=== PATIENT | female | born 1965 | race Caucasian/White ===

== ENCOUNTER 2021-10-19 16:00 | Outpatient (CLI) | payer BC, SELFPAY ==
[2021-10-19 14:16] LABS: Chloride* 106 mmol/L (96-114); Potassium* 4.4 mmol/L (3.6-5.1); Sodium* 142 mmol/L (135-149)
[2021-10-19 14:19] LABS: Blood Urea Nitrogen* 20 mg/dL (7-30); Carbon Dioxide* 28 mmol/L (20-32); Creatinine* 0.8 mg/dL (0.5-1.5); Estimated Glomerular Filt Rate 86 ml/min
[2021-10-19 14:20] LABS: Calcium* 9.6 mg/dL (8.4-10.6); Glucose* 99 mg/dL (60-115)
== END 2021-10-19 16:01 | disposition home or self-care (01) ==
PROVIDERS: PCP Family Medicine; Visit Provider Family Medicine
DX: R30.0 Dysuria (principal); Z13.1 Encounter for screening for diabetes mellitus
CPT/HCPCS: 80048; 87086; 87186

== ENCOUNTER 2022-01-17 10:50 | Outpatient (CLI) | payer BC, SELFPAY ==
--- OUTSIDE RECORDS SUMMARY | 2022-01-17 10:53 | XMS_ITS | Encounter Summary ---
:1965 Author Organization [place] Address [facility] [address] Care Team Providers Name Role Phone Stan Lomas MD Primary Care Provider Reason for Referral Diagnostic Imaging XR (Routine) - Closed Specialty Diagnoses / Procedures Referred By Contact Refer red To Contact Diagnoses Encounter for lipid screening for cardiovascular disease Stan Lomas MD Procedures Radiologist Consult For Cardiology Radiologist Consult For Cardiology [facility] [address] [place] [address] Referral ID Status Reason Start Date Expiration Date Visits Requ ested Visits Authorized [id number] Closed 05/19/2020 05/19/2021 [address] Scan (Routine) - Denied Specialty Diagnoses / Procedures Referred By Contact Refer red To Contact Radiology. Diagnoses Encounter for lipid screening for cardiovascular disease Stan Lomas MD Rh Ct Scan Procedures CT Coronary Calcium Scan CT Coronary Calcium Scan [facility] [address] [place], [place] [address] [address] [place] [address] Referral ID Status Reason Start Date Expiration Date Visits Requ ested Visits Authorized [id number] Denied 05/18/2020 05/18/2021 1 0 Reason for Visit Diagnostic Imaging CT Scan (Routine) - Denied Specialty Diagnoses / Procedures Referred By Contact Refer red To Contact Radiology. Diagnoses Encounter for lipid screening for cardiovascular disease Stan Lomas MD Rh Ct Scan Procedures CT Coronary Calcium Scan CT Coronary Calcium Scan [facility] [address] [facility] [place], [place] [address] [address] [place] [address] Referral ID Status Reason Start Date Expiration Date Visits Requ ested Visits Authorized [id number] Denied 05/18/2020 05/18/2021 1 0 Encounter Details Date Type Department Care Team Description 07/13/2020 [facility] Non-Fv Credentialed Pro vider, Radiology Encounter for lipid Encounter [facility] Anish Caballero MD [address] [place] [address] screening for [address] [address] Social History Tobacco Use Types Packs/Day Years Used Date Smoking Tobacco: Never Alcohol Use Standard Drinks/Week Comments No 0 (1 standard drink = 0.6 oz pure alcoho l) Sex Assigned at Date Recorded Not on file COVID-19 Exposure Response Date Recorded In the last month, have you been in contact with No / Unsure 07/13/2020 12:43 PM CDT someone who was confirmed or suspected to have Coronavirus / COVID-19? documented as of this encounter Medications at Time of Discharge Medication Sig Dispensed Refills Start Date End Date estradiol (ESTRACE) 1 MG Take 1 tablet by 90 tablet 3 02/20 tabletIndications: Need for mouth daily. prophylactic hormone replacement therapy (postmenopausal) losartan (COZAAR) 50 MG Take 0.5 tablets by 90 tablet 3 11/2012 tabletIndications: mouth daily. Unspecified essential hypertension MULTI-VITAMIN OR TABS one daily 0 11/04/2003 simvastatin (ZOCOR) 40 MG Take 1 tablet by 90 tablet 3 02/11 tabletIndications: Mixed mouth at HS hyperlipidemia VITAMIN C 500 MG OR TABS ONE TABLET DAILY 3 MONTHS 1 01/03 VITAMIN E 400 UNIT OR CAPS 1 qod 3 MONTHS 1 7 documented as of this encounter Plan of Treatment Not on filedocumented as of this encounter Procedures Procedure Name Priority Date/Time Associated Diagnosis Comme nts RADIOLOGIST CONSULT Routine 07/13/2020 1:08 Encounter for lipi d Results for this FOR CARDIOLOGY PM CDT screening for procedure ar e in cardiovascular disease the r esults section. CT CALCIUM SCREENING Routine 07/13/2020 1:08 Encounter for lip id Results for this PM CDT screening for procedure are in cardiovascular disease the r esults section. documented in this encounter Results Radiologist Consult For Cardiology (07/13/2020 1:08 PM CDT) Anatomical Region Laterality Modality Computed Tomography Specimen (Source) Anatomical Location Collection Method / Collectio n Time Received Time / Laterality Volume Narrative 07/13/2020 3:57 PM CDT RADIOLOGIST CONSULT FOR CARDIOLOGY 07/13/2020 1:08 PM HISTORY: 54-year-old woman with screenin g exam for cardiovascular disease. COMPARISON: May 24, 2016. TECHNIQUE: Axial noncontrast CT images o btained through the heart. FINDINGS: Please note this report will f ocus on soft tissue findings. Please see separate cardiology report fo r all cardiac and vascular findings. No abnormally enlarged mediastinal lymph nodes. The visible solid organs in the upper abdomen are unremark able. No acute osseous abnormality. 3 mm nodule in the right maggie ng near the minor fissure is again identified and unchanged. Scattere d bibasilar opacities more pronounced than previous exam, may be at electasis. DERECK PATEL MD Procedure Note Dereck Patel MD - 07/13/2020 RADIOLOGIST CONSULT FOR CARDIOLOGY 1:08 PM HISTORY: 54-year-old woman with screenin g exam for cardiovascular disease. COMPARISON: May 24, 2016. TECHNIQUE: Axial noncontrast CT images o btained through the heart. FINDINGS: Please note this report will f ocus on soft tissue findings. Please see separate cardiology report fo r all cardiac and vascular findings. No abnormally enlarged mediastinal lymph nodes. The visible solid organs in the upper abdomen are unremark able. No acute osseous abnormality. 3 mm nodule in the right maggie ng near the minor fissure is again identified and unchanged. Scattere d bibasilar opacities more pronounced than previous exam, may be at electasis. DERECK PATEL MD Stan Lomas MD IMG DIAGNOSTIC IMAGING ORDER JACQUELINE CT Coronary Calcium Scan (07/13/2020 1:08 PM CDT) Anatomical Region Laterality Modality Chest, UMP CT CTA Computed Tomography Specimen (Source) Anatomical Location Collection Method / Collectio n Time Received Time / Laterality Volume Narrative 07/13/2020 2:12 PM CDT Procedure: CT CALCIUM SCREENING Examination Date: 07/13/2020 1:08 PM Clinical Information: Encounter for lipi d screening for cardiovascular disease; Encounter for lipid screening f or cardiovascular disease Ordering Provider: Stan Lomas PROCEDURE: High-resolution, ECG synchron ized multi-slice computed tomography was performed without inciden t. Coronary calcification was analyzed using [employer] calcium scoring software. Scan protocol was optimized to minimize radiation exposure . The total radiation exposure was calculated to be 123 DLP and 1.722 m Sv. FINDINGS: Overall quality of the study: Good. CORONARY ARTERY CALCIUM SCORES: Left main coronary artery: 0 Left anterior descending coronary artery : 0 Circumflex coronary artery: 0 Right coronary artery: 0 TOTAL CALCIUM SCORE: 0 The total Agatston calcium score is 0. The ascending aorta at the level of the right pulmonary artery on this noncontrast study is mildly dilated dustin uring 3.77 x 3.73 cm. Please review Radiology report for incid ental noncardiac findings that will follow separately CALCIUM SCORE OF ZERO: A calcium score o f zero places this individual in the lowest quartile when compared to an age and gender matched control group. If the patient has more t rausch one cardiac risk factor then the risk of coronary heart disease, or myocardial infarction is less than 0.4% per year (Gallo Patel. et al. JACC, 2007; 49:378-402). GENERAL RECOMMENDATIONS: Adoption and ma intenance of a healthy lifestyle is recommended for all people. This should include regular, appropriate exercise and observance of a proper diet, to ensure balanced nutrition and weight control. T obacco use should be avoided. Cholesterol has been linked to coronary atherosclerosis, and we strongly encourage adhering to the recom mendations of the National Cholesterol Education Panel (NCEP). For primary prevention, these include a target goal for total choleste rol of less than 200 mg/dl, HDL cholesterol of greater than 40 mg/dl , triglycerides of less than 150 mg/dl, and LDL cholesterol of less t rausch 130 mg/dl. However note that these are general recommendations o nly, and as with all such matters, the personal physician should b e consulted regarding recommendations appropriate for the gladis vidual. ANISH KILGORE MD Procedure Note Anish Caballero MD - 021 Procedure: CT CALCIUM SCREENING Examination Date: 07/13/2020 1:08 PM Clinical Information: Encounter for lipi d screening for cardiovascular disease; Encounter for lipid screening f or cardiovascular disease Ordering Provider: Stan Lomas PROCEDURE: High-resolution, ECG synchron ized multi-slice computed tomography was performed without inciden t. Coronary calcification was analyzed using [employer] calcium scoring software. Scan protocol was optimized to minimize radiation exposure . The total radiation exposure was calculated to be 123 DLP and 1.722 m Sv. FINDINGS: Overall quality of the study: Good. CORONARY ARTERY CALCIUM SCORES: Left main coronary artery: 0 Left anterior descending coronary artery : 0 Circumflex coronary artery: 0 Right coronary artery: 0 TOTAL CALCIUM SCORE: 0 The total Agatston calcium score is 0. The ascending aorta at the level of the right pulmonary artery on this noncontrast study is mildly dilated dustin uring 3.77 x 3.73 cm. Please review Radiology report for incid ental noncardiac findings that will follow separately CALCIUM SCORE OF ZERO: A calcium score o f zero places this individual in the lowest quartile when compared to an age and gender matched control group. If the patient has more t rausch one cardiac risk factor then the risk of coronary heart disease, or myocardial infarction is less than 0.4% per year (Raquel blackburn P. et al. JACC, 2007; 49:378-402). GENERAL RECOMMENDATIONS: Adoption and ma intenance of a healthy lifestyle is recommended for all people. This should include regular, appropriate exercise and observance of a proper diet, to ensure balanced nutrition and weight control. T obacco use should be avoided. Cholesterol has been linked to coronary atherosclerosis, and we strongly encourage adhering to the recom mendations of the National Cholesterol Education Panel (NCEP). For primary prevention, these include a target goal for total choleste rol of less than 200 mg/dl, HDL cholesterol of greater than 40 mg/dl , triglycerides of less than 150 mg/dl, and LDL cholesterol of less t rausch 130 mg/dl. However note that these are general recommendations o nly, and as with all such matters, the personal physician should b e consulted regarding recommendations appropriate for the gladis vidual. ANISH KILGORE MD Stan Lomas MD IMG CT ORDERABLES documented in this encounter Visit Diagnoses Diagnosis Encounter for lipid screening for cardio vascular disease documented in this encounter Care Teams Pantograph Ii Engraver Relationship Specialty Start Date End Date Stan Lomas MD PCP - General Family Practice 05/02/[address] [facility] [address] [place] [address] documented as of this encounter
--- OUTSIDE RECORDS SUMMARY | 2022-01-17 10:53 | XMS_ITS | Encounter Summary ---
:1965 Author Organization [place] Address [address] [place] [address]. [place] [address] Care Team Providers Name Role Phone Dominick Shanks MD Primary Care Provider [phone] Reason for Visit Reason Onset Date Comments Outreach 05/21/2014 REATTRIBUTION Encounter Details Date Type Department Care Team Description 05/21/2014 Telephone [place] [facility] [address] [address] Social History Tobacco Use Types Packs/Day Years Used Date Smoking Tobacco: Never Alcohol Use Standard Drinks/Week Comments No 0 (1 standard drink = 0.6 oz pure alcoho l) Sex Assigned at Date Recorded Not on file documented as of this encounter Miscellaneous Notes Telephone Encounter - Joann Jimenez - 05/21/2014 3:19 PM CDT 05/21/2014 Call Regarding ReattributionPhysical Attempt n/a Message n/a Comments: SURESH scanned in. No call made. Outreach Web Sizer Joann Adames documented in this encounter Plan of Treatment Not on filedocumented as of this encounter Visit Diagnoses Not on filedocumented in this encounter Care Teams Border Patrol Agent Relationship Specialty Start Date End Date Dominick Shanks MD PCP - General 08/17/02 05/01/16 [place] [address] documented as of this encounter
--- OUTSIDE RECORDS SUMMARY | 2022-01-17 10:53 | XMS_ITS | Encounter Summary ---
:1965 Author Organization [place] Address [address] [place] [address]. [place] [address] Care Team Providers Name Role Phone Dominick Shanks MD Primary Care Provider [phone] Reason for Visit Reason Comments Derm Problem right thigh sore Encounter Details Date Type Department Care Team Description 08/28/2010 Office Visit [facility] Dominick Shanks Skin rash (Primary Dx) Shea Love MD [facility] XXX NO INFO FOUND [place] [address] XXX [phone] [place] [address] Social History Tobacco Use Types Packs/Day Years Used Date Smoking Tobacco: Never Alcohol Use Standard Drinks/Week Comments No 0 (1 standard drink = 0.6 oz pure alcoho l) Sex Assigned at Date Recorded Not on file documented as of this encounter Last Filed Vital Signs Vital Sign Reading Time Taken Comments Blood Pressure 136/90 08/28/2010 4:49 PM CDT Pulse - - Temperature 37.1 ??C (98.7 ??F) 08/28/2010 4:49 PM CDT Respiratory Rate - - Oxygen Saturation - - Inhaled Oxygen Concentration - - Weight 102.1 kg (225 lb) 08/28/2010 4:49 PM CDT Height 174 cm (5' 8.5) 08/28/2010 4:49 PM CDT Body Mass Index 33.71 08/28/2010 4:49 PM CDT documented in this encounter Progress Notes Dominick Shanks - 08/28/2010 7:19 PM CDT An area of skin rash that suddenly showed up on the patient's right thigh. Does not recall any particular irritation or injury or insect bite. It appears to be a area of eczema measuring about 2 cm. Also, she has a first degree sunburn on the dorsum of both feet. Given Diprolene for the skin rash. Use sparingly. Given a small sample of Silvadene cream for her feet. documented in this encounter Nursing Notes 08/28/2010 4:30 PM CDT >> SHERRI SOMMER Mon Aug 28, 2010 4:50 PM Patient presents with: Derm Problem - right thigh sore Initial BP 136/90 Temp 98.7 ??F (37.1 ??C) Ht 5' 8.5 (1.74 m) Wt 225 lb (102.059 kg) BMI 33.71 kg/m2 LMP 08/07/2006 Estimated Body mass index is 33.71 kg/(m^2) as calculated from the following: Height as of this encounter: 5' 8.5(1.74 m). Weight as of this encounter: 225 lb(102.059 kg).. BP completed using cuff size: large. Sherri Sommer/ CAMILA documented in this encounter Plan of Treatment Not on filedocumented as of this encounter Visit Diagnoses Diagnosis Skin rash - Primary Rash and other nonspecific skin eruption documented in this encounter Care Teams Quill Picking Machine Operator Relationship Specialty Start Date End Date Dominick Shanks MD PCP - General 08/17/02 05/01/16 [place] [address] documented as of this encounter
--- OUTSIDE RECORDS SUMMARY | 2022-01-17 10:53 | XMS_ITS | Encounter Summary ---
:1965 Author Organization [place] Address [address] [place] [address]. [place] [address] Care Team Providers Name Role Phone Stan Lomas MD Primary Care Provider Reason for Visit (Routine) - Closed Specialty Diagnoses / Procedures Referred By Contact Refer red To Contact Radiology / Radiology. Diagnoses sb pt, aware of fee Rh Ct Scan Procedures CT CALCIUM SCREENING [address] [place] [address] Phone: Fax: Referral ID Status Reason Start Date Expiration Date Visits Requ ested Visits Authorized [id number] Closed 05/24/2016 05/02/2017 1 1 Encounter Details Date Type Department Care Team Description 05/24/2016 [facility] Non-Fv Credentialed Fam loc history of Encounter [facility] Imaging Provider, Lab heart disease [address] [place] [address] Social History Tobacco Use Types Packs/Day Years Used Date Smoking Tobacco: Never Alcohol Use Standard Drinks/Week Comments No 0 (1 standard drink = 0.6 oz pure alcoho l) Sex Assigned at Date Recorded Not on file documented as of this encounter Medications at [...] encounter Procedures Procedure Name Priority Date/Time Associated Comments Diagnosis RADIOLOGIST CONSULT Routine 05/24/2016 1:58 PM Family history of Results for this FOR CARDIOLOGY CDT heart disease procedure ar e in the results section. CT CALCIUM SCREENING Routine 05/24/2016 1:58 PM Family history of Results for this CDT heart disease procedure are in the results section. documented in this encounter Results Radiologist Consult For Cardiology (05/24/2016 1:58 PM CDT) Anatomical Region Laterality Modality Computed Tomography Specimen (Source) Anatomical Location Collection Method / Collectio n Time Received Time / Laterality Volume Impressions 05/25/2016 8:01 AM CDT IMPRESSION: Two pulmonary nodules in the right lung, recommend dedicated chest CT without contrast to e valuate for additional pulmonary nodules in the nonvisualized p ortion of the lungs. LAURA DUMONT DO Narrative 05/25/2016 8:01 AM CDT RADIOLOGIST CONSULT FOR CARDIOLOGY ?? 05/24/2016 1:58 PM HISTORY: Family history of ischemic hear t disease and other diseases of the circulatory system. TECHNIQUE: CT chest without contrast. CT protocol was ordered by the cardiology service. COMPARISON: None. FINDINGS: Limited CT of the chest shows no pleural effusion, pericardial effusion or pneumothorax. No axillary or mediastinal lymphadenopathy. The heart is not enlarg ed. Minimal atelectasis in the lingula and left lower lobe. 3 mm pulmon gaby nodule in the right upper lobe (series 5, image 16). 2 mm pulmonar y nodule in the right upper lobe (series 2, image 21). Central airwa ys are patent. Bones: No suspicious bony lesions. Upper abdomen: Limited evaluation of the upper abdomen shows no focal abnormality. Procedure Note Laura Dumont DO - 2016 RADIOLOGIST CONSULT FOR CARDIOLOGY 2016 1:58 PM HISTORY: Family history of ischemic hear t disease and other diseases of the circulatory system. TECHNIQUE: CT chest without contrast. CT protocol was ordered by the cardiology service. COMPARISON: None. FINDINGS: Limited CT of the chest shows no pleural effusion, pericardial effusion or pneumothorax. No axillary or mediastinal lymphadenopathy. The heart is not enlarg ed. Minimal atelectasis in the lingula and left lower lobe. 3 mm pulmon gaby nodule in the right upper lobe (series 5, image 16). 2 mm pulmonar y nodule in the right upper lobe (series 2, image 21). Central airwa ys are patent. Bones: No suspicious bony lesions. Upper abdomen: Limited evaluation of the upper abdomen shows no focal abnormality. IMPRESSION: Two pulmonary nodules in the right lung, recommend dedicated chest CT without contrast to e valuate for additional pulmonary nodules in the nonvisualized p ortion of the lungs. LAURA DUMONT DO Referred Self IMRaquel DIAGNOSTIC IMAGING ORDER JACQUELINE CT Calcium Screening (05/24/2016 1:58 PM CDT) Anatomical Region Laterality Modality Chest, SUBRAD IR PROCEDURE, UMP CT CTA C omputed Tomography Specimen (Source) Anatomical Location Collection Method / Collectio n Time Received Time / Laterality Volume Narrative 05/24/2016 4:25 PM CDT Procedure: CT CALCIUM SCREENING Examination Date: 05/24/2016 1:58 PM Clinical Information: Family history of ischemic heart disease and other diseases of the circulatory system Ordering Provider: Self PROCEDURE: High-resolution, ECG synchron ized multi-slice computed tomography was performed without inciden t. Coronary calcification was analyzed using [employer] calcium scoring software. Scan protocol was optimized to minimize radiation exposure . The total radiation exposure was calculated to be 136 DLP and 1.9 mSv . FINDINGS: Overall quality of the study: Good. CORONARY ARTERY CALCIUM SCORES: Left main coronary artery: 0 Left anterior descending coronary artery : 0 Circumflex coronary artery: 0 Right coronary artery: 0 TOTAL CALCIUM SCORE: 0 The total Agatston calcium score is 0. Impressions No evidence of coronary artery calcifica tion Please review Radiology report for incid ental [...] infarction is less than 0.4% per year (Monserrat Patel et al. [facility], 2007; 49:378-402). GENERAL RECOMMENDATIONS: Adoption and ma [...] regarding recommendations appropriate for the gladis vidual. AMADOR ESCOBEDO MD Procedure Note Amador Escobedo MD - 05/24/2016For matting of this note might be different from the original. Procedure: CT CALCIUM SCREENING Examination Date: 05/24/2016 1:58 PM Clinical Information: Family history of ischemic heart disease and other diseases of the circulatory system Ordering Provider: Self PROCEDURE: High-resolution, ECG synchron ized multi-slice computed tomography was performed without inciden t. Coronary calcification was analyzed using [employer] calcium scoring software. Scan protocol was optimized to minimize radiation exposure . The total radiation exposure was calculated to be 136 DLP and 1.9 mSv . FINDINGS: Overall quality of the study: Good. CORONARY ARTERY CALCIUM SCORES: Left main coronary artery: 0 Left anterior descending coronary artery : 0 Circumflex coronary artery: 0 Right coronary artery: 0 TOTAL CALCIUM SCORE: 0 The total Agatston calcium score is 0. Impressions No evidence of coronary artery calcifica tion Please review Radiology report for incid ental [...] infarction is less than 0.4% per year (Monserrat Patel et al. [facility], 2007; 49:378-402). GENERAL RECOMMENDATIONS: Adoption and ma [...] consulted regarding recommendations appropriate for the gladis dual. AMADOR ESCOBEDO MD Referred Self IMRaquel CT ORDERABLES documented in this encounter Visit Diagnoses Diagnosis Family history of heart disease documented in this encounter Care Teams Relations Mgr Relationship Specialty Start Date End Date Stan Lomas MD PCP - General Family Practice 05/02/16 [facility] [address] [place] [address] documented as of this encounter
--- OUTSIDE RECORDS SUMMARY | 2022-01-17 10:53 | XMS_ITS | Encounter Summary ---
:1965 Author Organization [place] Address [address] [place] [address] Care Team Providers Name Role Phone Dominick Shanks MD Primary Care Provider [phone] Reason for Visit Reason Onset Date Comments Refill Request 03/02/2009 Estradiol Encounter Details Date Type Department Care Team Description 03/02/2009 Refill [facility] Dominick Castro Refill Request 1447 [facility] MD Ivan (Estradiol) [place] [address] XXX NO INFO FOUND [phone] [place] [address] (Wo rk) Social History Tobacco Use Types Packs/Day Years Used Date Smoking Tobacco: Never Alcohol Use Standard Drinks/Week Comments No 0 (1 standard drink = 0.6 oz pure alcoho l) Sex Assigned at Date Recorded Not on file documented as of this encounter Miscellaneous Notes Telephone Encounter - Gretchen Nath - 03/04/2009 9:21 AM CST Script faxed to pharmacy-Gretchen Jordan HOBBER OPERATOR documented in this encounter Plan of Treatment Not on filedocumented as of this encounter Visit Diagnoses Diagnosis Need for prophylactic hormone replacemen t therapy (postmenopausal) documented in this encounter Care Teams Transformation Consultant Relationship Specialty Start Date End Date Dominick Shanks MD PCP - General 08/17/02 05/01/16 [place] [address] documented as of this encounter
--- OUTSIDE RECORDS SUMMARY | 2022-01-17 10:53 | XMS_ITS | Encounter Summary ---
:1965 Author Organization [facility] Address [address] [place] [address]. [place] [address] Care Team Providers Name Role Phone Stan Lomas MD Primary Care Provider Encounter Details Date Type Department Care Team Description 12/14/[address] [facility] Scan, CLINIC REFERRAL Health Info [facility] Non-Provider [facility] [address] [place] [id number] Social History Tobacco Use Types Packs/Day Years Used Date Smoking Tobacco: Never Alcohol Use Standard Drinks/Week Comments No 0 (1 standard drink = 0.6 oz pure alcoho l) Sex Assigned at Date Recorded Not on file documented as of this encounter Plan of Treatment Not on filedocumented as of this encounter Visit Diagnoses Not on filedocumented in this encounter Care Teams Utility Porter Relationship Specialty Start Date End Date Stan Lomas MD PCP - General Family Practice 05/02/16 [facility] [address] [place] [address] documented as of this encounter
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
--- OUTSIDE RECORDS SUMMARY | 2022-01-17 10:53 | XMS_ITS | Encounter Summary ---
:1965 Author Organization [place] Address [address] [place] [address]. [place] [address] Care Team Providers Name Role Phone Stan Lomas MD Primary Care Provider Encounter Details Date Type Department Care Team Description 07/13/2020 Travel Social History Tobacco Use Types Packs/Day Years [...] / COVID-19? documented as of this encounter Plan of Treatment Not on filedocumented as of this encounter Visit Diagnoses Not on filedocumented in this encounter Care Teams Data Manager Relationship Specialty Start Date End Date Stan Lomas MD PCP - General Family Practice 05/02/16 [facility] [address] [place] [address] documented as of this encounter
--- OUTSIDE RECORDS SUMMARY | 2022-01-17 10:53 | XMS_ITS | Encounter Summary ---
:1965 Author Organization [place] Address [address] [place] [id number] Care Team Providers Name Role Phone Dominick Shanks MD Primary Care Provider [phone] Encounter Details Date Type Department Care Team Description 08/03/2009 Medical Correspondence [facility] Dominick Shanks Med. Exam Cert. Shea Love MD [address] FOUND [place] [address] XXX [phone] [place] [id number] Social History Tobacco Use Types Packs/Day Years Used Date Smoking Tobacco: Never Alcohol Use Standard Drinks/Week Comments No 0 (1 standard drink = 0.6 oz pure alcoho l) Sex Assigned at Date Recorded Not on file documented as of this encounter Plan of Treatment Not on filedocumented as of this encounter Visit Diagnoses Not on filedocumented in this encounter Care Teams Converter Operator Relationship Specialty Start Date End Date Dominick Shanks MD PCP - General 08/17/02 05/01/16 XXX NO INFO FOUND XXX [place] [address] documented as of this encounter
--- OUTSIDE RECORDS SUMMARY | 2022-01-17 10:53 | XMS_ITS | Encounter Summary ---
:1965 Author Organization [facility] Address [address] [place] [address]. [place] [address] Care Team Providers Name Role Phone Dominick Shanks MD Primary Care Provider [phone] Reason for Visit Reason Comments Physical with fasting labs Encounter Details Date Type Department Care Team Description 01/05/2009 Office Visit [facility] Dominick Shanks Mixed Hyp erlipidemia; Shea Love MD HYPERTENSION NOS; 1447 [facility] XXX NO INFO FOUND Well Woman Exam with Routine Gynecological Exam; [place] [address] XXX Need for Prophylactic Hormone Replacemen t Therapy (Postmenopausal) [phone] [place], [place] [address] Social History Tobacco Use Types Packs/Day Years Used Date Smoking Tobacco: Never Alcohol Use Standard Drinks/Week Comments No 0 (1 standard drink = 0.6 oz pure alcoho l) Sex Assigned at Date Recorded Not on file documented as of this encounter Last Filed Vital Signs Vital Sign Reading Time Taken Comments Blood Pressure 104/70 01/05/2009 9:59 AM BAKER CHEF Pulse 70 01/05/2009 9:59 AM BAKER CHEF Temperature 36.6 ??C (97.8 ??F) 01/05/2009 9:59 AM BAKER CHEF Respiratory Rate - - Oxygen Saturation - - Inhaled Oxygen Concentration - - Weight 99.8 kg (220 lb) 01/05/2009 9:59 AM BAKER CHEF Height 175.3 cm (5' 9) 01/05/2009 9:59 AM BAKER CHEF Body Mass Index 32.49 01/05/2009 9:59 AM BAKER CHEF documented in this encounter Progress Notes Rosenda Rodriguez - 01/13/2009 1:16 PM CST 01-05-09-Nathalie Andrés-Annual exam. Working very hard. Lots of stress. This is primarily from her ???s drinking. She is again talking about leaving if he does not go into treatment. SOR: HEENT negative. C-R, good exercise tolerance, etc. GI, no change in bowel habits. No bleeding. , menses unchanged. No abnormal bleeding. No urinary symptoms. Remainder of SOR is negative. Labs, CBC, chemistry and lipids are all normal. Pap taken. UA negative. She is going to continue the same medication. Talked about stress, taking medication for the stress.She does not seem to need that now. She will set up her own mammogram. She will call prn. R CHEF documented in this encounter Nursing Notes 01/05/2009 10:00 AM CST >> FRANCISCO PARNELL Wed Jan 05, 2009 10:00 AM Patient presents with: Physical - with fasting labs BP 104/70 Pulse 70 Temp (Src) 97.8 ??F (36.6 ??C) (Tympanic) Ht 5' 9 (1.753 m) Wt 220 lb (99.791 kg) LMP Hysterectomy Body Mass Index is Body mass index is 32.49 kg/(m^2). BP completed using cuff size: bella Parnell RN documented in this encounter Plan of Treatment Not on filedocumented as of this encounter Procedures Procedure Name Priority Date/Time Associated Diagnosis Comme nts HCL UA MICRO IF Routine 01/05/2009 10:41 HYPERTENSION NO S Results for this POSITIVE AM BAKER CHEF Well Woman Exam with procedu re are in Routine Gynecological the re sults Exam section. CL AFF CBC WITH Routine 01/05/2009 10:41 Well Woman Exam with Results for this PLATELETS, DIFF AM BAKER CHEF Routine Gynecological pro cedure are in Exam the results section. HCL COMPREHENSIVE Routine 01/05/2009 10:41 HYPERTENSION NOS Results for this METABOLIC PANEL AM BAKER CHEF Well Woman Exam with proc edure are in Routine Gynecological the re sults Exam section. CL AFF A.M.A. LIPID Routine 01/05/2009 10:41 Mixed Hyperlipide perlita Results for this PANEL AM BAKER CHEF procedure are i n the results section. HCL PAP THIN LAYER Routine 01/05/2009 12:00 Well Woman Exam wi th Results for this SCREEN AM BAKER CHEF Routine Gynecological proced ure are in Exam the results section. documented in this encounter Results (ABNORMAL) CBC WITH PLATELETS, DIFF (01/05/2009 10:41 AM BAKER CHEF) Patholo gist Method Time Signature WBC 8.1 4.0 - [facility] 11.0 10e9/L RBC Count 5.49 (H) 3.8 - 5.2 [facility] 10e12/L Hemoglobin 15.4 11.7 - [facility] 15.7 g/dL Hematocrit 49.1 (H) 35.0 - [facility] 47.0 % MCV 90 78 - 100 [facility] fl MCH 28.1 26.5 - [facility] 33.0 pg MCHC 31.4 (L) 31.5 - [facility] 36.5 g/dL RDW 12.9 10.0 - [facility] 15.0 % Platelet Count 263 150 - 450 [facility] 10e9/L Diff Method Automated [facility] Method % Lymphocytes 29 20 - 48 % [facility] % Monocytes 5 0 - 12 % [facility] % Granulocytes 66 40 - 75 % [facility] Absolute 2.3 0.8 - 5.3 [facility] Lymphocytes 10e9/L Absolute 0.4 0.0 - 1.3 [facility] Monocytes 10e9/L Absolute 5.4 1.6 - 8.3 [facility] Granulocytes 10e9/L Specimen Anatomical Collection Method Collection Time Receive d Time (Source) Location / / Volume Laterality 01/05/2009 10:41 01/05/2009 AM BAKER CHEF 10:42 AM BAKER CHEF Dominick Shanks MD LABORATORY Performing Organization Address City/State/ZIP Code Phon e Number [facility] A.M.A. COMPREHENSIVE MET.PANEL (01/05/2009 10:41 AM BAKER CHEF) P athologist Signature Sodium 141 133 - 144 [place] mmol/L [facility] Potassium 3.9 3.4 - 5.3 [facility] mmol/L [facility] Chloride 105 94 - 109 [place] mmol/L [facility] Carbon Dioxide 24 20 - 32 [place] mmol/L [facility] Anion Gap 12 6 - 17 [place] mmol/L [facility] Glucose 93 60 - 99 [place] mg/dL [facility] Urea Nitrogen 12 5 - 24 [place] mg/dL [facility] Creatinine 0.78 0.52 - [facility] 1.04 mg/dL [facility] Comment: New IDMS-traceable calibration beginning 06/12/07 GFR Estimate 81 >60 mL/min/1.7m2 [place] [facility] GFR Estimate If Black >90 >60 mL/min/1.7m2 [facility] Calcium 9.3 8.5 - 10.4 mg/dL [facility] Bilirubin Total 0.7 0.2 - 1.3 mg/dL [facility] Albumin 4.2 3.9 - 5.1 g/dL [facility] Protein Total 7.6 6.8 - 8.8 g/dL [facility] Alkaline Phosphatase 96 40 - 150 U/L [facility] EW [facility] ALT 31 0 - 50 U/L [facility] AST 24 0 - 45 U/L [facility] Specimen Anatomical Collection Method Collection Time Receive d Time (Source) Location / / Volume Laterality 01/05/2009 10:41 01/05/2009 AM BAKER CHEF 10:42 AM BAKER CHEF Dominick Shanks MD LABORATORY Performing Organization Address City/State/ZIP Code Phon e Number [facility] [address] [place] [address] [facility] A.M.A. LIPID PANEL (01/05/2009 10:41 AM BAKER CHEF) P athologist Signature Cholesterol 189 0 - 200 [place] mg/dL [facility] Comment: LDL Cholesterol is the primary guide to therapy: LDL-cholesterol goal in high risk patients is <100 mg/dL and in very high risk patients is <70 mg/dL. The NCEP recommends further evaluation of: patients with cholesterol <200 mg/dL if additional risk factors are present, cholesterol >240 mg/dL, triglycerides >150 mg/dL, or HDL <40 mg/dL. Triglycerides 129 0 - 150 mg/dL [facility] HDL Cholesterol 51 50 - 110 mg/dL [facility] LDL Cholesterol Calculated 112 0 - 129 mg/dL [facility] VLDL-Cholesterol 26 0 - 30 mg/dL [place] [facility] Cholesterol/HDL Ratio 3.7 0.0 - 5.0 [facility] Specimen Anatomical Collection Method Collection Time Receive d Time (Source) Location / / Volume Laterality 01/05/2009 10:41 01/05/2009 AM BAKER CHEF 10:42 AM BAKER CHEF Dominick Shanks MD LABORATORY Performing Organization Address City/State/ZIP Code Phon e Number [facility] [address] [place] [address] [facility] UA MICRO IF POSITIVE (01/05/2009 10:41 AM BAKER CHEF) [facility] Method Time Signature Color Urine Yellow [facility] Appearance Urine Clear [facility] Glucose Urine Negative NEG mg/dL [facility] Bilirubin Urine Negative NEG [facility] Ketones Urine Negative NEG mg/dL [facility] Specific [place] 1.020 1.003 - [facility] Urine 1.035 Blood Urine Negative NEG [facility] pH Urine 6.5 5.0 - 7.0 [facility] pH Protein Albumin Negative NEG mg/dL [facility] Urine Urobilinogen 0.2 0.2 - 1.0 [facility] Urine EU/dL Nitrite Urine Negative NEG [facility] Leukocyte Negative NEG [facility] Esterase Urine Source Midstream [facility] Urine Specimen Anatomical Collection Method Collection Time Receive d Time (Source) Location / / Volume Laterality 01/05/2009 10:41 01/05/2009 AM BAKER CHEF 10:42 AM BAKER CHEF Dominick Shanks MD LABORATORY Performing Organization Address City/State/ZIP Code Phon e Number [facility] A THIN LAYER PAP SCREEN (01/05/2009 12:00 AM BAKER CHEF) Component Value Ref Test Analysis [facility]formed At [facility] Range Method Time Signature PAP NIL COPATH Copath Report COPATH Patient Name: NATHALIE RODRIGUEZ MR#: [id number] Specimen #: [id number] Collected: 01/05/2009 Received: 01/05/2009 Reported: 01/10/2009 09:39 Ordering Phy(s): DOMINICK SHANKS SPECIMEN/STAIN PROCESS: Pap thin layer prep screening ([facility]) ? Pap-Cyto x 1, Reflex HPV x 1 SOURCE: Cervical, endocervical ---- Pap thin layer prep screening ([facility]) SPECIMEN ADEQUACY: Satisfactory for evaluation. -Transformation zone component absent. CYTOLOGIC INTERPRETATION: Negative for Intraepithelial Lesion or Malignancy Electronically signed out by: TOMEKA Batista (ASCP) Processed and screened at [facility] ntsid Counts Include [address] CLINICAL HISTORY: Hysterectomy, Previous normal pap Date of Last Pap: 01-06-08, TESTING LAB LOCATION: [address] ??[id number] COLLECTION SITE: Client: ??[facility] Location: JOFP (S) Specimen (Source) Anatomical Collection Method Collection Time Re ceived Time Location / / Volume Laterality 01/05/2009 01/05/2009 2:24 PM BAKER CHEF Dominick Shanks MD LABORATORY Performing Organization Address City/State/ZIP Code Phon e Number [facility] documented in this encounter Visit Diagnoses Diagnosis Mixed hyperlipidemia HYPERTENSION NOS Unspecified essential hypertension Well woman exam with routine gynecologic al exam Routine gynecological examination Need for prophylactic hormone replacemen t therapy (postmenopausal) documented in this encounter Care Teams Auto Garage Mechanic Relationship Specialty Start Date End Date Dominick Shanks MD PCP - General 08/17/02 05/01/16 [place] [address] documented as of this encounter
--- OUTSIDE RECORDS SUMMARY | 2022-01-17 10:53 | XMS_ITS | Encounter Summary ---
:1965 Author Organization [facility] Address [address] [place] [address]. [place] [address] Care Team Providers Name Role Phone Dominick Shanks MD Primary Care Provider [phone] Encounter Details Date Type Department Care Team Description 12/27/2010 Orders Only [facility] Dominick Shanks DIAGNOSIS NOT YET Shea Love MD DEFINED (Primary Dx) 14[address] [facility] XXX NO INFO FOUND [place] [address] XXX [phone] [place] [address] Social History Tobacco Use Types Packs/Day Years Used Date Smoking Tobacco: Never Alcohol Use Standard Drinks/Week Comments No 0 (1 standard drink = 0.6 oz pure alcoho l) Sex Assigned at Date Recorded Not on file documented as of this encounter Plan of Treatment Not on filedocumented as of this encounter Procedures Procedure Name Priority Date/Time Associated Diagnosis Comme nts MA SCREENING DIGITAL BILATERAL Routine 12/27/2010 DIAGNOSIS NOT YET DEFINED documented in this encounter Results Mammo Screening digital (bilat) (12/27/2010) Anatomical Region Laterality Modality Breast Bilateral Other Specimen (Source) Anatomical Location Collection Method / Collectio n Time Received Time / Laterality Volume 12/27/2010 Narrative This result has an attachment that is no t available. Dominick Shanks MD IMG MAMMOGRAPHY ORDERABLES documented in this encounter Visit Diagnoses Diagnosis DIAGNOSIS NOT YET DEFINED - Primary documented in this encounter Care Teams Facepiece Line Supervisor Relationship Specialty Start Date End Date Dominick Shanks MD PCP - General 08/17/02 05/01/16 [place] [address] documented as of this encounter
--- OUTSIDE RECORDS SUMMARY | 2022-01-17 10:53 | XMS_ITS | Encounter Summary ---
:1965 Author Organization [facility] Address [address] [place] [address] Care Team Providers Name Role Phone Stan Lomas MD Primary Care Provider Reason for Visit Reason Comments Consult Left leg VV w/ pain. US done at [facility] (report in yellow folder). No hx of tx Encounter Details Date Type Department Care Team Description 02/08/[address] [facility] Rowan Rivas Vari cose veins of Vein Clinic Zarina Renee MD both lower [address] ex tremities with pain [address] [place] [id number] (Primary Dx) [place] [id number] [place] R[place] [id number] (Wo rk) Social History Tobacco Use Types Packs/Day Years Used Date Smoking Tobacco: Never Smokeless Tobacco: Never Alcohol Use Standard Drinks/Week Comments No 0 (1 standard drink = 0.6 oz pure alcoho l) Sex Assigned at Date Recorded Not on file COVID-19 Exposure Response Date Recorded In the last month, have you been in contact with No / Unsure 02/08/2021 1:39 PM ASSISTANT BRANCH MANAGER someone who was confirmed or suspected to have Coronavirus / COVID-19? documented as of this encounter Progress Notes Rowan Rivas MD - 02/08/2021 2:00 PM CST Images from the original note were not included. [facility] CONSULTATION HPI: Nathalie Bowen is a 55 year old female who presents with complaints of left lower extremity pain and varicose veins. She said that she had an episode of lateral left calf pain with associated hard, tender nodularity around a varicose vein cluster in November of 2020; she was evaluated by her PCP and ultimately referred for further evaluation. She has other varicosities, primarily along the medial left thigh, with throbbing on occasion. She says that she sometimes get similar symptoms in the right thigh. Rubbing the throbbing areas seems to help. She will feel pain maybe 2-3 days in a week, with several weeks of no pain. It is very sporadic. No heaviness or fatigue in her legs, no swelling in her a nkles. No itching or burning of the skin. She has never used compression hose. She believes she has had varicose veins with intermittent throbbing for decades. No history of DVT or trauma to the legs. Ms. Bowen was evaluated at [facility]. She underwent venous duplex US on 12/14/20, with reported findings of patent and competent deep veins in the left leg, with GSV reflux on the left (maximal time 6500 msec) from the mid-thigh to the saphenofemoral junction, with a competent GSV from the ankle to the distal thigh. The SSV was too small to be evaluated, and no note is made of AASV presence orcompetence. I have reviewed and updated the history. PAST MEDICAL HISTORY: Past Medical History: Diagnosis Date ??? Status post hysterectomy 2008 HTN Hyperlipidemia Current Outpatient Medications Medication Sig Dispense Refill ??? estradiol (ESTRACE) 1 MG tablet Take 1 tablet by mouth daily. 90 tablet 3 ??? losartan (COZAAR) 50 MG tablet Take 0.5 tablets by mouth daily. 90 tablet 3 ??? MULTI-VITAMIN OR TABS one daily 0 ??? simvastatin (ZOCOR) 40 MG tablet Take 1 tablet by mouth at HS 90 tablet 3 ??? VITAMIN C 500 MG OR TABS ONE TABLET DAILY 3 MONTHS 1 YEAR ??? VITAMIN E 400 UNIT OR CAPS 1 qod 3 MONTHS 1 YEAR PAST SURGICAL HISTORY: Past Surgical History: Procedure Laterality Date ??? HYSTERECTOMY, PAP NO LONGER INDICATED 02/2006 ??? SURGICAL HISTORY OF - s/p Childbirth x4, AB x2 ??? SURGICAL HISTORY OF - Lapar Tubal fulgaration, resection ??? SURGICAL HISTORY OF - 08/12 Excision Lt axillary mole ??? SURGICAL HISTORY OF - 08/13 Excision Lt arm lesion ??? SURGICAL HISTORY OF - 11/02/05 D&C ,benign ALLERGIES: Allergies Allergen Reactions ??? No Known Drug Allergies FAMILY HISTORY: Family History Problem Relation Age of Onset ??? Diabetes Father ??? Heart Disease Father triple bypass ??? Hypertension Mother ??? Lipids Brother Nobody has varicose veins in the family. No known family history of hypercoagulability or hemophilias. SOCIAL HISTORY: Social History Tobacco Use ??? Smoking status: Never Smoker ??? Smokeless tobacco: Not on file Substance Use Topics ??? Alcohol use: No Never smoker. Does not drink alcohol. No illicit drug use. 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 Enjoys cross-stitch. REVIEW OF SYSTEMS: 10-pt ROS negative except as noted in HPI. Vital signs: [facility] 08/07/2006 PHYSICAL EXAM: General: Sitting comfortably in chair, NAD. HEENT: EOMI and conjugate, MMM Respiratory: Normal respiratory effort. Cardiovascular: Pulse is regular. Musculoskeletal: Normal walking gait around exam room. Grossly normal and symmetric strength and ROMin BLE. edema present. Vascular: dorsalis pedis: palp BL; posterior tibial: palp BL. Cap refill < 3 sec over feet/toes. Veins: right lateral distal thigh and posterior calf varicosities, left medial thigh and anterior thigh varicosities extending to left medial and lateral knee and calf varicosities. No telangiectasias present. Neurologic: A&Ox4 Psychiatric: Pleasantly conversant ASSESSMENT / PLAN: Nathalie Bowen is a 55 year old female who presents with complaints of focal intermittent throbbing along prominent varicosities in the left thigh and calf, and occasionally in the right thigh. ??? I briefly discussed the pathophysiology of venous reflux and how that may be contributing to varicose veins ??? I explained that at her current state, her symptoms are fairly mild and she would likely not qualify for interventions ??? Recommended a trial of conservative therapy with 20-30 mmHg knee or thigh- high compression hose,to be worn daily ??? Ms. Bowen is welcome to follow up in clinic to evaluate response to conservative therapy and discuss further interventions if needed in future Rowan Rivas MD Total time spent on the date of this encounter doing: chart review, review of test results, patient visit, physical exam, education, counseling, developing plan of care, and documenting = 33 minutes STANT BRANCH MANAGER documented in this encounter Nursing Notes Salome Fuller, DEEP - 02/08/2021 2:00 PM CST Patient Reported symptoms: Right leg Heaviness None of the time Achiness A little of the time Swelling None of the time Throbbing None of the time Itching None of the time Appearance Not at all noticeable Impact on work/activities Symptoms but full able to participate Left Leg Heaviness None of the time Achiness A little of the time Swelling None of the time Throbbing A little of the time Itching None of the time Appearance Very noticeable Impact on work/activities Symptoms but full able to participate STANT BRANCH MANAGER documented in this encounter Plan of Treatment Not on filedocumented as of this encounter Visit Diagnoses Diagnosis Varicose veins of both lower extremities with pain - Primary Varicose veins of lower extremities with other complications documented in this encounter Care Teams Field Rep Relationship Specialty Start Date End Date Stan Lomas MD PCP - General Family Practice 05/02/16 [facility] [address] [place] [address] documented as of this encounter
--- OUTSIDE RECORDS SUMMARY | 2022-01-17 10:53 | XMS_ITS | Encounter Summary ---
:1965 Author Organization [facility] Address [address] [place] [address]. [place] [address] Care Team Providers Name Role Phone Dominick Shanks MD Primary Care Provider [phone] Reason for Visit Reason Comments Mole Encounter Details Date Type Department Care Team Description 09/19/2011 Office Visit [facility] Dominick Sahnks Skin lesi on of back Shea Love MD (Primary Dx) [address] [facility] XXX NO INFO FOUND [place] [address] XXX [phone] XXX [place] [address] Social History Tobacco Use Types Packs/Day Years Used Date Smoking Tobacco: Never Alcohol Use Standard Drinks/Week Comments No 0 (1 standard drink = 0.6 oz pure alcoho l) Sex Assigned at Date Recorded Not on file documented as of this encounter Last Filed Vital Signs Vital Sign Reading Time Taken Comments Blood Pressure 120/80 09/19/2011 10:37 AM CDT Pulse 72 09/19/2011 10:37 AM CDT Temperature 36.7 ??C (98 ??F) 09/19/2011 10:37 AM CDT Respiratory Rate - - Oxygen Saturation 96% 09/19/2011 10:37 AM CDT Inhaled Oxygen Concentration - - Weight 103.4 kg (228 lb) 09/19/2011 10:37 AM CDT Height 174.6 cm (5' 8.75) 09/19/2011 10:37 AM CDT Body Mass Index 33.92 09/19/2011 10:37 AM CDT documented in this encounter Progress Notes Dominick Shanks MD - 09/19/2011 6:12 PM CDT Patient has a small lesion of the right upper back which is growing and she wants it removed. Lesion is a keratosis. The margins are well outlined and it is clearly benign. The lesion and removed with hyfrecation under local. No specimens sent. Usual aftercare. documented in this encounter Nursing Notes 09/19/2011 10:00 AM CDT >> SHERRI SOMMER Wed Sep 19, 2011 10:44 AM Mole on right upper back. Initial BP 120/80 Pulse 72 Temp 98 ??F (36.7 ??C) Ht 5' 8.75 (1.746 m) Wt 228 lb (103.42 kg) BMI 33.91 kg/m2 SpO2 96% LMP 08/07/2006 Estimated Body mass index is 33.91 kg/(m^2) as calculated from the following: Height as of this encounter: 5' 8.75(1.746 m). Weight as of this encounter: 228 lb(103.42 kg).. BP completed using cuff size: large. Sherri Sommer/ CAMILA documented in this encounter Plan of Treatment Not on filedocumented as of this encounter Visit Diagnoses Diagnosis Skin lesion of back - Primary Unspecified disorder of skin and subcuta neous tissue documented in this encounter Care Teams Data Services Developer Relationship Specialty Start Date End Date Dominick Shanks MD PCP - General 08/17/02 05/01/16 [place] [address] documented as of this encounter
--- OUTSIDE RECORDS SUMMARY | 2022-01-17 10:53 | XMS_ITS | Encounter Summary ---
:1965 Author Organization [facility] Address [address] [place] [address]. [place] [address] Care Team Providers Name Role Phone Dominick Shanks MD Primary Care Provider [phone] Encounter Details Date Type Department Care Team Description 08/03/2009 Medical Correspondence [facility] Dominick Shanks DOT Form Shea Love MD [address] [place] [address] XXX NO INFO FOUND [place] [address] XXX [phone] [place] [address] Social History Tobacco Use Types Packs/Day Years Used Date Smoking Tobacco: Never Alcohol Use Standard Drinks/Week Comments No 0 (1 standard drink = 0.6 oz pure alcoho l) Sex Assigned at Date Recorded Not on file documented as of this encounter Plan of Treatment Not on filedocumented as of this encounter Visit Diagnoses Not on filedocumented in this encounter Care Teams Alodize Machine Operator Relationship Specialty Start Date End Date Dominick Shanks MD PCP - General 08/17/02 05/01/16 XXX NO INFO FOUND XXX [place] [address] documented as of this encounter
--- OUTSIDE RECORDS SUMMARY | 2022-01-17 10:53 | XMS_ITS | Clinical Summary ---
:1965 Author Organization [facility] Address [address] [place] [address]. [place] [address] Care Team Providers Name Role Phone Stan Lomas MD Primary Care Provider Rowan Rivas MD Unavailable [phone] Allergies Active Allergy Reactions Severity Noted Date Comments No Known Drug Allergies 11/04/2003 Medications Medication Sig Dispensed Refills Start Date End Date Status MULTI-VITAMIN OR TABS one daily 0 11/04/2003 Active VITAMIN E 400 UNIT OR 1 qod 3 MONTHS 1 01/03/2007 Active CAPS VITAMIN C 500 MG OR TABS ONE TABLET DAILY 3 MONTHS 1 01/04/20 07 Active simvastatin (ZOCOR) 40 Take 1 tablet by 90 tablet 3 02/21/2012 Active MG tabletIndications: mouth at HS Mixed hyperlipidemia losartan (COZAAR) 50 MG Take 0.5 tablets 90 tablet 3 3 Active tabletIndications: by mouth daily. Unspecified essential hypertension Additional Information Patient not taking. Reported on 02/08/2021 estradiol (ESTRACE) 1 MG Take 1 tablet by 90 tablet 3 02/20/19 13 Active tabletIndications: Need for mouth daily. prophylactic hormone replacement therapy (postmenopausal) Additional Information Patient not taking. Reported on 02/08/2021 irbesartan (AVAPRO) 150 MG tablet Take 150 mg by mouth daily 0 02/01/2021 Active Active Problems Problem Noted Date HYPERLIPIDEMIA LDL GOAL <130 12/11/2009 Essential hypertension 02/14/2006 Overview: Problem list name updated by automated p rocess. Provider to review Mixed hyperlipidemia 01/16/2005 Family history of malignant neoplasm of breast 005 Status post hysterectomy Overview: 2008 Resolved Problems Problem Noted Date Resolved Date Excessive or frequent menstruation 02/14/200605/03 Immunizations Name Administration Dates Next Due HepB 02/17/2000, 09/13/1999, 08/16/1999 Influenza (IIV3) PF 11/03/2008, 01/06/2008, 12/11/2005, 11/0 02/2004, 12/22/2002 TDAP Vaccine (Adacel) 06/27/2011 Family History Medical History Relation Comments Lipids Brother 3 Diabetes Father Heart Disease Father triple bypass Hypertension Mother Relation Status Comments Brother 1 Alive Brother 2 Alive Brother 3 Father Alive Mother Alive Social History Tobacco Use Types Packs/Day Years Used Date Smoking Tobacco: Never Smokeless Tobacco: Never Alcohol Use Standard Drinks/Week Comments No 0 (1 standard drink = 0.6 oz pure alcoho l) Sex Assigned at Date Recorded Not on file Last Filed Vital Signs Vital Sign Reading Time Taken Comments Blood Pressure 132/80 02/21/2012 9:58 AM FORESTRY FIRE AID Pulse 76 02/21/2012 9:58 AM FORESTRY FIRE A[employer] Temperature 36.6 ??C (97.8 ??F) 02/21/2012 9:58 AM FORESTRY FIRE AID Respiratory Rate 18 08/13/2006 10:45 AM CDT Oxygen Saturation 99% 02/21/2012 9:58 AM FORESTRY FIRE A[employer] Inhaled Oxygen Concentration - - Weight 101.6 kg (224 lb) 02/21/2012 9:58 AM FORESTRY FIRE A[employer] Height 174.6 cm (5' 8.75) 02/21/2012 9:58 AM FORESTRY FIRE AID Body Mass Index 33.32 02/21/2012 9:58 AM FORESTRY FIRE AID Plan of Treatment Health Maintenance Due Date Last Done Comments ADVANCE CARE PLANNING 1965 ANNUAL REVIEW OF HM ORDERS 1965 CT COLONOGRAPHY 1965 FIT-DNA (Cologuard) 1965 FIT 1965 FLEX SIG 1965 COLONOSCOPY 09/11/1975 COLORECTAL CANCER 09/11/1975 SCREENING HIV SCREENING 1980 HEPATITIS C SCREENING 09/11/1983 YEARLY PREVENTIVE VISIT 02/08/2012 02/07/2011, 01/18/2010, 01/05/2009, Additional history exists MAMMO SCREENING 12/27/2012 12/27/2010, 08/25/2009, 12/16/2007, Additional history exists ZOSTER IMMUNIZATION (1 of 09/11/2015 2) LIPID 02/12/2017 02/13/2012, 02/07/2011, 01/18/2010, Additional history exists COVID-19 Vaccine (3 - 09/12/2020 07/18/2020, 06/27/2020 Booster for Pfizer series) PHQ-2 (once per calendar 02/11/2021 year) INFLUENZA VACCINE (#1) 2021 10/21/2020, 10/21/2020, 10/13/2019, Additional history exists DTAP/TDAP/TD IMMUNIZATION 02/01/2031 02/01/2021, 06/27/2011 , (3 - Td or Tdap) 06/27/2011 HEPATITIS B IMMUNIZATION Completed 02/17/2000, 09/13/1999, 08/16/1999 PAP Discontinued 01/05/2009, 01/06/2008, 02/08/2006, Additional history exists IPV IMMUNIZATION Aged Out No longer eligi ble based on patient 's age to complete this topic MENINGITIS IMMUNIZATION Aged Out No longe r eligible based on patient 's age to complete this topic Pneumococcal Vaccine: Aged Out No longer eligible Pediatrics (0 to 5 Years) based on patient's age and At-Risk Patients (6 to to co mplete this topic 64 Years) Insurance Payer Benefit Plan / Subscriber ID Effective Dates Phone Addre ss Type Group BCBS BCBS OF [place] [id number] 2019-Presjason [phone] [address] [address] Indemnity t 0 [place] [address] Advance Directives For more information, please contact: [phone] Latest Code Status on File Code Status Date Activated Date Inactivated Comments None 11/10/2003 4:45 PM 11/10/2003 4:45 PM Care Teams Bander Hand Relationship Specialty Start Date End Date Stan Lomas MD PCP - General Family Practice 05/02/16 [facility] [address] [place] [address] Rowan Rivas Assigned Heart and 02/12/21 MD [facility] Provider [address] [facility] [address] [place] [id number]
--- OUTSIDE RECORDS SUMMARY | 2022-01-17 10:53 | XMS_ITS | Encounter Summary ---
:1965 Author Organization [facility] Address [address] [address] Care Team Providers Name Role Phone Stan Lomas MD Primary Care Provider Reason for Visit Reason Onset Date Comments Referral 12/16/2020 Encounter Details Date Type Department Care Team Description 12/16/2020 Telephone [facility] Nurse, [facility] Referral [place] [address] [place] [id number] Social History Tobacco Use Types Packs/Day Years Used Date Smoking Tobacco: Never Alcohol Use Standard Drinks/Week Comments No 0 (1 standard drink = 0.6 oz pure alcoho l) Sex Assigned at Date Recorded Not on file documented as of this encounter Miscellaneous Notes Telephone Encounter - Thomas Cunningham MA - 12/22/2020 1:40 PM CST Appt made TH POLICY NURSE Telephone Encounter - Nadeen Morales RN - 12/16/2020 12:44 PM CDT Routed to vein clinic scheduling to set up consult appt for patient. CHERYL Bello, RN [facility] Telephone Encounter - Sravanthi Shanks RN - 12/16/2020 10:19 AM CDT Per review of chart and care everywhere: 55-year-old female presents for evaluation of symptomatic left leg varicose veins. I discussed with the patient the etiology of varicose veins. I also discussed the treatment options including compression stockings, endovenous ablation, and varicose vein stripping. I think we will first obtain a left leg insufficiency ultrasound to evaluate this further. I also talked to the patient about wearing thigh-high compression stockings with the pressure of at least 30- 40 mm of mercury. Once the ultrasound comes back, I will call the patient to discuss results. Routing this to [facility] to contact patient and schedule. Sravanthi LUNA, RN [facility] Office: [phone] Telephone Encounter - Dee Dee Kiser - 12/16/2020 10:10 AM CDT Nathalie called stating Dr. Wadsworth with [facility] would like her to be seen at Vascular due to lack of blood flow in one vein, US completed at [facility]. Dee Dee Robert Routing to [facility] documented in this encounter Plan of Treatment Not on filedocumented as of this encounter Visit Diagnoses Not on filedocumented in this encounter Care Teams Web Site Project Manager Relationship Specialty Start Date End Date Stan Lomas MD PCP - General Family Practice 05/02/16 [facility] [address] [place] [address] documented as of this encounter
--- OUTSIDE RECORDS SUMMARY | 2022-01-17 10:53 | XMS_ITS | Encounter Summary ---
:1965 Author Organization [facility] Address [address] [place] [address]. [place] [address] Care Team Providers Name Role Phone Dominick Shanks MD Primary Care Provider [phone] Reason for Visit Reason Onset Date Comments Refill Request 02/13/2012 Simvastatin Encounter Details Date Type Department Care Team Description 02/13/2012 Refill [facility] [place] Miky Fisher MD Refill Request 1447 [facility] [address] [facility] (Simvastatin) [place] [address] [address] [phone] [place], [place] [id number] (Wo rk) Social History Tobacco Use Types Packs/Day Years Used Date Smoking Tobacco: Never Alcohol Use Standard Drinks/Week Comments No 0 (1 standard drink = 0.6 oz pure alcoho l) Sex Assigned at Date Recorded Not on file documented as of this encounter Miscellaneous Notes Telephone Encounter - Hiral Goodwin NP - 02/13/2012 5:43 PM CST . [employer] M[facility]OR Telephone Encounter - Sarita Fraser - 02/13/2012 8:41 AM CST Last refill: 11/09/11 Last Office Visit: 09/19/11 Last Physical: 02/07/11, pt was going to come in for appt today with Dr. Langford. Pt is still coming infor fasting labs and will follow up with Dr. Langford. Pt is requesting a 1 month refill. Ash Fraser RN [employer] [facility]OR documented in this encounter Plan of Treatment Not on filedocumented as of this encounter Visit Diagnoses Diagnosis Mixed hyperlipidemia - Primary documented in this encounter Care Teams Audiovisual Production Specialist Relationship Specialty Start Date End Date Dominick Shanks MD PCP - General 08/17/02 05/01/16 [place] [address] documented as of this encounter
--- OUTSIDE RECORDS SUMMARY | 2022-01-17 10:53 | XMS_ITS | Encounter Summary ---
:1965 Author Organization [facility] Address [address] [place] [address]. [place] [address] Care Team Providers Name Role Phone Dominick Shanks MD Primary Care Provider [phone] Reason for Visit Reason Comments Flu Shot Encounter Details Date Type Department Care Team Description 11/02/2008 Allied Health/Nurse [facility] Dominick Castro Flu Shot Visit 1447 [facility] [place] [address] XXX NO INFO FOUND [phone] [place] [address] (Wo rk) Social History Tobacco Use Types Packs/Day Years Used Date Smoking Tobacco: Never Alcohol Use Standard Drinks/Week Comments No 0 (1 standard drink = 0.6 oz pure alcoho l) Sex Assigned at Date Recorded Not on file documented as of this encounter Progress Notes Oralia Jarrett - 11/03/2008 11:41 AM CDT Injectable Influenza Immunization Documentation 1. Has the patient received the information for the injectable influenza vaccine? YES 2. Is the patient 6 months of age or older? YES 3. Does the patient have any of the following contraindications? Severe allergy to eggs? No Severe allergic reaction to previous influenza vaccines? No Allergy to contact lens solution/thimerosol? No History of Guillain-[place] syndrome? No Currently have moderate or severe illness? No 4. The vaccine has been administered and the patient was instructed to wait 15 minutes before leaving the building in the event of an allergic reaction: NO Vaccination given by Oralia Jarrett LPN documented in this encounter Plan of Treatment Not on filedocumented as of this encounter Visit Diagnoses Diagnosis Need for prophylactic vaccination and in oculation against influenza - Primary documented in this encounter Care Teams Systems Security Consultant Relationship Specialty Start Date End Date Dominick Shanks MD PCP - General 08/17/02 05/01/16 [place] [address] documented as of this encounter
--- OUTSIDE RECORDS SUMMARY | 2022-01-17 10:53 | XMS_ITS | Encounter Summary ---
:1965 Author Organization [facility] Address [address] [place] [address] Care Team Providers Name Role Phone Dominick Shanks MD Primary Care Provider Reason for Visit Reason Comments Blood Draw Encounter Details Date Type Department Care Team Description 02/13/2012 Orders Only [facility] HYPERTENSION NOS (Primary Dx ); 1447 [facility] Hyperlipidemia LDL goal <130 [place], [place] [address] Social History Tobacco Use Types Packs/Day Years Used Date Smoking Tobacco: Never Alcohol Use Standard Drinks/Week Comments No 0 (1 standard drink = 0.6 oz pure alcoho l) Sex Assigned at Date Recorded Not on file documented as of this encounter Miscellaneous Notes Addendum Note - Sourav Ulloa - 02/19/2012 8:51 AM CERTIFIED HISTOLOGIC TECHNICIAN Addended by: SOURAV ULLOA on: 02/19/2012 08:51 AM Modules accepted: Orders IFIED HISTOLOGIC TECHNICIAN documented in this encounter Plan of Treatment Not on filedocumented as of this encounter Procedures Procedure Name Priority Date/Time Associated Diagnosis Comme nts TSH WITH FREE T4 Routine 02/13/2012 8:45 AM Hyperlipidemia LDL goal Results for this REFLEX CERTIFIED HISTOLOGIC TECHNICIAN <130 procedure are in HYPERTENSION NOS the results section. LIPID REFLEX TO Routine 02/13/2012 8:45 AM Hyperlipidemia LDL goal Results for this DIRECT LDL PANEL CERTIFIED HISTOLOGIC TECHNICIAN <130 procedure are in HYPERTENSION NOS the results section. BASIC METABOLIC Routine 02/13/2012 8:45 AM Hyperlipidemia LDL goal Results for this PANEL CERTIFIED HISTOLOGIC TECHNICIAN <130 procedure are in HYPERTENSION NOS the results section. documented in this encounter Results TSH with free T4 reflex (02/13/2012 8:45 AM CERTIFIED HISTOLOGIC TECHNICIAN) athologist Signature TSH 1.57 0.4 - 5.0 [facility] mU/L [facility] Specimen Anatomical Collection Method Collection Time Receive d Time (Source) Location / / Volume Laterality Blood specimen 02/13/2012 8:45 AM 013 8:52 (specimen) CERTIFIED HISTOLOGIC TECHNICIAN AM CERTIFIED HISTOLOGIC TECHNICIAN Miky Langford MD LAB - BLOOD ORDERABLES Performing Organization Address City/[facility]/ZIP Code Phon e Number [facility] [address], [place] [address] [facility] (ABNORMAL) Lipid panel reflex to direct LDL (02/13/2012 8:45 AM CERTIFIED HISTOLOGIC TECHNICIAN) athologist Signature Cholesterol 211 (H) 0 - 200 [place] mg/dL [facility] Comment: LDL Cholesterol is the primary guide to therapy. The NCEP recommends further evaluation of: patients with cholesterol greater than 200 mg/dL if additional risk facto rs are present, cholesterol greater than 240 mg/dL, triglycerides greater than 1 50 mg/dL, or HDL less than 40 mg/dL. Triglycerides 112 0 - 150 mg/dL [facility] Comment: Fasting specimen HDL Cholesterol 55 50 - 110 mg/dL [facility] LDL Cholesterol Calculated 133 (H) 0 - 129 mg/dL [facility] Comment: LDL Cholesterol is the primary guide to therapy: LDL-cholesterol goal in high risk patients is <100 mg/dL and in very high risk patients is <70 mg/dL. VLDL-Cholesterol 22 0 - 30 mg/dL [facility] Cholesterol/HDL Ratio 3.8 0.0 - 5.0 [facility] Specimen Anatomical Collection Method Collection Time Receive d Time (Source) Location / / Volume Laterality Blood specimen 02/13/2012 8:45 AM 013 8:52 (specimen) CERTIFIED HISTOLOGIC TECHNICIAN AM CERTIFIED HISTOLOGIC TECHNICIAN Miky Langford MD LAB - BLOOD ORDERABLES Performing Organization Address City/[facility]/ZIP Code Phon e Number [facility] [address], [place] [address] [facility] Basic metabolic panel (02/13/2012 8:45 AM CERTIFIED HISTOLOGIC TECHNICIAN) P athologist Signature Sodium 143 133 - 144 [place] mmol/L [facility] Potassium 5.3 3.4 - 5.3 [place] mmol/L [facility] Chloride 107 94 - 109 [place] mmol/L [facility] Carbon Dioxide 24 20 - 32 [place] mmol/L [facility] Anion Gap 13 6 - 17 [place] mmol/L [facility] Glucose 73 60 - 99 [place] mg/dL [facility] Comment: Fasting specimen Urea Nitrogen 14 5 - 24 mg/dL [facility] Creatinine 0.67 0.52 - 1.04 mg/dL [facility] GFR Estimate >90 >60 mL/min/1.7m2 [place] O [facility] GFR Estimate If Black >90 >60 mL/min/1.7m2 F [facility] Calcium 10.1 8.5 - 10.4 mg/dL [facility] Specimen Anatomical Collection Method Collection Time Receive d Time (Source) Location / / Volume Laterality Blood specimen 02/13/2012 8:45 AM 013 8:52 (specimen) CERTIFIED HISTOLOGIC TECHNICIAN AM CERTIFIED HISTOLOGIC TECHNICIAN Miky Langford MD LAB - BLOOD ORDERABLES Performing Organization Address City/State/ZIP Code Phon e Number [facility] [address] [place] [address] [facility] documented in this encounter Visit Diagnoses Diagnosis HYPERTENSION NOS - Primary Unspecified essential hypertension Hyperlipidemia LDL goal <130 Other and unspecified hyperlipidemia documented in this encounter Care Teams Facsimile Operator Relationship Specialty Start Date End Date Dominick Shanks MD PCP - General 08/17/02 05/01/16 [place] [address] documented as of this encounter
--- OUTSIDE RECORDS SUMMARY | 2022-01-17 10:53 | XMS_ITS | Encounter Summary ---
:1965 Author Organization [facility] Address [address] [place] [address]. [place] [address] Care Team Providers Name Role Phone Stan Lomas MD Primary Care Provider Encounter Details Date Type Department Care Team Description 02/08/2021 Travel Social History Tobacco Use Types Packs/Day Years Used Date Smoking Tobacco: Never Smokeless Tobacco: Never Alcohol Use Standard Drinks/Week Comments No 0 (1 standard drink = 0.6 oz pure alcoho l) Sex Assigned at Date Recorded Not on file COVID-19 Exposure Response Date Recorded In the last month, have you been in contact with No / Unsure 02/08/2021 1:39 PM DIRECTOR SANITATION BUREAU someone who was confirmed or suspected to have Coronavirus / COVID-19? documented as of this encounter Plan of Treatment Not on filedocumented as of this encounter Visit Diagnoses Not on filedocumented in this encounter Care Teams Compensation And Benefits Analyst Relationship Specialty Start Date End Date Stan Lomas MD PCP - General Family Practice 05/02/16 [facility] [address] [place] [address] documented as of this encounter
--- OUTSIDE RECORDS SUMMARY | 2022-01-17 10:53 | XMS_ITS | Encounter Summary ---
:1965 Author Organization [facility] Address [address] [place] [address] Care Team Providers Name Role Phone Dominick Shanks MD Primary Care Provider [phone] Reason for Visit Reason Onset Date Comments Refill Request 02/07/2011 Simvastatin Encounter Details Date Type Department Care Team Description 02/07/2011 Refill [facility] Dominick Castro Refill Request [address] [facility] MD Ivan (Simvastatin) [place] [address] [place] NO INFO FOUND [phone] [place] [address] (Wo rk) Social History Tobacco Use Types Packs/Day Years Used Date Smoking Tobacco: Never Alcohol Use Standard Drinks/Week Comments No 0 (1 standard drink = 0.6 oz pure alcoho l) Sex Assigned at Date Recorded Not on file documented as of this encounter Miscellaneous Notes Telephone Encounter - Sarita Fraser - 02/07/2011 11:39 AM CST Last refill: 12/19/09 Last Office Visit: 02/07/11 Last Physical: 02/07/11 Ash Fraser RN ER WATER TESTER documented in this encounter Plan of Treatment Not on filedocumented as of this encounter Visit Diagnoses Diagnosis Mixed hyperlipidemia - Primary documented in this encounter Care Teams Sewing Teacher Relationship Specialty Start Date End Date Dominick Shanks MD PCP - General 08/17/02 05/01/16 [place] [address] documented as of this encounter
--- OUTSIDE RECORDS SUMMARY | 2022-01-17 10:53 | XMS_ITS | Encounter Summary ---
:1965 Author Organization [facility] [place] Address [address] [place] [address]. [place] [address] Care Team Providers Name Role Phone Dominick Shanks MD Primary Care Provider [phone] Reason for Visit Reason Comments Physical and pap Encounter Details Date Type Department Care Team Description 02/21/2012 Office Visit [facility] Miky Langford MD Routine general medical examination at a health care facility (Primary Dx); [address] Postnasal drip; [address] [facility] Mixed hyperlipidemia; [place] [address] [place], [place] HYPERTENSION NOS; [phone] Need for prophylactic hormone replacemen t therapy (postmenopausal) Social History Tobacco Use Types Packs/Day Years Used Date Smoking Tobacco: Never Alcohol Use Standard Drinks/Week Comments No 0 (1 standard drink = 0.6 oz pure alcoho l) Sex Assigned at Date Recorded Not on file documented as of this encounter Last Filed Vital Signs Vital Sign Reading Time Taken Comments Blood Pressure 132/80 02/21/2012 9:58 AM GUEST SERVICES COORDINATOR Pulse 76 02/21/2012 9:58 AM GUEST SERVICES COORDINATOR Temperature 36.6 ??C (97.8 ??F) 02/21/2012 9:58 AM GUEST SERVICES COORDINATOR Respiratory Rate - - Oxygen Saturation 99% 02/21/2012 9:58 AM GUEST SERVICES COORDINATOR Inhaled Oxygen Concentration - - Weight 101.6 kg (224 lb) 02/21/2012 9:58 AM GUEST SERVICES COORDINATOR Height 174.6 cm (5' 8.75) 02/21/2012 9:58 AM GUEST SERVICES COORDINATOR Body Mass Index 33.32 02/21/2012 9:58 AM GUEST SERVICES COORDINATOR documented in this encounter Patient Instructions Patient InstructionsBlanca Lau - 02/21/2012 10:00 AM CST PREVENTIVE HEALTH RECOMMENDATIONS: Get a [...] a year for an exam and cleaning. T SERVICES COORDINATOR documented in this encounter Progress Notes Miky Langford MD - 02/21/2012 10:00 AM CST SUBJECTIVE: CC: Nathalie Bowen is an 46 year old woman who presents for preventive health visit. Healthy Habits: ?? Do you get at least three servings of calcium containing foods daily (dairy, green leafy vegetables, etc.)? yes ?? Amount of exercise or daily activities, outside of work: a lot during work day(s) per week ?? Problems taking medications regularly No ?? Medication side effects: No ?? Have you had an eye exam in the past two years? no ?? Do you see a dentist twice per year? yes Other concerns to address: none Today's PHQ-2 Score: 0 Abuse: Current or Past(Physical, Sexual or Emotional)- NA Do you feel safe in your environment - Yes History Substance Use Topics ??? Smoking status: Never Smoker ??? Smokeless tobacco: Not on file ??? Alcohol Use: No The patient does not drink >3 drinks per day nor >7 drinks per week. Last Mammo:No results found. Last lipid profile: Total Cholesterol: Cholesterol Date Value [place] Status 02/13/2012 211* 0 - 200 mg/dL Final LDL Cholesterol is the primary guide to therapy. The NCEP recommends further evaluation of: patients with cholesterol greater than 200 mg/dL if additional risk factors are present, cholesterol greater than 240 mg/dL, triglycerides greater than 150 mg/dL, or HDL less than 40 mg/dL. LDL Cholesterol: LDL Cholesterol Calculated Date Value [place] Status 02/13/2012 133* 0 - 129 mg/dL Final LDL Cholesterol is the primary guide to therapy: LDL-cholesterol goal in high risk patients is <100 mg/dL and in very high risk patients is <70 mg/dL. HDL Cholesterol: HDL Cholesterol Date Value [place] Status 02/13/2012 55 50 - 110 mg/dL Final Reviewed orders with patient. Reviewed health maintenance and updated orders accordingly - Yes History of abnormal Pap smear: All Histories reviewed and updated in [facility]. Blanca Lau MA ROS: C: NEGATIVE for fever, chills, change [...] NEGATIVE for unusual urinary or vaginal symptoms. No vaginal bleeding. M: NEGATIVE for significant arthralgias or myalgia N: NEGATIVE for weakness, dizziness or paresthesias P: NEGATIVE for changes in mood or affect OBJECTIVE: BP 132/80 Pulse 76 Temp(Src) 97.8 ??F (36.6 ??C) (Tympanic) Ht 5' 8.75 (1.746 m) Wt 224 lb (101.606 kg) BMI 33.32 kg/m2 SpO2 99% LMP 08/07/2006 Estimated Body mass index is 33.32 kg/(m^2) as calculated from the following: Height as of this encounter: 5' 8.75(1.746 m). Weight as of this encounter: 224 lb(101.606 kg). GENERAL APPEARANCE: healthy, alert and no distress [...] palpable axillary masses or adenopathy CV: regular rate and rhythm, normal S1 S2, no S3 or S4, no murmur, click or rub, no peripheral edemaand peripheral pulses strong ABDOMEN: soft, nontender, no hepatosplenomegaly, no masses and bowel sounds normal (female): normal female external genitalia, vaginal mucosa pink, moist, well rugated and status post brissa bso, normal cuff MS: no musculoskeletal defects are noted and gait is age appropriate without ataxia SKIN: no suspicious lesions or rashes NEURO: Normal strength and tone, sensory exam grossly normal, mentation intact and speech normal PSYCH: mentation appears normal and affect normal/bright ATP III Guidelines FRAX Risk Assessment ICSI Preventive Guidelines ASSESSMENT/PLAN: Routine general medical examination at a health care facility (primary encounter diagnosis) Plan: lab reviewed with pt, increased LDL, had not focused on diet and exercise, will have her to focus more and recheck in 4 months Postnasal drip Comment: has no other sign infection Plan: antihistamine/sudafe/saline spray/gargle, if not improving within 4-6 weeks, will consider starting Flonase, pt acknowledged and agreed with the plan(pt will call us) Mixed hyperlipidemia - Lipid Profile with reflex to direct LDL; Future - simvastatin (ZOCOR) 40 MG tablet; Take 1 tablet by mouth at HS Hypertension nos - losartan (COZAAR) 50 MG tablet; Take 0.5 tablets by mouth daily. Need for prophylactic hormone replacement therapy (postmenopausal) - estradiol (ESTRACE) 1 MG tablet; Take 1 tablet by mouth daily. Other Orders - Cancel: PAP IMAGED THIN LAYER SCREEN Counseling: Dietary Guidelines for Americans, 2010 USDA's MyPlate regular exercise healthy diet/nutrition safe sex practices/STD prevention Advanced Planning reports that she has never smoked. She does not have any smokeless tobacco history on file. Estimated Body mass index is 33.32 kg/(m^2) as calculated from the following: Height as of this encounter: 5' 8.75(1.746 m). Weight as of this encounter: 224 lb(101.606 kg). Weight management plan: Diet regimen was discussed and plan is self-directed dieting: reduce calories, reduce portions, reduce carbs, increase fruits/vegetables and avoid sweets. Pt is on estrogen after BRISSA with BSO, for 3 years until now, will keep monitoring, and discuss in 2 years ago weaning off, pt acknowledged and agreed with the plan Miky Langford [facility] T SERVICES COORDINATOR documented in this encounter Nursing Notes 02/21/2012 10:00 AM CST >> BLANCA Foster Feb 21, 2012 10:00 AM Patient presents with: Physical - and pap Initial BP 132/80 Pulse 76 Temp(Src) 97.8 ??F (36.6 ??C) (Tympanic) Ht 5' 8.75 (1.746 m) Wt224 lb (101.606 kg) BMI 33.32 kg/m2 SpO2 99% LMP 08/07/2006 Estimated Body mass index is 33.32kg/(m^2) as calculated from the following: Height as of this encounter: 5' 8.75(1.746 m). Weight as of this encounter: 224 lb(101.606 kg).. BP completed using cuff size: large Blanca Lau MA documented in this encounter Plan of Treatment Not on filedocumented as of this encounter Visit Diagnoses Diagnosis Routine general medical examination at a health care facility - Primary Postnasal drip Mixed hyperlipidemia HYPERTENSION NOS Unspecified essential hypertension Need for prophylactic hormone replacemen t therapy (postmenopausal) documented in this encounter Care Teams Quality Control Checker Relationship Specialty Start Date End Date Dominick Shanks MD PCP - General 08/17/02 05/01/16 [place] [address] documented as of this encounter
--- OUTSIDE RECORDS SUMMARY | 2022-01-17 10:53 | XMS_ITS | Encounter Summary ---
:1965 Author Organization [facility] Address [address] [place] [address]. [place] [address] Care Team Providers Name Role Phone Dominick Shanks MD Primary Care Provider [phone] Reason for Visit Reason Comments Physical Pre Visit Planning - Done by dayplanner Blood Draw is fasting Encounter Details Date Type Department Care Team Description 01/18/2010 Office Visit [facility] Dominick Shanks woekaterina n exam with routine gynecological exam; Shea Love MD HYPERTENSION NOS; [address] [place] NO INFO FOUND Hyperlipidemia LDL goal <130 ; [place] [address] [place] Need for prophylactic hormone replacemen t therapy (postmenopausal); [phone] [place] [address] Social History Tobacco Use Types Packs/Day Years Used Date Smoking Tobacco: Never Alcohol Use Standard Drinks/Week Comments No 0 (1 standard drink = 0.6 oz pure alcoho l) Sex Assigned at Date Recorded Not on file documented as of this encounter Last Filed Vital Signs Vital Sign Reading Time Taken Comments Blood Pressure 124/80 01/18/2010 11:16 AM SEWING MACHINES SALESPERSON Pulse 64 01/18/2010 11:16 AM SEWING MACHINES SALESPERSON Temperature 36.6 ??C (97.8 ??F) 01/18/2010 11:16 AM SEWING MACHINES SALESPERSON Respiratory Rate - - Oxygen Saturation - - Inhaled Oxygen Concentration - - Weight 100.6 kg (221 lb 12.8 oz) 01/18/2010 11:16 AM SEWING MACHINES SALESPERSON Height 174.6 cm (5' 8.75) 01/18/2010 11:16 AM SEWING MACHINES SALESPERSON Body Mass Index 32.99 01/18/2010 11:16 AM SEWING MACHINES SALESPERSON documented in this encounter Progress Notes Gretchen Nath - 01/11/2010 4:51 PM CST CC: Nathalie Bowen is an 44 year old woman who presents for preventive health visit. Besides routine health maintenance, she has no other health concerns today . Healthy Habits: Do you get at least three servings of calcium containing foods daily (dairy, green leafy vegetables,etc.)? yes Outside of work or daily activities, how many days per week do you exercise for 30 minutes or longer? no Have you had an eye exam in the past two years? yes Do you see a dentist twice per year? no Staff Signature Sherri Sommer/ CAMILA PHQ-2 Over the last two weeks- Have you been bothered by little interest or pleasure in doing things? No Over the last two weeks- Have you been feeling down, depressed, or hopeless? No Abuse: Current or Past(Physical, Sexual or Emotional)- NO Do you feel safe in your environment - Yes History Substance Use Topics ??? Tobacco Use: Never ??? Alcohol Use: No The patient does not drink >3 drinks per day nor >7 drinks per week. Reviewed orders with patient. Reviewed health maintenance and updated orders accordingly - Yes Staff Signature Sherri Sommer/ CAMILA History of abnormal Pap smear: No All Histories reviewed and updated in [facility]. 01-18-10-Nathalie Bowen-Annual exam. 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 States she feels well except for painin the left lower abdomen only when her is drinking. He???s back to drinking again. She is on statin and BP med and tolerates both well. Remainder of system of review completely negative. She???s had previous hysterectomy. No hot flashes etc. Normal BP. Head and neck negative. Thyroid not palpable. Chest clear. Heart no murmur. Breasts no masses. Abdomen is negative. Pelvic good estrogen effect, well healed, adequate support. Rectal confirms no masses. Extrem and neuro negative. Labs are taken. New scripts. No bone density as yet. Recheck 1 year. NG MACHINES SALESPERSON documented in this encounter Nursing Notes 01/18/2010 10:45 AM CST >> SHERRI SOMMER Wed Jan 18, 2010 11:21 AM Patient presents with: Physical Pre Visit Planning - Done - by dayplanner Blood Draw - is fasting Initial BP 124/80 Pulse 64 Temp 97.8 ??F (36.6 ??C) Ht 5' 8.75 (1.746 m) Wt 221 lb 12.8 oz (100.608 kg) LMP 08/07/2006 Estimated Body mass index is 32.99 kg/(m^2) as calculated from the following: Height as of this encounter: 5' 8.75(1.746 m). Weight as of this encounter: 221 lb 12.8 oz(100.608 kg).. BP completed using cuff size: large. Sherri Sommer/ CAMILA documented in this encounter Plan of Treatment Not on filedocumented as of this encounter Procedures Procedure Name Priority Date/Time Associated Diagnosis Comme nts UA MACROSCOPIC WITH Routine 01/18/2010 12:14 HYPERTENSION NOS Results for this REFLEX TO MICRO PM SEWING MACHINES SALESPERSON procedure ar e in the results section. CBC WITH PLATELETS & Routine 01/18/2010 12:12 Well woman exam with Results for this DIFFERENTIAL PM SEWING MACHINES SALESPERSON routine gynecological proced ure are in exam the results section. LIPID PROFILE Routine 01/18/2010 12:12 Hyperlipidemia LDL Resu lts for this PM SEWING MACHINES SALESPERSON goal <130 procedure are i n the results section. COMPREHENSIVE Routine 01/18/2010 12:12 HYPERTENSION NOS Result s for this METABOLIC PANEL PM SEWING MACHINES SALESPERSON procedure ar e in the results section. documented in this encounter Results UA macroscopic with reflex to micro (01/18/2010 12:14 PM SEWING MACHINES SALESPERSON) [facility] Method Time Signature Color Urine Yellow MISYS Appearance Urine Clear MISYS Glucose Urine Negative NEG mg/dL MISYS Bilirubin Urine Negative NEG MISYS Ketones Urine Negative NEG mg/dL MISYS Specific [place] 1.015 1.003 - MISYS Urine 1.035 Blood Urine Negative NEG MISYS pH Urine 7.0 5.0 - 7.0 MISYS pH Protein Albumin Negative NEG mg/dL MISYS Urine Urobilinogen 0.2 0.2 - 1.0 MISYS Urine EU/dL Nitrite Urine Negative NEG MISYS Leukocyte Negative NEG MISYS Esterase Urine Source Midstream MISYS Urine Specimen Anatomical Collection Method Collection Time Receive d Time (Source) Location / / Volume Laterality Urine specimen 01/18/2010 12:14 0 (specimen) PM SEWING MACHINES SALESPERSON 12:15 PM SEWING MACHINES SALESPERSON Dominick Shanks MD LAB - URINE ORDERABLES Performing Organization Address City/State/ZIP Code Phon e Number JAN Comprehensive metabolic panel (01/18/2010 12:12 PM SEWING MACHINES SALESPERSON) P athologist Signature Sodium 140 133 - 144 [place] mmol/L [facility] Potassium 3.5 3.4 - 5.3 [place] mmol/L [facility] Chloride 106 94 - 109 [place] mmol/L [facility] Carbon Dioxide 27 20 - 32 [place] mmol/L [facility] Anion Gap 7 6 - 17 [place] mmol/L [facility] Glucose 85 60 - 99 [place] mg/dL [facility] Urea Nitrogen 11 5 - 24 [place] mg/dL [facility] Creatinine 0.74 0.52 - [place] 1.04 mg/dL [facility] Comment: New IDMS-traceable calibration beginning 06/12/07 GFR Estimate 85 >60 mL/min/1.7m2 [place] [facility] GFR Estimate If Black >90 >60 mL/min/1.7m2 [facility] Calcium 8.9 8.5 - 10.4 mg/dL [facility] Bilirubin Total 0.9 0.2 - 1.3 mg/dL [facility] Albumin 4.2 3.9 - 5.1 g/dL [facility] Protein Total 7.3 6.8 - 8.8 g/dL [facility] Alkaline Phosphatase 85 40 - 150 U/L [facility] ALT 36 0 - 50 U/L [facility] AST 23 0 - 45 U/L [facility] Specimen Anatomical Collection Method Collection Time Receive d Time (Source) Location / / Volume Laterality Blood specimen 01/18/2010 12:12 0 (specimen) PM SEWING MACHINES SALESPERSON 12:14 PM SEWING MACHINES SALESPERSON Dominick Shanks MD LAB - BLOOD ORDERABLES Performing Organization Address City/State/ZIP Code Phon e Number [facility][1] [address] [place] [address] [facility] Lipid panel (01/18/2010 12:12 PM SEWING MACHINES SALESPERSON) P athologist Signature Cholesterol 161 0 - 200 [place] mg/dL [facility] Comment: LDL Cholesterol is the primary guide to therapy. The NCEP recommends further evaluation of: patients with cholesterol <200 mg/dL if additional risk factors are present, cholesterol >240 mg/dL, triglycerides >150 mg/dL, or HDL <40 mg/dL. Triglycerides 72 0 - 150 mg/dL [facility] HDL Cholesterol 55 50 - 110 mg/dL [facility] LDL Cholesterol Calculated 92 0 - 129 mg/dL [facility] Comment: LDL Cholesterol is the primary guide to therapy: LDL-cholesterol goal in high risk patients is <100 mg/dL and in very high risk patients is <70 mg/dL. VLDL-Cholesterol 14 0 - 30 mg/dL [place] O [facility] Cholesterol/HDL Ratio 3.0 0.0 - 5.0 [facility] Specimen Anatomical Collection Method Collection Time Receive d Time (Source) Location / / Volume Laterality Blood specimen 01/18/2010 12:12 0 (specimen) PM SEWING MACHINES SALESPERSON 12:14 PM SEWING MACHINES SALESPERSON Dominick Shanks MD LAB - BLOOD ORDERABLES Performing Organization Address City/State/ZIP Code Phon e Number [facility][1] [address] [place] [address] [facility] (ABNORMAL) CBC with platelets differential (01/18/2010 12:12 PM SEWING MACHINES SALESPERSON) Patholo gist Method Time Signature WBC 6.4 4.0 - MISYS 11.0 10e9/L RBC Count 5.32 (H) 3.8 - 5.2 MISYS 10e12/L Hemoglobin 15.4 11.7 - MISYS 15.7 g/dL Hematocrit 44.9 35.0 - MISYS 47.0 % MCV 84 78 - 100 MISYS fl MCH 28.9 26.5 - MISYS 33.0 pg MCHC 34.3 31.5 - MISYS 36.5 g/dL RDW 13.2 10.0 - MISYS 15.0 % Platelet Count 231 150 - 450 [place]IS[place] 10e9/L Diff Method Automated MISYS Method % Neutrophils 51 40 - 75 % MISYS % Lymphocytes 37 20 - 48 % MISYS % Monocytes 9 0 - 12 % MISYS % Eosinophils 2 0 - 6 % MISYS % Basophils 1 0 - 2 % MISYS Absolute 3.3 1.6 - 8.3 MISYS Neutrophil 10e9/L Absolute 2.4 0.8 - 5.3 MISYS Lymphocytes 10e9/L Absolute 0.6 0.0 - 1.3 MISYS Monocytes 10e9/L Absolute 0.1 0.0 - 0.7 MISYS Eosinophils 10e9/L Absolute 0.0 0.0 - 0.2 MISYS Basophils 10e9/L Specimen Anatomical Collection Method Collection Time Receive d Time (Source) Location / / Volume Laterality Blood specimen 01/18/2010 12:12 0 (specimen) PM SEWING MACHINES SALESPERSON 12:14 PM SEWING MACHINES SALESPERSON Dominick Shanks MD LAB - BLOOD ORDERABLES Performing Organization Address City/State/ZIP Code Phon e Number MISYS documented in this encounter Visit Diagnoses Diagnosis Well woman exam with routine gynecologic al exam Routine gynecological examination HYPERTENSION NOS Unspecified essential hypertension Hyperlipidemia LDL goal <130 Other and unspecified hyperlipidemia Need for prophylactic hormone replacemen t therapy (postmenopausal) Mixed hyperlipidemia documented in this encounter Care Teams Transportation Sales Consultant Relationship Specialty Start Date End Date Dominick Shanks MD PCP - General 08/17/02 05/01/16 [place] [address] documented as of this encounter
--- OUTSIDE RECORDS SUMMARY | 2022-01-17 10:54 | XMS_ITS | Encounter Summary ---
:1965 Author Organization [facility] Address [address] [place] [address]. [place] [address] Care Team Providers Name Role Phone Dominick Shanks MD Primary Care Provider [phone] Reason for Visit Reason Onset Date Comments Other 07/24/2006 Dr Morales Encounter Details Date Type Department Care Team Description 07/24/2006 Telephone [facility] Dominick Castro Other (Dr Morales) [facility] [place] [address] [place] NO INFO FOUND [phone] [place] [address] (Wo rk) Social History Tobacco Use Types Packs/Day Years Used Date Smoking Tobacco: Never Alcohol Use Standard Drinks/Week Comments No 0 (1 standard drink = 0.6 oz pure alcoho l) Sex Assigned at Date Recorded Not on file documented as of this encounter Miscellaneous Notes Telephone Encounter - Zakia Shanks - 07/24/2006 8:11 AM CDT Office notes of 07/15/[address] Morales. documented in this encounter Plan of Treatment Not on filedocumented as of this encounter Visit Diagnoses Not on filedocumented in this encounter Care Teams Product Info Specialist Relationship Specialty Start Date End Date Dominick Shanks MD PCP - General 7/7/03 3/21/17 [place] [address] documented as of this encounter
--- OUTSIDE RECORDS SUMMARY | 2022-01-17 10:54 | XMS_ITS | Encounter Summary ---
:1965 Author Organization [facility] Address [address] [place] [address]. [place] [address] Care Team Providers Name Role Phone Dominick Shanks MD Primary Care Provider [phone] Encounter Details Date Type Department Care Team Description 04/09/2006 Orders Only [facility] Dominick Shanks DIAGNOSIS NOT YET Shea Love MD DEFINED (Primary Dx) [address] [facility] XXX NO INFO FOUND [place] [address] [place] [phone] [place] [address] Social History Tobacco Use Types Packs/Day Years Used Date Smoking Tobacco: Never Alcohol Use Standard Drinks/Week Comments No 0 (1 standard drink = 0.6 oz pure alcoho l) Sex Assigned at Date Recorded Not on file documented as of this encounter Plan of Treatment Not on filedocumented as of this encounter Procedures Procedure Name Priority Date/Time Associated Diagnosis Comme nts CL AFF SURGICAL PATHOLOGY Routine 11/02/2005 DIAGNOSIS NOT Y ET DEFINED documented in this encounter Results SURGICAL PATHOLOGY (11/02/2005) Specimen (Source) Anatomical Location Collection Method / Collectio n Time Received Time / Laterality Volume 11/02/2005 Narrative This result has an attachment that is no t available. Dominick Shanks MD LABORATORY documented in this encounter Visit Diagnoses Diagnosis DIAGNOSIS NOT YET DEFINED - Primary documented in this encounter Care Teams Line Construction Superintendent Relationship Specialty Start Date End Date Dominick Shanks MD PCP - General 7/7/03 3/21/17 [place] [address] documented as of this encounter
--- OUTSIDE RECORDS SUMMARY | 2022-01-17 10:54 | XMS_ITS | Encounter Summary ---
:1965 Author Organization [facility] Address [address] [place] [address]. [place] [address] Care Team Providers Name Role Phone Dominick Shanks MD Primary Care Provider [phone] Reason for Visit Reason Onset Date Comments Medication Request 10/11/2008 Simvastatin Encounter Details Date Type Department Care Team Description 10/11/2008 Telephone [facility] Dominick Shanks Medicatio n Request Shea Love MD (Simvastatin) [address] [facility] XXX NO INFO FOUND [place] [address] XXX [phone] [place] [address] (Wo rk) Social History Tobacco Use Types Packs/Day Years Used Date Smoking Tobacco: Never Alcohol Use Standard Drinks/Week Comments No 0 (1 standard drink = 0.6 oz pure alcoho l) Sex Assigned at Date Recorded Not on file documented as of this encounter Miscellaneous Notes Telephone Encounter - Gretchen Nath - 10/12/2008 2:41 PM CDT Pt called stating that her insurance no longer covered the Crestor and it is too expensive. Rx changed and called to the pharmacy. Gretchen Jordan documented in this encounter Plan of Treatment Not on filedocumented as of this encounter Visit Diagnoses Diagnosis Mixed hyperlipidemia - Primary documented in this encounter Care Teams Proj Mgr Relationship Specialty Start Date End Date Dominick Shanks MD PCP - General 08/17/02 05/01/16 [place] [address] documented as of this encounter
--- OUTSIDE RECORDS SUMMARY | 2022-01-17 10:54 | XMS_ITS | Encounter Summary ---
:1965 Author Organization [place] Address [address] [place] [address]. [place] [address] Care Team Providers Name Role Phone Dominick Shanks MD Primary Care Provider [phone] Reason for Visit Reason Comments Derm Problem spots on back Recheck Medication Encounter Details Date Type Department Care Team Description 03/08/2006 Office Visit [facility] Dominick Shanks HERPES ZO STER NOS; Shea Love MD HYPERTENSION NOS; [address] [place] [facility] XXX NO INFO FOUND MIXED HYPERLIPIDEMIA [place] [address] XXX [phone] XXX [place] [address] Social History Tobacco Use Types Packs/Day Years Used Date Smoking Tobacco: Never Alcohol Use Standard Drinks/Week Comments No 0 (1 standard drink = 0.6 oz pure alcoho l) Sex Assigned at Date Recorded Not on file documented as of this encounter Last Filed Vital Signs Vital Sign Reading Time Taken Comments Blood Pressure 120/70 03/08/2006 10:30 AM CURRICULUM DIRECTOR Pulse - - Temperature 36.7 ??C (98 ??F) 03/08/2006 10:30 AM CURRICULUM DIRECTOR Respiratory Rate - - Oxygen Saturation - - Inhaled Oxygen Concentration - - Weight 100.9 kg (222 lb 6.4 oz) 03/08/2006 10:30 AM CURRICULUM DIRECTOR Height - - Body Mass Index 32.84 02/08/2006 11:00 AM CURRICULUM DIRECTOR documented in this encounter Progress Notes Rosenda Rodriguez - 04/08/2006 9:07 AM CST 03-08-06-Nathalie Bowen-Followup. Concerned about possible med reaction. She has some sore spots on her back that have started since being on Lisinopril and Crestor. On exam, she has typical shingles rash. Definitely not for medication. BP is excellent. Famvir and Prednisone. Also, a new script for Lisinopril. Question of taking Crestor 10 mg. for her hyperlipidemia. There is a strong family history of reaction to statins. She will give this a try however. ICULUM DIRECTOR documented in this encounter Nursing Notes 03/08/2006 10:30 AM CST >> SHERRI OSMMER 03/08/2006 10:57 am Nathalie Bowen presents for check spots on back and med recheck. Initial BP 120/70 Temp 98 Wt 222 lbs 6.4 oz (100.9kg) Estimated Body mass index is 32.83 kg/(m^2) as calculated from: Height of 5' 9 (1.753 m) as of 02/08/06 Weight of 222 lbs 6.4 oz (100.880 kg) as of this encounter. BP completed using cuff size: large. Sherri Sommer/ CAMILA documented in this encounter Plan of Treatment Not on filedocumented as of this encounter Visit Diagnoses Diagnosis Herpes zoster without mention of complic ation Unspecified essential hypertension Mixed hyperlipidemia documented in this encounter Care Teams Threading Machine Tender Relationship Specialty Start Date End Date Dominick hSanks MD PCP - General 08/17/02 05/01/16 [place] [address] documented as of this encounter
--- OUTSIDE RECORDS SUMMARY | 2022-01-17 10:54 | XMS_ITS | Encounter Summary ---
:1965 Author Organization [place] Address [address] [place] [address]. [place] [address] Care Team Providers Name Role Phone Dominick Shanks MD Primary Care Provider [phone] Reason for Visit Reason Comments Hypertension Recheck Medication Cough Encounter Details Date Type Department Care Team Description 06/22/2006 Office Visit [facility] Dominick Shanks ADV EFF M ED/BIOL SUB NOS; Shea Love MD COUGH; [address] [facility] [place] XXX NO INFO FOUND HYPERTENSION NOS [place] [address] XXX [phone] [place] [address] Social History Tobacco Use Types Packs/Day Years Used Date Smoking Tobacco: Never Alcohol Use Standard Drinks/Week Comments No 0 (1 standard drink = 0.6 oz pure alcoho l) Sex Assigned at Date Recorded Not on file documented as of this encounter Last Filed Vital Signs Vital Sign Reading Time Taken Comments Blood Pressure 118/76 06/22/2006 10:00 AM CDT Pulse - - Temperature 37 ??C (98.6 ??F) 06/22/2006 10:00 AM CDT Respiratory Rate - - Oxygen Saturation - - Inhaled Oxygen Concentration - - Weight 101.6 kg (224 lb) 06/22/2006 10:00 AM CDT Height 175.3 cm (5' 9) 06/22/2006 10:00 AM CDT Body Mass Index 33.08 06/22/2006 10:00 AM CDT documented in this encounter Progress Notes Rosenda Rodriguez - 06/25/2006 3:31 PM CDT 06-22-06-Nathalie Bowen-She has developed a cough. Definitely has started since she has been on Lisinopril. No other obvious reason. Afebrile. Vitals are stable. BP is excellent. Chest clear. Heart, reg. Will stop the Lisinopril x 2 weeks. If cough is gone, then she will start Cozaar 50 mg. 1 daily for a trial. She is given one month samples. documented in this encounter Nursing Notes 06/22/2006 10:00 AM CDT >> LAURA MOSES 06/22/2006 10:25 am Nathalie Bowen presents for cough ??? From lisinopril. Initial BP 118/76 Temp 98.6 Ht 5' 9 (1.75m) Wt 224 lbs (101.6kg) Body mass index is 33.06 kg/(m^2).. BP completed using cuff size: bella Moses LPN documented in this encounter Plan of Treatment Not on filedocumented as of this encounter Visit Diagnoses Diagnosis Unspecified adverse effect of unspecifie d drug, medicinal and biological substance Cough Unspecified essential hypertension documented in this encounter Care Teams Abrasive Water Jet Cutter Operator Relationship Specialty Start Date End Date Dominick Shanks MD PCP - General 08/17/02 05/01/16 [place] [address] documented as of this encounter
--- OUTSIDE RECORDS SUMMARY | 2022-01-17 10:54 | XMS_ITS | Encounter Summary ---
:1965 Author Organization [place] Address [address] [place] [address]. [place] [address] Care Team Providers Name Role Phone Dominick Shanks MD Primary Care Provider [phone] Reason for Visit Reason Onset Date Comments Refill Request 09/17/2006 crestor Encounter Details Date Type Department Care Team Description 09/17/2006 Refill [facility] Dominick Castro Refill Request (crestor) [address] [facility] [place] [address] XXX NO INFO FOUND [phone] [place] [address] (Wo rk) Social History Tobacco Use Types Packs/Day Years Used Date Smoking Tobacco: Never Alcohol Use Standard Drinks/Week Comments No 0 (1 standard drink = 0.6 oz pure alcoho l) Sex Assigned at Date Recorded Not on file documented as of this encounter Miscellaneous Notes Telephone Encounter - Hiral Conley - 09/17/2006 1:56 PM CDT rx faxed to pharmacy to Hiral Conley RN documented in this encounter Plan of Treatment Not on filedocumented as of this encounter Visit Diagnoses Diagnosis Mixed hyperlipidemia - Primary documented in this encounter Care Teams Target Protection Specialist Relationship Specialty Start Date End Date Dominick Shanks MD PCP - General 08/17/02 05/01/16 [place] [address] documented as of this encounter
--- OUTSIDE RECORDS SUMMARY | 2022-01-17 10:54 | XMS_ITS | Encounter Summary ---
:1965 Author Organization [place] Address [address] [place] [address]. [place] [address] Care Team Providers Name Role Phone Dominick Shanks MD Primary Care Provider [phone] Encounter Details Date Type Department Care Team Description 10/10/2006 Medical Correspondence [facility] Dominick Shanks Hospital discharge Shea Love MD medications [address] [place] [address] FOUND XXX [place] [address] XXX [phone] [place] [address] Social History Tobacco Use Types Packs/Day Years Used Date Smoking Tobacco: Never Alcohol Use Standard Drinks/Week Comments No 0 (1 standard drink = 0.6 oz pure alcoho l) Sex Assigned at Date Recorded Not on file documented as of this encounter Plan of Treatment Not on filedocumented as of this encounter Visit Diagnoses Not on filedocumented in this encounter Care Teams Shipper Receiver Relationship Specialty Start Date End Date Dominick Shanks MD PCP - General 08/17/02 05/01/16 XXX NO INFO FOUND XXX [place] [address] documented as of this encounter
--- OUTSIDE RECORDS SUMMARY | 2022-01-17 10:54 | XMS_ITS | Encounter Summary ---
:1965 Author Organization [place] Address [address] [place] [address]. [place] [address] Care Team Providers Name Role Phone Dominick Shanks MD Primary Care Provider Encounter Details Date Type Department Care Team Description 10/10/2006 Orders Only [facility] Dominick Shanks SCREENING MAMM-MAILG Shea Love MD NEOPL NEC [address] [facility] XXX NO INFO FOUND [place] [address] XXX [phone] [place] [address] Social History Tobacco Use Types Packs/Day Years Used Date Smoking Tobacco: Never Alcohol Use Standard Drinks/Week Comments No 0 (1 standard drink = 0.6 oz pure alcoho l) Sex Assigned at Date Recorded Not on file documented as of this encounter Plan of Treatment Not on filedocumented as of this encounter Procedures Procedure Name Priority Date/Time Associated Diagnosis Comme nts MAMMOGRAM, SCREENING Routine 10/04/2006 Screening Mamm-Ma ilg Neopl BILATERAL Nec documented in this encounter Results MAMMOGRAM, SCREENING (10/04/2006) Anatomical Region Laterality Modality Other Narrative This result has an attachment that is no t available. Dominick Shanks MD SPECIAL IMAGING STUDIES documented in this encounter Visit Diagnoses Diagnosis Other screening mammogram documented in this encounter Care Teams Hot Top Liner Helper Relationship Specialty Start Date End Date Dominick Shanks MD PCP - General 08/17/02 05/01/16 XXX NO INFO FOUND XXX [place] [id number] documented as of this encounter
--- OUTSIDE RECORDS SUMMARY | 2022-01-17 10:54 | XMS_ITS | Encounter Summary ---
:1965 Author Organization [place] Address [address] [place] [address]. [place] [address] Care Team Providers Name Role Phone Dominick Shanks MD Primary Care Provider [phone] Reason for Visit Reason Comments Employment Physical dot Encounter Details Date Type Department Care Team Description 08/13/2007 Office Visit [facility] Dominick Shanks Vacc for Viral Hepatitis (Primary Dx); Shea Love MD Mixed Hyperlipidemia; [address] [facility] XXX NO INFO FOUND Health Examination of Define d Subpopulation [place] [address] XXX [phone] XXX [place] [address] Social History Tobacco Use Types Packs/Day Years Used Date Smoking Tobacco: Never Alcohol Use Standard Drinks/Week Comments No 0 (1 standard drink = 0.6 oz pure alcoho l) Sex Assigned at Date Recorded Not on file documented as of this encounter Last Filed Vital Signs Vital Sign Reading Time Taken Comments Blood Pressure 130/80 08/13/2007 10:15 AM CDT Pulse - - Temperature 36.3 ??C (97.3 ??F) 08/13/2007 10:15 AM CDT Respiratory Rate - - Oxygen Saturation - - Inhaled Oxygen Concentration - - Weight 104.3 kg (230 lb) 08/13/2007 10:15 AM CDT Height 177.8 cm (5' 10) 08/13/2007 10:15 AM CDT Body Mass Index 33 08/13/2007 10:15 AM CDT documented in this encounter Progress Notes Rosenda Rodriguez - 08/26/2007 11:17 AM CDT 08-13-07-Nathalie 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 Staying very busy. finally has a job and this is making her very happy. Her DOT exam is unremarkable. Form is completed. No driving restrictions. To have PE this winter. Will repeat lab at that time. She had studies done on prior to this exam. Her lipids were excellent. documented in this encounter Nursing Notes 08/13/2007 10:15 AM CDT >> RACHEL SEEBINGER [facility] Aug 13, 2007 11:01 AM Hep B given today. Pt thought she'd never had it before. I did not see it on imm. Report until aftreI gave it. Reported this to pt, Dr. Shanks and Elinor Valdezand Hiral Yap Lot is [id number] and exp. Is 6-10. Rachel Seebinger R.N. >> RACHEL SEEBINGER Wed Aug 13, 2007 10:42 AM Nathalie Allredton presents for Patient presents with: Employment Physical - dot. [employer] 20/20, . Initial BP 130/80 Temp (Src) 97.3 ??F (36.3 ??C) (Tympanic) Ht 5' 10 (1.778 m) Wt 230 lb (104.327 kg) LMP Hysterectomy Body mass index is 33.00 kg/(m^2).. BP completed using cuff size: large Rachel Seebinger R.N. documented in this encounter Plan of Treatment Not on filedocumented as of this encounter Visit Diagnoses Diagnosis Need for prophylactic vaccination and in oculation against viral hepatitis - Primary Mixed hyperlipidemia Health examination of defined subpopulat ion documented in this encounter Care Teams Pst Specialist Relationship Specialty Start Date End Date Dominick Shanks MD PCP - General 08/17/02 05/01/16 [place] [address] documented as of this encounter
--- OUTSIDE RECORDS SUMMARY | 2022-01-17 10:54 | XMS_ITS | Encounter Summary ---
:1965 Author Organization [place] Address [address] [place] [address]. [place] [address] Care Team Providers Name Role Phone Dominick Shanks MD Primary Care Provider [phone] Reason for Visit Reason Onset Date Comments Refill Request 04/04/2006 crestor Encounter Details Date Type Department Care Team Description 04/04/2006 Refill [facility] Dominick Castro Refill Request (crestor) 14[address] [facility] [place] [address] XXX NO INFO FOUND [phone] [place] [address] (Wo rk) Social History Tobacco Use Types Packs/Day Years Used Date Smoking Tobacco: Never Alcohol Use Standard Drinks/Week Comments No 0 (1 standard drink = 0.6 oz pure alcoho l) Sex Assigned at Date Recorded Not on file documented as of this encounter Miscellaneous Notes Telephone Encounter - Blanca Lau - 04/04/2006 1:56 PM CST Called in to pt. pharmacy. Balnca Lau CMA DHOUSE WORKER documented in this encounter Plan of Treatment Not on filedocumented as of this encounter Visit Diagnoses Not on filedocumented in this encounter Care Teams Cylinder Valve Repairer Relationship Specialty Start Date End Date Dominick Shanks MD PCP - General 08/17/02 05/01/16 [place] [address] documented as of this encounter
--- OUTSIDE RECORDS SUMMARY | 2022-01-17 10:54 | XMS_ITS | Encounter Summary ---
:1965 Author Organization [place] Address [address] [place] [address]. [place] [address] Care Team Providers Name Role Phone Dominick Shanks MD Primary Care Provider [phone] Encounter Details Date Type Department Care Team Description 12/20/2006 Orders Only [facility] Dominick Shanks MIXED HYP ERLIPIDEMIA; Shea Love MD HYPERTENSION NOS; [address] [facility] XXX NO INFO FOUND EXCESSIVE MENSTRUATION [place] [address] XXX [phone] [place] [address] Social History Tobacco Use Types Packs/Day Years Used Date Smoking Tobacco: Never Alcohol Use Standard Drinks/Week Comments No 0 (1 standard drink = 0.6 oz pure alcoho l) Sex Assigned at Date Recorded Not on file documented as of this encounter Plan of Treatment Not on filedocumented as of this encounter Visit Diagnoses Diagnosis Mixed hyperlipidemia Unspecified essential hypertension Excessive or frequent menstruation documented in this encounter Care Teams White Washer Relationship Specialty Start Date End Date Dominick Shanks MD PCP - General 08/17/02 05/01/16 XXX NO INFO FOUND XXX [place] [address] documented as of this encounter
--- OUTSIDE RECORDS SUMMARY | 2022-01-17 10:54 | XMS_ITS | Encounter Summary ---
:1965 Author Organization [place] Address [address] [place] [address]. [place] [address] Care Team Providers Name Role Phone Dominick Shanks MD Primary Care Provider [phone] Reason for Visit Reason Comments Pre-Op Exam vag hyster 08-19-06 Encounter Details Date Type Department Care Team Description 08/13/2006 Office Visit [facility] Dominick Shanks PREOP EXA M OTHER SPECIFIED (Primary Dx); Shea Love MD EXCESSIVE MENSTRUATION; [address] [place] XXX NO INFO FOUND SCREENING MAMM-MAILG NEOPL N EC [place] [address] XXX [phone] XXX [place] [address] Social History Tobacco Use Types Packs/Day Years Used Date Smoking Tobacco: Never Alcohol Use Standard Drinks/Week Comments No 0 (1 standard drink = 0.6 oz pure alcoho l) Sex Assigned at Date Recorded Not on file documented as of this encounter Last Filed Vital Signs Vital Sign Reading Time Taken Comments Blood Pressure 114/80 08/13/2006 10:45 AM CDT Pulse 80 08/13/2006 10:45 AM CDT Temperature 36.5 ??C (97.7 ??F) 08/13/2006 10:45 AM CDT Respiratory Rate 18 08/13/2006 10:45 AM CDT Oxygen Saturation - - Inhaled Oxygen Concentration - - Weight 104.8 kg (231 lb) 08/13/2006 10:45 AM CDT Height 175.3 cm (5' 9) 08/13/2006 10:45 AM CDT Body Mass Index 34.11 08/13/2006 10:45 AM CDT documented in this encounter Progress Notes Harriet May - 09/06/2006 2:19 PM CDT Addended by: HARRIET MAY on: 09/06/2006 2:19:25 PM Modules accepted: Orders Rosenda Rodriguez - 09/05/2006 1:19 PM CDT 08-13-06-Jay Bowen-Pre-op. She is going to have hysterectomy for hypermenorrhea that has been unresponsive to medication and D&C. No contraindications to surgery per exam or labs. Patient understands procedure. Rachel Weber - 08/13/2006 11:25 AM CDT HPI: hypermenorrhea unresponsive to D&C and hormone Patient Active Problem List Diagnoses Date Noted ??? EXCESSIVE MENSTRUATION [626.2] 02/14/2006 ??? HYPERTENSION NOS [401.9] 02/14/2006 ??? MIXED HYPERLIPIDEMIA [272.2] 01/16/2005 ??? FAMILY HX BREAST MALIG [V16.3] 01/16/2005 No past medical history on file. Past Surgical History Procedure Date ??? Surgical history of - s/p Childbirth x4, AB x2 ??? Surgical history of - Lapar Tubal fulgaration, resection ??? Surgical history of - 08/12 Excision Lt axillary mole ??? Surgical history of - 08/13 Excision Lt arm lesion ??? Surgical history of - 11/02/05 D&C ,benign Current outpatient prescriptions Medication Sig ??? COZAAR 50 MG OR TABS ONE DAILY ??? CRESTOR 10 MG OR TABS ONE DAILY ??? MULTI-VITAMIN OR TABS one daily OTC products: no recent use of OTC ASA, NSAIDS or Steroids Allergies Allergen Reactions ??? No Known Drug Allergies Latex Allergy: NO History Substance Use Topics ??? Tobacco Use: Never ??? Alcohol Use: No History Drug Use No REVIEW OF SYSTEMS: C: NEGATIVE for fever, chills, change in weight E/M: NEGATIVE for ear, mouth and throat problems R: NEGATIVE for significant cough or SOB CV: NEGATIVE for chest pain, palpitations or peripheral edema MUSCULOSKELETAL: NEGATIVE for significant arthralgias or myalgia NEURO: NEGATIVE for weakness, dizziness or paresthesias EXAM: BP 114/80 Pulse 80 Temp (Src) 97.7 (Tympanic) Resp 18 Ht 5' 9 (1.75m) Wt 231 lbs (104.8kg) LMP 08/07/2006 GENERAL APPEARANCE: healthy, alert and no distress HENT: ear canals and TM's normal and nose and mouth without ulcers or lesions RESP: lungs clear to auscultation - no rales, rhonchi or wheezes CV: regular rates and rhythm, normal S1 S2, no S3 or S4 and no murmur, click or rub ABDOMEN: soft, nontender, no HSM or masses and bowel sounds normal MS: extremities normal- no gross deformities noted NEURO: Normal strength and tone, sensory exam grossly normal, mentation intact and speech normal DIAGNOSTICS: attached IMPRESSION: Reason for surgery/procedure: excessive menses that did not improve with hormone or following a D&C For above listed surgery and anesthesia: Patient is at LOW risk for surgery/procedure and perioperative/procedure complications. RECOMMENDATIONS: Approval given to proceed with proposed procedure, without further diagnostic evaluation. Signed Electronically by: Dominick Shanks MD Copy of this evaluation report is provided to requesting physician. PRE-OP EVALUATION: Today's date: 08/13/2006 Nathalie Bowen (: 1965) presents for pre-operative evaluation as requested by Dr. Morales. She requires evaluation and anesthesia clearance prior to undergoing surgery/procedure for treatment of vag bleeding . Proposed procedure: vaginal hysterectomy Date of Surgery/ Procedure: 08-19-06 Time of Surgery/ Procedure: 7:30am Hospital/Surgical Facility: [facility] Fax number for surgical facility: on fax machine Primary Physician: Nhi Shanks Type of Anesthesia Anticipated: Spinal History of anesthesia complications: NONE History of abnormal bleeding: YES: Personal HX vaginal bleeding History of blood tranfusions: NO Patient has a Health Care Directive or Living Will: NO PREOP QUESTIONNAIRE 1- NO - Do you ever have any pain or discomfort in your chest? 2- NO - Have you ever had a severe pain across the front of your chest lasting for half an hour or more? 3- NO - Do you have swelling in your feet or ankles at times? 4- NO - Are you troubled by shortness of breath when: walking on the level/ up a slight hill/ at night? 5- NO - Does your chest ever sound wheezy or whistling? 6- NO - Do you currently have a cold, bronchitis or other respiratory infection? 7- NO - Have you had a cold, bronchitis or other respiratory infection within the last 2 weeks? 8- NO - Do you usually have a cough? 9- NO - Do you sometimes get pains in the calves of your legs when you walk? 10-NO - Do you or anyone in your family have previous history of blood clots? 11-NO - Do you or does anyone in your family have serious bleeding problem such as prolonged bleeding following surgeries or cuts? 12-NO - Have you ever had problems with anemia or been told to take iron pills? 13-YES, vag bleeding - Have you had any abnormal blood loss such as black, tarry or bloody stools, or abnormal vaginal bleeding? 14-NO - Have you or any of your relatives ever had problems with anesthesia? 15-NO - Do you snore or stop breathing at night? 16-NO - Do you have any prosthetic heart valves or joints? 17-NO - Is there any chance that you may be ? documented in this encounter Nursing Notes 08/13/2006 10:45 AM CDT >> RACHEL WEBER 08/13/2006 11:25 am Nathalie Bowen presents for preop. Initial BP 114/80 Pulse 80 Temp (Src) 97.7 (Tympanic) Resp 18 Ht 5' 9 (1.75m) Wt 231 lbs (104.8kg) LMP 08/07/2006 Body mass index is 34.10 kg/(m^2).. BP completed using cuff size: bella Weber R.N. documented in this encounter Plan of Treatment Not on filedocumented as of this encounter Procedures Procedure Name Priority Date/Time Associated Comments Diagnosis HCL HEMOGLOBIN Routine 08/13/2006 11:07 AM Preop Exam Other Re sults for this NONLAB CDT Specified procedure are i n the results section. HCL POTASSIUM Routine 08/13/2006 11:07 AM Preop Exam Other Res ults for this CDT Specified procedure are i n the results section. documented in this encounter Results POTASSIUM (08/13/2006 11:07 AM CDT) athologist Signature Potassium 3.9 3.4 - 5.3 [facility] mmol/L CLINIC LAB Specimen Anatomical Collection Method Collection Time Receive d Time (Source) Location / / Volume Laterality 08/13/2006 11:07 08/13/2006 AM CDT 11:14 AM CDT Dominick Shanks MD LABORATORY Performing Organization Address City/[facility]/ZIP Code Phon e Number [facility] [address] [place] [address] [facility] (08/13/2006 11:07 AM CDT) athologist Signature Hemoglobin 15.3 11.7 - 15.7 [facility] g/dL Specimen Anatomical Collection Method Collection Time Receive d Time (Source) Location / / Volume Laterality 08/13/2006 11:07 08/13/2006 AM CDT 11:14 AM CDT Dominick Shanks MD LABORATORY Performing Organization Address City/[facility] Phon e Number [facility] documented in this encounter Visit Diagnoses Diagnosis Other specified pre-operative examinatio n - Primary Excessive or frequent menstruation Other screening mammogram documented in this encounter Care Teams Steam Cleaning Machine Operator Relationship Specialty Start Date End Date Dominick Shanks MD PCP - General 08/17/02 05/01/16 XXX [place] [address] documented as of this encounter
--- OUTSIDE RECORDS SUMMARY | 2022-01-17 10:54 | XMS_ITS | Encounter Summary ---
:1965 Author Organization [facility] Address [address] [place] [address]. [place] [address] Care Team Providers Name Role Phone Dominick Shanks MD Primary Care Provider [phone] Reason for Visit Reason Comments Blood Draw Encounter Details Date Type Department Care Team Description 08/09/2007 Orders Only [facility] Rosi ska Mixed Hyperlipidemia; 1447 [facility] HYPERTENSION NOS [place] [id number] Social History Tobacco Use Types Packs/Day Years Used Date Smoking Tobacco: Never Alcohol Use Standard Drinks/Week Comments No 0 (1 standard drink = 0.6 oz pure alcoho l) Sex Assigned at Date Recorded Not on file documented as of this encounter Plan of Treatment Not on filedocumented as of this encounter Procedures Procedure Name Priority Date/Time Associated Diagnosis Comme nts CL AFF CBC WITH Routine 08/09/2007 10:17 Mixed Hyperlipi demia Results for this PLATELETS AM CDT HYPERTENSION NOS procedure a re in the results section. HCL COMPREHENSIVE Routine 08/09/2007 10:17 Mixed Hyperli pidemia Results for this METABOLIC PANEL AM CDT HYPERTENSION NOS procedur e are in the results section. CL AFF A.M.A. LIPID Routine 08/09/2007 10:17 Mixed Hyperlipide perlita Results for this PANEL AM CDT procedure are i n the results section. documented in this encounter Results (ABNORMAL) CBC WITH PLATELETS (08/09/2007 10:17 AM CDT) Analysis Performed At Patho logist Time Signature WBC 6.4 4.0 - 11.0 [place] 10e9/L RBC Count 5.44 (H) 3.8 - 5.2 [facility] 10e12/L Hemoglobin 15.8 (H) 11.7 - [facility] 15.7 g/dL Hematocrit 46.1 35.0 - [facility] 47.0 % MCV 85 78 - 100 [place] fl MCH 29.0 26.5 - [facility] 33.0 pg MCHC 34.3 31.5 - [facility] 36.5 g/dL RDW 13.6 10.0 - [facility] 15.0 % Platelet Count 276 150 - 450 [facility] 10e9/L Specimen Anatomical Collection Method Collection Time Receive d Time (Source) Location / / Volume Laterality 08/09/2007 10:17 08/09/2007 AM CDT 10:24 AM CDT Dominick Shanks MD LABORATORY Performing Organization Address City/State/ZIP Code Phon e Number [place] A.M.A. LIPID PANEL (08/09/2007 10:17 AM CDT) athologist Signature Cholesterol 176 0 - 200 [place] mg/dL [facility] Comment: LDL Cholesterol is the primary guide to therapy: LDL-cholesterol goal in high risk patients is <100 mg/dL and in very high risk patients is <70 mg/dL. The NCEP recommends further evaluation of: patients with cholesterol <200 mg/dL if additional risk factors are present, cholesterol >240 mg/dL, triglycerides >150 mg/dL, or HDL <40 mg/dL. Triglycerides 101 0 - 150 mg/dL [facility] HDL Cholesterol 55 50 - 110 mg/dL [facility] LDL Cholesterol Calculated 101 0 - 129 mg/dL [facility] VLDL-Cholesterol 20 0 - 30 mg/dL [place] [facility] Cholesterol/HDL Ratio 3.2 0.0 - 5.0 [facility] Specimen Anatomical Collection Method Collection Time Receive d Time (Source) Location / / Volume Laterality 08/09/2007 10:17 08/09/2007 AM CDT 10:24 AM CDT Dominick Shanks MD LABORATORY Performing Organization Address City/State/ZIP Code Phon e Number [facility] [address] [place] [address] [facility] A.M.A. COMPREHENSIVE MET.PANEL (08/09/2007 10:17 AM CDT) P athologist Signature Sodium 144 133 - 144 [place] mmol/L [facility] Potassium 4.2 3.4 - 5.3 [place] mmol/L [facility] Chloride 109 94 - 109 [place] mmol/L [facility] Carbon Dioxide 26 20 - 32 [place] mmol/L [facility] Anion Gap 10 6 - 17 [place] mmol/L [facility] Glucose 89 60 - 99 [place] mg/dL [facility] Urea Nitrogen 13 5 - 24 [place] mg/dL [facility] Creatinine 0.73 0.52 [facility] 1.04 mg/dL [facility] Comment: New IDMS-traceable calibration beginning 06/12/07 GFR Estimate 88 >60 mL/min/1.7m2 [place] [facility] GFR Estimate If Black >90 >60 mL/min/1.7m2 [facility] Calcium 9.1 8.5 - 10.4 mg/dL [facility] Bilirubin Total 0.8 0.2 - 1.3 mg/dL [facility] Albumin 4.4 3.3 - 4.6 g/dL [facility] Protein Total 7.6 6.8 - 8.8 g/dL [facility]3] LAB Comment: As of 07, reference range reflects plasma specimen type. Alkaline Phosphatase 84 40 - 150 U/L [facility] ALT 27 0 - 50 U/L [facility] AST 30 0 - 45 U/L [facility] Specimen Anatomical Collection Method Collection Time Receive d Time (Source) Location / / Volume Laterality 08/09/2007 10:17 08/09/2007 AM CDT 10:24 AM CDT Dominick Shanks MD LABORATORY Performing Organization Address City/State/ZIP Code Phon e Number [facility] [address] [place] [address] [facility] documented in this encounter Visit Diagnoses Diagnosis Mixed hyperlipidemia HYPERTENSION NOS Unspecified essential hypertension documented in this encounter Care Teams Wind Turbine Service Technician Relationship Specialty Start Date End Date Dominick Shanks MD PCP - General 08/17/02 05/01/16 [place] [address] documented as of this encounter
--- OUTSIDE RECORDS SUMMARY | 2022-01-17 10:54 | XMS_ITS | Encounter Summary ---
:1965 Author Organization [place] Address [address] [place] [address]. [place] [address] Care Team Providers Name Role Phone Dominick Shanks MD Primary Care Provider [phone] Reason for Visit Reason Comments Blood Draw Encounter Details Date Type Department Care Team Description 12/21/2006 Orders Only [facility] HYPERTENSION NOS; 1447 [facility] MIXED HYPERLIPIDEMIA; [place] [address] EXCESSIVE MENSTRUATION [phone] Social History Tobacco Use Types Packs/Day Years [...] Comme nts CL AFF CBC WITH Routine 12/21/2006 8:57 Excessive Menstruation Results for this PLATELETS AM OPERATING TABLE ASSEMBLER procedure are i n the results section. HCL COMPREHENSIVE Routine 12/21/2006 8:57 Hypertension Nos Res ults for this METABOLIC PANEL AM OPERATING TABLE ASSEMBLER procedure ar e in the results section. CL AFF A.M.A. LIPID Routine 12/21/2006 8:57 Mixed Hyperlipidem ia Results for this PANEL AM OPERATING TABLE ASSEMBLER procedure are i n the results section. documented in this encounter Results (ABNORMAL) CBC WITH PLATELETS (12/21/2006 8:57 AM OPERATING TABLE ASSEMBLER) Analysis Performed At Patho logist Time Signature WBC 6.8 4.0 - 11.0 [facility] 10e9/L RBC Count 5.31 (H) 3.8 - 5.2 [facility] 10e12/L Hemoglobin 14.9 11.7 - [facility] 15.7 g/dL Hematocrit 46.6 35.0 - [place] 47.0 % MCV 88 78 - 100 [place] fl MCH 28.1 26.5 - [place] 33.0 pg MCHC 32.0 31.5 - [place] 36.5 g/dL RDW 14.0 10.0 - [facility] 15.0 % Platelet Count 257 150 - 450 [facility] 10e9/L Specimen Anatomical Collection Method Collection Time Receive d Time (Source) Location / / Volume Laterality 12/21/2006 8:57 AM 7 9:04 OPERATING TABLE ASSEMBLER AM OPERATING TABLE ASSEMBLER Dominick Shanks MD LABORATORY Performing Organization Address City/State/ZIP Code Phon e Number [facility] A.M.A. LIPID PANEL (12/21/2006 8:57 AM OPERATING TABLE ASSEMBLER) athologist Signature Cholesterol 150 0 - 200 [place] mg/dL [facility] Comment: LDL Cholesterol is the primary guide to therapy: LDL-cholesterol goal in high risk patients is <100 mg/dL and in very high risk patients is <70 mg/dL. The NCEP recommends further evaluation of: patients with cholesterol <200 mg/dL if additional risk factors are present, cholesterol >240 mg/dL, triglycerides >150 mg/dL, or HDL <40 mg/dL. Triglycerides 120 0 - 150 mg/dL [facility] HDL Cholesterol 50 50 - 110 mg/dL [facility] LDL Cholesterol Calculated 76 0 - 129 mg/dL [facility] VLDL-Cholesterol 24 0 - 30 mg/dL [place] [facility] Cholesterol/HDL Ratio 3.0 0.0 - 5.0 [facility] Specimen Anatomical Collection Method Collection Time Receive d Time (Source) Location / / Volume Laterality 12/21/2006 8:57 AM 7 9:04 OPERATING TABLE ASSEMBLER AM OPERATING TABLE ASSEMBLER Dominick Shanks MD LABORATORY Performing Organization Address City/State/ZIP Code Phon e Number [facility] [address] [place] [address] [facility] A.M.A. COMPREHENSIVE MET.PANEL (12/21/2006 8:57 AM OPERATING TABLE ASSEMBLER) P athologist Signature Sodium 139 133 - 144 [place] mmol/L [facility] Potassium 3.9 3.4 - 5.3 [place] mmol/L [facility] Chloride 107 94 - 109 [place] mmol/L [facility] Carbon Dioxide 23 20 - 32 [place] mmol/L [facility] Anion Gap 9 6 - 17 [place] mmol/L [facility] Glucose 86 60 - 99 [place] mg/dL [facility] Urea Nitrogen 14 5 - 24 [place] mg/dL [facility] Creatinine 0.88 0.60 - [facility] 1.30 mg/dL [facility] GFR Estimate 75 >60 [place] mL/min/1.7 [facility] m2 LAB GFR Estimate If >90 >60 [place] Black mL/min/1.7 [facility] m2 LAB Calcium 9.2 8.5 - 10.4 [place] mg/dL [facility] Bilirubin Total 0.8 0.2 - 1.3 [place] mg/dL [facility] Albumin 4.1 3.3 - 4.6 [place] g/dL [facility] Protein Total 7.3 6.0 - 8.2 [place] g/dL [facility] Alkaline 101 40 - 150 [place] Phosphatase U/L [facility] ALT 33 0 - 50 U/L [facility] AST 29 0 - 45 U/L [facility] Specimen Anatomical Collection Method Collection Time Receive d Time (Source) Location / / Volume Laterality 12/21/2006 8:57 AM 7 9:04 OPERATING TABLE ASSEMBLER AM OPERATING TABLE ASSEMBLER Dominick Shanks MD LABORATORY Performing Organization Address City/State/ZIP Code Phon e Number [facility] [address] [place] [address] [facility] documented in this encounter Visit Diagnoses Diagnosis Unspecified essential hypertension Mixed hyperlipidemia Excessive or frequent menstruation documented in this encounter Care Teams Noc Engineer Relationship Specialty Start Date End Date Dominick Shanks MD PCP - General 08/17/02 05/01/16 [place] [address] documented as of this encounter
--- OUTSIDE RECORDS SUMMARY | 2022-01-17 10:54 | XMS_ITS | Encounter Summary ---
:1965 Author Organization [place] Address [address] [place] [address]. [place] [address] Care Team Providers Name Role Phone Dominick Shanks MD Primary Care Provider [phone] Reason for Visit Reason Onset Date Comments Refill Request 02/16/2008 estradiol Encounter Details Date Type Department Care Team Description 02/16/2008 Refill [facility] Dominick Castro Refill Request 1447 [facility] MD Ivan (estradiol) [place] [address] [place] NO INFO FOUND [phone] [place] [address] (Wo rk) Social History Tobacco Use Types Packs/Day Years Used Date Smoking Tobacco: Never Alcohol Use Standard Drinks/Week Comments No 0 (1 standard drink = 0.6 oz pure alcoho l) Sex Assigned at Date Recorded Not on file documented as of this encounter Miscellaneous Notes Telephone Encounter - Blanca Lau - 02/17/2008 1:39 PM CST Script mailed to pt's home per request. Blanca Lau CUSTOMER ACCOUNT TECHNICIAN E RESPOOLER documented in this encounter Plan of Treatment Not on filedocumented as of this encounter Visit Diagnoses Diagnosis Need for prophylactic hormone replacemen t therapy (postmenopausal) documented in this encounter Care Teams Metallurgy Teacher Relationship Specialty Start Date End Date Dominick Shanks MD PCP - General 08/17/02 05/01/16 [place] [address] documented as of this encounter
--- OUTSIDE RECORDS SUMMARY | 2022-01-17 10:54 | XMS_ITS | Encounter Summary ---
:1965 Author Organization [facility] Address [address] [place] [address]. [place] [address] Care Team Providers Name Role Phone Dominick Shanks MD Primary Care Provider [phone] Reason for Visit Reason Onset Date Comments Erroneous encounter-disregard 03/12/2006 Encounter Details Date Type Department Care Team Description 03/08/2006 Refill [facility] Dominick Castro Erroneous 1447 [facility] MD Ivan encounter-disregard [place] [address] [place] NO INFO FOUND [phone] [place] [address] (Wo rk) Social History Tobacco Use Types Packs/Day Years Used Date Smoking Tobacco: Never Alcohol Use Standard Drinks/Week Comments No 0 (1 standard drink = 0.6 oz pure alcoho l) Sex Assigned at Date Recorded Not on file documented as of this encounter Plan of Treatment Not on filedocumented as of this encounter Visit Diagnoses Not on filedocumented in this encounter Care Teams Bedspread Seamer Relationship Specialty Start Date End Date Dominick Shanks MD PCP - General 08/17/02 05/01/16 [place] [address] documented as of this encounter
--- OUTSIDE RECORDS SUMMARY | 2022-01-17 10:54 | XMS_ITS | Encounter Summary ---
:1965 Author Organization [place] Address [address] [place] [address]. [place] [address] Care Team Providers Name Role Phone Dominick Shanks MD Primary Care Provider [phone] Reason for Visit Reason Onset Date Comments Refill Request 03/08/2006 valtrex Encounter Details Date Type Department Care Team Description 03/08/[address] [facility] Dominick Castro Refill Request (valtrex) 1447 [facility] [place] [address] XXX NO INFO FOUND [phone] [place] [address] (Wo rk) Social History Tobacco Use Types Packs/Day Years Used Date Smoking Tobacco: Never Alcohol Use Standard Drinks/Week Comments No 0 (1 standard drink = 0.6 oz pure alcoho l) Sex Assigned at Date Recorded Not on file documented as of this encounter Miscellaneous Notes Telephone Encounter - Larry Nath - 03/12/2006 12:23 PM CST SCRIPT FAXED TO PAT[facility]S [facility] documented in this encounter Plan of Treatment Not on filedocumented as of this encounter Visit Diagnoses Not on filedocumented in this encounter Care Teams Visual Coordinator Relationship Specialty Start Date End Date Dominick Shanks MD PCP - General 08/17/02 05/01/16 [place] [address] documented as of this encounter
--- OUTSIDE RECORDS SUMMARY | 2022-01-17 10:54 | XMS_ITS | Encounter Summary ---
:1965 Author Organization [facility] Address [address] [place] [address] Care Team Providers Name Role Phone Dominick Shanks MD Primary Care Provider [phone] Encounter Details Date Type Department Care Team Description 12/18/2007 Orders Only [facility] Dominick Castro, [address] [place] [address] [place] [address] XXX NO INFO FOUND XXX [phone] [place] [address] (Wo rk) Social History Tobacco Use Types Packs/Day Years Used Date Smoking Tobacco: Never Alcohol Use Standard Drinks/Week Comments No 0 (1 standard drink = 0.6 oz pure alcoho l) Sex Assigned at Date Recorded Not on file documented as of this encounter Plan of Treatment Not on filedocumented as of this encounter Procedures Procedure Name Priority Date/Time Associated Diagnosis Comme [facility] MAMMOGRAM, SCREENING BILATERAL Routine 12/16/2007 documented in this encounter Results MAMMOGRAM, SCREENING (12/16/2007) Anatomical Region Laterality Modality Other Narrative This result has an attachment that is no t available. Dominick Shanks MD SPECIAL IMAGING STUDIES documented in this encounter Visit Diagnoses Not on filedocumented in this encounter Care Teams Filling Operator Relationship Specialty Start Date End Date Dominick Shanks MD PCP - General 08/17/02 05/01/16 XXX NO INFO FOUND [place] [address] documented as of this encounter
--- OUTSIDE RECORDS SUMMARY | 2022-01-17 10:54 | XMS_ITS | Encounter Summary ---
:1965 Author Organization [place] Address [address] [place] [address]. [place] [address] Care Team Providers Name Role Phone Dominick Shanks MD Primary Care Provider [phone] Reason for Visit Reason Comments Physical Flu Shot Encounter Details Date Type Department Care Team Description 01/06/2008 Office Visit [facility] Dominick Shanks Need for Prophylactic Vaccination and Inoculation Against Influenza (Primary Dx); Shea Love MD Need for Prophylactic Hormone Replacemen t Therapy (Postmenopausal); 1447 [facility] XXX NO INFO FOUND Mixed Hyperlipidemia; [place] [address] [place] HYPERTENSION NOS; [phone] XXX Well Woman Exam with Routine Gynecologic al Exam; [place] [address] Screening Mammogram Social History Tobacco Use Types Packs/Day Years Used Date Smoking Tobacco: Never Alcohol Use Standard Drinks/Week Comments No 0 (1 standard drink = 0.6 oz pure alcoho l) Sex Assigned at Date Recorded Not on file documented as of this encounter Last Filed Vital Signs Vital Sign Reading Time Taken Comments Blood Pressure 128/78 01/06/2008 11:00 AM ASSEMBLER GOLD FRAME Pulse - - Temperature 36.3 ??C (97.3 ??F) 01/06/2008 11:00 AM ASSEMBLER GOLD FRAME Respiratory Rate - - Oxygen Saturation - - Inhaled Oxygen Concentration - - Weight 102.5 kg (226 lb) 01/06/2008 11:00 AM ASSEMBLER GOLD FRAME Height 174.6 cm (5' 8.75) 01/06/2008 11:00 AM ASSEMBLER GOLD FRAME Body Mass Index 33.62 01/06/2008 11:00 AM ASSEMBLER GOLD FRAME documented in this encounter Progress Notes Yarely May - 01/15/2008 4:23 PM ASSEMBLER GOLD FRAME Addended by: YARELY MAY on: 01/15/2008 4:23:43 PM Modules accepted: Orders MBLER GOLD FRAME Rosenda Rodriguez - 01/13/2008 10:42 AM CST 01-06-08-Nathalie Rodriguez-Annual PE. Extremely busy with her job. 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 Likes her job. States overall she feels well. SOR is essentially neg. except concerns about her weight. She is on BP medication and also Crestor. Denies any C-R, GI, or symptoms. Exam, weight is actually down 6 lbs. from last year. Head and neck neg. Thyroid not palpable. Chest clear. Heart, no murmur. Breasts, no masses. Abd. neg. Pelvic, normal exam. No masses. No rectal masses. Good support. Extremes and neuro neg. Skin neg. She is going to set up Sat. appt. to have lipids, AST and hgb. Also, to have thyroid studies. She did have chemistries and lipids earlier this year and CBC. This does not need to be repeated. To schedule mammo. She will continue on the same medications. New scripts are given. MBLER GOLD FRAME documented in this encounter Nursing Notes 01/06/2008 11:00 AM CST >> YAIMA SOMMER Riley Jan 06, 2008 12:54 PM Are you currently ill with more than a cold: No Are you allergic to eggs or egg products: No Are you allergic to Thimerosal: No Have you had a reaction to an influenza vaccine in the past: No Have you ever been diagnosed with Guillain-Montes?? Syndrome: No Yaima Sommer/ CAMILA >> YAIMA KEMAL Lin Jan 06, 2008 11:06 AM Nathalie Rodriguez presents for Patient presents with: Physical Flu Shot Initial BP 128/78 Temp 97.3 ??F (36.3 ??C) Ht 5' 8.75 (1.746 m) Wt 226 lb (102.513 kg) LMP Hysterectomy Body mass index is 33.62 kg/(m^2).. BP completed using cuff size: large. Yaima Kemal/ CAMILA documented in this encounter Plan of Treatment Not on filedocumented as of this encounter Procedures Procedure Name Priority Date/Time Associated Diagnosis Comme nts HCL PAP THIN LAYER Routine 01/06/2008 12:00 Well Woman Exam wi th Results for this SCREEN AM ASSEMBLER GOLD FRAME Routine Gynecological proced ure are in Exam the results section. documented in this encounter Results A THIN LAYER PAP SCREEN (01/06/2008 12:00 AM ASSEMBLER GOLD FRAME) Component Value Ref Test Analysis Performed At [facility] Range Method Time Signature PAP NIL COPATH Copath Report COPATH Patient Name: NATHALIE RODRIGUEZ MR#: [id number] Specimen #: [id number] Collected: 01/06/2008 Received: 01/07/2008 Reported: 01/12/2008 10:17 Ordering Phy(s): DOMINICK SHANKS SPECIMEN/STAIN PROCESS: Pap thin layer prep screening ([facility]) ? Pap-Cyto x 1, Reflex HPV x 1 SOURCE: Vaginal ---- Pap thin layer prep screening ([facility]) SPECIMEN ADEQUACY: Satisfactory for evaluation. -Transformation zone component absent. CYTOLOGIC INTERPRETATION: Negative for Intraepithelial Lesion or Malignancy Electronically signed out by: TOMEKA Batista (ASCP) [facility] CLINICAL HISTORY: Hysterectomy, Previous normal pap Date of Last Pap: 02/08/2006, TESTING LAB LOCATION: [address] ??[id number] COLLECTION SITE: Client: ??[facility] Location: [facility] (S) Specimen (Source) Anatomical Collection Method Collection Time Re ceived Time Location / / Volume Laterality 01/06/2008 01/07/2008 11:1 2 AM ASSEMBLER GOLD FRAME Dominick Shanks MD LABORATORY Performing Organization Address City/State/ZIP Code Phon e Number [place] documented in this encounter Visit Diagnoses Diagnosis Need for prophylactic vaccination and in oculation against influenza - Primary Need for prophylactic hormone replacemen t therapy (postmenopausal) Mixed hyperlipidemia HYPERTENSION NOS Unspecified essential hypertension Well woman exam with routine gynecologic al exam Routine gynecological examination Screening mammogram Other screening mammogram documented in this encounter Care Teams Customer Service And Sales Consultant Relationship Specialty Start Date End Date Dominick Shanks MD PCP - General 08/17/02 05/01/16 [place] [address] documented as of this encounter
--- OUTSIDE RECORDS SUMMARY | 2022-01-17 10:54 | XMS_ITS | Encounter Summary ---
:1965 Author Organization [facility] Address [address] [place] [address] Care Team Providers Name Role Phone Dominick Shanks MD Primary Care Provider [phone] Reason for Visit Reason Onset Date Comments Refill Request 12/16/2007 Estradiol Encounter Details Date Type Department Care Team Description 12/16/2007 Refill [facility] Dominick Castro Refill Request 1447 [facility] MD Ivan (Estradiol) [place] [address] [place] NO INFO FOUND [phone] [place] [address] (Wo rk) Social History Tobacco Use Types Packs/Day Years Used Date Smoking Tobacco: Never Alcohol Use Standard Drinks/Week Comments No 0 (1 standard drink = 0.6 oz pure alcoho l) Sex Assigned at Date Recorded Not on file documented as of this encounter Miscellaneous Notes Telephone Encounter - Gretchen Nath - 12/18/2007 3:09 PM CST Script faxed to pharmacy-Gretchen Jordan WASHER documented in this encounter Plan of Treatment Not on filedocumented as of this encounter Visit Diagnoses Diagnosis Need for prophylactic hormone replacemen t therapy (postmenopausal) documented in this encounter Care Teams Food Equipment Service Technician Relationship Specialty Start Date End Date Dominick Shanks MD PCP - General 08/17/02 05/01/16 [place] [address] documented as of this encounter
--- OUTSIDE RECORDS SUMMARY | 2022-01-17 10:54 | XMS_ITS | Encounter Summary ---
:1965 Author Organization [place] Address [address] [place] [address]. [place] [address] Care Team Providers Name Role Phone Dominick Shanks MD Primary Care Provider [phone] Encounter Details Date Type Department Care Team Description 08/06/2007 Orders Only [facility] Dominick Shanks HYPERTENS ION NOS; Shea Love MD Mixed Hyperlipidemia; [address] [facility] XXX NO INFO FOUND Routine Medical Exam [place] [address] XXX [phone] [place] [address] Social History Tobacco Use Types Packs/Day Years Used Date Smoking Tobacco: Never Alcohol Use Standard Drinks/Week Comments No 0 (1 standard drink = 0.6 oz pure alcoho l) Sex Assigned at Date Recorded Not on file documented as of this encounter Plan of Treatment Not on filedocumented as of this encounter Visit Diagnoses Diagnosis HYPERTENSION NOS Unspecified essential hypertension Mixed hyperlipidemia Routine medical exam Routine general medical examination at a health care facility documented in this encounter Care Teams Insurance Professional Relationship Specialty Start Date End Date Dominick Shanks MD PCP - General 08/17/02 05/01/16 XXX [place] [address] documented as of this encounter
--- OUTSIDE RECORDS SUMMARY | 2022-01-17 10:54 | XMS_ITS | Encounter Summary ---
:1965 Author Organization [place] Address [address] [place] [address]. [place] [address] Care Team Providers Name Role Phone Dominick Shanks MD Primary Care Provider [phone] Encounter Details Date Type Department Care Team Description 01/10/2008 Orders Only [facility] Dominick Shanks HYPERTENS ION NOS; Shea Love MD Mixed Hyperlipidemia; [address] XXX NO INFO FOUND EXCESSIVE MENSTRUATION [place] [address] XXX [phone] XXX [place] [id number] Social History Tobacco Use Types Packs/Day Years Used Date Smoking Tobacco: Never Alcohol Use Standard Drinks/Week Comments No 0 (1 standard drink = 0.6 oz pure alcoho l) Sex Assigned at Date Recorded Not on file documented as of this encounter Plan of Treatment Not on filedocumented as of this encounter Visit Diagnoses Diagnosis HYPERTENSION NOS Unspecified essential hypertension Mixed hyperlipidemia EXCESSIVE MENSTRUATION Excessive or frequent menstruation documented in this encounter Care Teams Front Desk Administrator Relationship Specialty Start Date End Date Dominick Shanks MD PCP - General 08/17/02 05/01/16 XXX NO INFO FOUND XXX [place] [id number] documented as of this encounter
--- OUTSIDE RECORDS SUMMARY | 2022-01-17 10:54 | XMS_ITS | Encounter Summary ---
:1965 Author Organization [place] Address [address] [place] [address]. [place] [address] Care Team Providers Name Role Phone Dominick Shanks MD Primary Care Provider [phone] Reason for Visit Reason Comments Blood Draw Encounter Details Date Type Department Care Team Description 01/10/2008 Orders Only [facility] ska Mixed Hyperlipidemia; [address] EXCESSIVE MENSTRUATION; [place] [address] HYPERTENSION NOS [phone] Social History Tobacco Use Types Packs/Day Years Used Date Smoking Tobacco: Never Alcohol Use Standard Drinks/Week Comments No 0 (1 standard drink = 0.6 oz pure alcoho l) Sex Assigned at Date Recorded Not on file documented as of this encounter Plan of Treatment Not on filedocumented as of this encounter Procedures Procedure Name Priority Date/Time Associated Diagnosis Comme nts HCL HEMOGLOBIN Routine 01/10/2008 8:36 AM EXCESSIVE MENSTRUATI ON Results for this NONLAB [employer] procedure are i n the results section. HCL HEMATOCRIT Routine 01/10/2008 8:36 AM EXCESSIVE MENSTRUATI ON Results for this [employer] procedure are i n the results section. HCL TSH Routine 01/10/2008 8:36 AM Mixed Hyperli pidemia Results for this [employer] EXCESSIVE MENSTR UATION procedure are in HYPERTENSION NOS the results section. HCL T4 FREE Routine 01/10/2008 8:36 AM Mixed Hyperli pidemia Results for this [employer] EXCESSIVE MENSTRUATION proce dure are in the results section. HCL AST Routine 01/10/2008 8:36 AM Mixed Hyperlipidemia R esults for this [employer] procedure are i n the results section. CL AFF A.M.A. LIPID Routine 01/10/2008 8:36 AM Mixed Hyperlipi demia Results for this PANEL [employer] procedure are i n the results section. documented in this encounter Results HEMATOCRIT (01/10/2008 8:36 AM [employer]) athologist Signature Hematocrit 44.5 35.0 - 47.0 MISYS % Specimen Anatomical Collection Method Collection Time Receive d Time (Source) Location / / Volume Laterality 01/10/2008 8:36 AM 8 8:37 [employer] AM [employer] [facility] Dominick Shanks MD LABORATORY Performing Organization Address City/State/ZIP Code Phon e Number MISYS HGB (01/10/2008 8:36 AM [employer] [facility]) athologist Signature Hemoglobin 14.9 11.7 - 15.7 [place] g/dL Specimen Anatomical Collection Method Collection Time Receive d Time (Source) Location / / Volume Laterality 01/10/2008 8:36 AM 8 8:37 [employer] AM [employer] [facility] Dominick Shanks MD LABORATORY Performing Organization Address City/[facility] Phon e Number MISYS T4, FREE, SERUM (01/10/2008 8:36 AM [employer] [facility]) athologist [facility] T4 Free 0.76 0.70 - 1.85 [place] ng/dL CLINIC LAB Specimen Anatomical Collection Method Collection Time Receive d Time (Source) Location / / Volume Laterality 01/10/2008 8:36 AM 8 8:37 [employer] AM [employer] [facility] Dominick Shanks MD LABORATORY Performing Organization Address City/[facility] Phon e Number [facility] [address] [place] [address] [facility] TSH- (01/10/2008 8:36 AM [employer]) athologist [facility] TSH 1.54 0.4 - 5.0 [place] mU/L CLINIC LAB Specimen Anatomical Collection Method Collection Time Receive d Time (Source) Location / / Volume Laterality 01/10/2008 8:36 AM 8 8:37 [employer] AM [employer] [facility] Dominick Shanks MD LABORATORY Performing Organization Address City/State/ZIP Code Phon e Number [facility] [address] [place] [address] [facility] AST (01/10/2008 8:36 AM [employer]) P athologist Signature AST 26 0 - 45 U/L [facility] Specimen Anatomical Collection Method Collection Time Receive d Time (Source) Location / / Volume Laterality 01/10/2008 8:36 AM 8 8:37 [employer] AM [employer] [facility] Dominick Shanks MD LABORATORY Performing Organization Address City/[facility]/ZIP Code Phon e Number [facility] [address] [place] [address] [facility] (ABNORMAL) A.M.A. LIPID PANEL (01/10/2008 8:36 AM [employer]) athologist Signature Cholesterol 155 0 - 200 [place] mg/dL [facility] Comment: LDL Cholesterol is the primary guide to therapy: LDL-cholesterol goal in high risk patients is <100 mg/dL and in very high risk patients is <70 mg/dL. The NCEP recommends further evaluation of: patients with cholesterol <200 mg/dL if additional risk factors are present, cholesterol >240 mg/dL, triglycerides >150 mg/dL, or HDL <40 mg/dL. Triglycerides 98 0 - 150 mg/dL [facility] HDL Cholesterol 49 (L) 50 - 110 mg/dL [facility] LDL Cholesterol Calculated 87 0 - 129 mg/dL [facility] VLDL-Cholesterol 20 0 - 30 mg/dL [place] [facility] Cholesterol/HDL Ratio 3.2 0.0 - 5.0 [facility] Specimen Anatomical Collection Method Collection Time Receive d Time (Source) Location / / Volume Laterality 01/10/2008 8:36 AM 8 8:37 [employer] AM [employer] [facility] Dominick Shanks MD LABORATORY Performing Organization Address City/State/ZIP Code Phon e Number [facility] [address] [place] [address] [facility] documented in this encounter Visit Diagnoses Diagnosis Mixed hyperlipidemia EXCESSIVE MENSTRUATION Excessive or frequent menstruation HYPERTENSION NOS Unspecified essential hypertension documented in this encounter Care Teams Hoop Punch And Coiler Operator Helper Relationship Specialty Start Date End Date Dominick Shanks MD PCP - General 08/17/02 05/01/16 XXX [place] [address] documented as of this encounter
--- OUTSIDE RECORDS SUMMARY | 2022-01-17 10:54 | XMS_ITS | Encounter Summary ---
:1965 Author Organization [facility] Address [address] [place] [address]. [place] [address] Care Team Providers Name Role Phone Dominick Shanks MD Primary Care Provider [phone] Reason for Visit Reason Onset Date Comments Other 05/12/2008 request from Maxime nettles for records from 05/06/07 to present, faxed to [phone] Encounter Details Date Type Department Care Team Description 05/12/2008 Telephone [facility] Dominick Shanks Other (re quest from MD Jackson Gross for records [address] [facility] XXX NO INFO FOUND from 05/06/07 to [place] [address] XXX present, faxed to [phone] XXX [phone]) [place] [address] (Wo rk) Social History Tobacco Use Types Packs/Day Years Used Date Smoking Tobacco: Never Alcohol Use Standard Drinks/Week Comments No 0 (1 standard drink = 0.6 oz pure alcoho l) Sex Assigned at Date Recorded Not on file documented as of this encounter Plan of Treatment Not on filedocumented as of this encounter Visit Diagnoses Not on filedocumented in this encounter Care Teams Fork Lift Mechanic Relationship Specialty Start Date End Date Dominick Shanks MD PCP - General 08/17/02 05/01/16 XXX NO INFO FOUND XXX XXX [place] [id number] documented as of this encounter
--- OUTSIDE RECORDS SUMMARY | 2022-01-17 10:54 | XMS_ITS | Encounter Summary ---
:1965 Author Organization [place] Address [address] [place] [address]. [place] [address] Care Team Providers Name Role Phone Dominick Shanks MD Primary Care Provider [phone] Reason for Referral - Closed Specialty Diagnoses / Procedures Referred By Contact Refer red To Contact Diagnoses Excessive or frequent menstruation Dominick Shanks MD XXX NO INFO FOUND XX X XXX [place] [id number] Referral ID Status Reason Start Date Expiration Date Visits Requ ested Visits Authorized [id number] Closed 07/19/2006 02/10/2011 1 1 Reason for Visit Reason Comments Abnormal Bleeding Problem Encounter Details Date Type Department Care Team Description 07/15/2006 Office Visit [facility] Dominick Shanks EXCESSIVE MENSTRUATION (Primary Dx); Shea Love MD HYPERTENSION NOS [address] [facility] XXX NO INFO FOUND [place] [address] XXX [phone] XXX [place] [address] Social History Tobacco Use Types Packs/Day Years Used Date Smoking Tobacco: Never Alcohol Use Standard Drinks/Week Comments No 0 (1 standard drink = 0.6 oz pure alcoho l) Sex Assigned at Date Recorded Not on file documented as of this encounter Last Filed Vital Signs Vital Sign Reading Time Taken Comments Blood Pressure 140/82 07/15/2006 3:30 PM CDT Pulse - - Temperature 36.7 ??C (98 ??F) 07/15/2006 3:30 PM CDT Respiratory Rate - - Oxygen Saturation - - Inhaled Oxygen Concentration - - Weight 104 kg (229 lb 3.2 oz) 07/15/2006 3:30 PM CDT Height - - Body Mass Index 33.85 06/22/2006 10:00 AM CDT documented in this encounter Progress Notes Rosenda Rodriguez - 07/23/2006 7:47 AM CDT 07-15-06-Nathalie Bowen-Period restarted. This is the first one since she had her D&C. Fairly heavy and some cramping. It is not as bad as before the D&C but she would like to have hysterectomy. Also, she is tolerating the Cozaar samples and wants script. No side effects. Also, she does need a mammo scheduled. On exam, the uterus is posterior, about 4 to 5 wk. size. No masses can be felt. Hypermenorrhea, will get surgery consult. Also, schedule mammogram and she is given a script for Cozaar 50 mg. #90, R x 1. documented in this encounter Nursing Notes 07/15/2006 3:30 PM CDT >> SHERRI SOMMER 07/15/2006 3:30 pm Nathalie Bowen presents for menses problem. Initial BP 140/82 Temp (Src) 98 (Tympanic) Wt 229 lbs 3.2 oz (104.0kg) LMP 07/11/2006 Estimated Body mass index is 33.83 kg/(m^2) as calculated from: Height of 5' 9 (1.753 m) as of 06/22/06 Weight of 229 lbs 3.2 oz (103.964 kg) as of this encounter. BP completed using cuff size: large. Sherri Sommer/ CAMILA documented in this encounter Plan of Treatment Not on filedocumented as of this encounter Procedures Procedure Name Priority Date/Time Associated Diagnosis Comme nts ZZ CONSULT SHEET METAL ASSEMBLER AND RIVETER Routine 07/15/2006 Excessive Menstruati on documented in this encounter Results CONSULT SHEET METAL ASSEMBLER AND RIVETER (07/15/2006) Narrative This result has an attachment that is no t available. Dominick Shanks MD REFERRAL documented in this encounter Visit Diagnoses Diagnosis Excessive or frequent menstruation - Roopa gonzalez Unspecified essential hypertension documented in this encounter Care Teams Websphere Portal Architect Relationship Specialty Start Date End Date Dominick Shanks MD PCP - General 08/17/02 05/01/16 [place] [address] documented as of this encounter
--- OUTSIDE RECORDS SUMMARY | 2022-01-17 10:54 | XMS_ITS | Encounter Summary ---
:1965 Author Organization [facility] Address [address] [place] [address]. [place] [address] Care Team Providers Name Role Phone Dominick Shanks MD Primary Care Provider [phone] Reason for Visit Reason Comments Physical Encounter Details Date Type Department Care Team Description 01/03/2007 Office Visit [facility] Dominick Shanks MIXED HYP ERLIPIDEMIA (Primary Dx); Shea Love MD HYPERTENSION NOS; [address] [facility] XXX NO INFO FOUND ROUTINE MEDICAL EXAM [place] [address] XXX [phone] XXX [place] [id number] Social History Tobacco Use Types Packs/Day Years Used Date Smoking Tobacco: Never Alcohol Use Standard Drinks/Week Comments No 0 (1 standard drink = 0.6 oz pure alcoho l) Sex Assigned at Date Recorded Not on file documented as of this encounter Last Filed Vital Signs Vital Sign Reading Time Taken Comments Blood Pressure 128/78 01/03/2007 11:00 AM ENGINEER TECHNICAL STAFF Pulse - - Temperature 37 ??C (98.6 ??F) 01/03/2007 11:00 AM ENGINEER TECHNICAL STAFF Respiratory Rate - - Oxygen Saturation - - Inhaled Oxygen Concentration - - Weight 105.2 kg (232 lb) 01/03/2007 11:00 AM ENGINEER TECHNICAL STAFF Height 174 cm (5' 8.5) 01/03/2007 11:00 AM ENGINEER TECHNICAL STAFF Body Mass Index 34.76 01/03/2007 11:00 AM ENGINEER TECHNICAL STAFF documented in this encounter Progress Notes Rosenda Rodriguez - 01/06/2007 12:50 PM CST 01-03-07-Nathalie Bowen-She is post-hysterectomy. Has healed well. Feels very good. PE, she is on BPand lipid lowering meds. SOR: HEENT neg. Denies headaches. C-R, excellent. BP???s have been well controlled. Good exercise tolerance. GI, no change in bowel habits. No bleeding. , denies urinary symptoms. Post-hyster. N-M, neg. Hgb. was anemic because of excessive menstrual bleed in the past. Endocrine, has had negative studies. Habits: a non-smoker, non-drinker. Exam, head and neck neg. Chest clear. Heart, no murmur. Breasts, no masses. Abdomen is neg. Pelvic, excellent support. No masses. No rectal masses. Extremes neg. Neuro and skin neg. She has one small keratoses on the rt. upper back that is benign. Hgb. is excellent. Recent labs show hgb. of l4.9. Chemistries are normal. Lipids are excellent. Continue on the same medication. Should recheck in 6 mos. Will increase exercise, watch weight. She does need a mammogram next year. Also, note that she is on Vit. C and Eddi. E. NEER TECHNICAL STAFF documented in this encounter Nursing Notes 01/03/2007 11:00 AM CST >> SHERRI SOMMER 01/03/2007 11:14 am Nathalie Bowen presents for PX. Initial BP 128/78 Temp (Src) 98.6 (Tympanic) Ht 5' 8.5 (1.74m) Wt 232 lbs (105.2kg) LMP Hysterectomy Body mass index is 34.76 kg/(m^2).. BP completed using cuff size: large. Sherri Sommer/ CAMILA documented in this encounter Plan of Treatment Not on filedocumented as of this encounter Visit Diagnoses Diagnosis Mixed hyperlipidemia - Primary Unspecified essential hypertension Routine general medical examination at a health care facility documented in this encounter Care Teams X Ray Developing Machine Operator Relationship Specialty Start Date End Date Dominick Shanks MD PCP - General 7/7/03 3/21/17 XXX [place] [address] documented as of this encounter
--- OUTSIDE RECORDS SUMMARY | 2022-01-17 10:55 | XMS_ITS | Encounter Summary ---
:1965 Author Organization [facility] Address [address] [place] [address]. [place] [address] Care Team Providers Name Role Phone Dominick Shanks MD Primary Care Provider [phone] Reason for Visit Reason Comments Flu Shot Encounter Details Date Type Department Care Team Description 12/11/2005 [facility] Dominick Castro Flu Shot Visit 14[address] [facility] [place] [address] XXX NO INFO FOUND [phone] [place] [address] (Wo rk) Social History Tobacco Use Types Packs/Day Years Used Date Smoking Tobacco: Never Alcohol Use Standard Drinks/Week Comments No 0 (1 standard drink = 0.6 oz pure alcoho l) Sex Assigned at Date Recorded Not on file documented as of this encounter Progress Notes Blanca Lau - 12/11/2005 9:42 AM CST Injectable Influenza Immunization Documentation Form NAME: Nathalie Bowen : 1965 DATE: 12/11/2005 FLU VACCINE PROCEDURE DOCUMENTATION Injectable Influenza Immunization Documentation Form 1. Has the patient received the information for the influenza vaccine? YES 2. Does the patient have any of the following contraindications? Allergy to eggs? No Allergic reaction to previous influenza vaccines? No Paralyzed by Guillain-Posey syndrome? No Currently have moderate or severe illness? No Allergy to contact lens solution/thimerosol? No 3. The vaccine has been administered and the patient was instructed to wait 15 minutes before leaving the building in the event of an allergic reaction: YES Vaccination given by Chelo Jarrett LPN RPERSONAL COMMUNICATIONS PROFESSOR documented in this encounter Plan of Treatment Not on filedocumented as of this encounter Visit Diagnoses Diagnosis Need for prophylactic vaccination and in oculation against influenza - Primary documented in this encounter Care Teams Canal Superintendent Relationship Specialty Start Date End Date Dominick Shanks MD PCP - General 08/17/02 05/01/16 XXX [place] [address] documented as of this encounter
--- OUTSIDE RECORDS SUMMARY | 2022-01-17 10:55 | XMS_ITS | Encounter Summary ---
:1965 Author Organization [facility] Address [address] [place] [address]. [place] [address] Care Team Providers Name Role Phone Dominick Shanks MD Primary Care Provider [phone] Reason for Visit Reason Comments Wrist Pain LEFT Encounter Details Date Type Department Care Team Description 01/19/2006 Office Visit [facility] Dominick Shanks MIXED HYP ERLIPIDEMIA; Shea Love MD ROUTINE MEDICAL EXAM; 1447 [facility] XXX NO INFO FOUND SYNOVITIS NOS [place] [address] XXX [phone] XXX [place] Hernandez [address] Social History Tobacco Use Types Packs/Day Years Used Date Smoking Tobacco: Never Alcohol Use Standard Drinks/Week Comments No 0 (1 standard drink = 0.6 oz pure alcoho l) Sex Assigned at Date Recorded Not on file documented as of this encounter Last Filed Vital Signs Vital Sign Reading Time Taken Comments Blood Pressure 108/68 01/19/2006 10:00 AM RIVET TOSSER Pulse - - Temperature 37 ??C (98.6 ??F) 01/19/2006 10:00 AM RIVET TOSSER Respiratory Rate - - Oxygen Saturation - - Inhaled Oxygen Concentration - - Weight 99.8 kg (220 lb) 01/19/2006 10:00 AM RIVET TOSSER Height - - Body Mass Index 32.02 01/16/2005 9:30 AM RIVET TOSSER documented in this encounter Progress Notes Rosenda Rodriguez - 01/28/2006 9:23 AM CST 01-19-06-Nathalie Bowen-Painful left wrist. She feels it is from repetitive use. She has been drivinga bus. Also years and years of working at the [employer] with a repetitive twisting motion to the wrist. 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 Given a splint w/thumb. To use ice and start [id number] x 3, 20 x 3, etc. She is aware this may affect her periods. She is going to return for a PE. T TOSSER documented in this encounter Nursing Notes 01/19/2006 10:00 AM CST >> RACHEL WEBER 01/19/2006 10:48 am Nathalie Bowen presents for L wrist pain. Initial BP 108/68 Temp (Src) 98.6 (Tympanic) Wt 220 lbs (99.8kg) Estimated Body mass index is 32.03 kg/(m^2) as calculated from: Height of 5' 9.5 (1.765 m) as of 01/16/05 Weight of 220 lbs (99.791 kg) as of this encounter. BP completed using cuff size: large Rachel Weber R.N. documented in this encounter Plan of Treatment Not on filedocumented as of this encounter Procedures Procedure Name Priority Date/Time Associated Diagnosis Comme nts CL AFF CBC WITH Routine 01/19/2006 10:32 Routine Medical Exam Results for this PLATELETS AM RIVET TOSSER procedure are i n the results section. HCL COMPREHENSIVE Routine 01/19/2006 10:32 Routine Medical Exa m Results for this METABOLIC PANEL AM RIVET TOSSER procedure ar e in the results section. CL AFF A.M.A. LIPID Routine 01/19/2006 10:32 Mixed Hyperlipide perlita Results for this PANEL AM RIVET TOSSER procedure are i n the results section. documented in this encounter Results (ABNORMAL) CBC WITH PLATELETS (01/19/2006 10:32 AM RIVET TOSSER) Analysis Performed At Patho logist Time Signature WBC 5.9 4.0 - 11.0 [facility] 10e9/L RBC Count 5.48 (H) 3.8 - 5.2 [facility] 10e12/L Hemoglobin 14.8 11.7 - [facility] 15.7 g/dL Hematocrit 45.7 35.0 - [facility] 47.0 % MCV 83 78 - 100 [facility] fl MCH 27.0 26.5 - [facility] 33.0 pg MCHC 32.4 32.0 - [facility] 36.0 g/dL RDW 15.8 (H) 10.0 - [facility] 15.0 % Platelet Count 272 150 - 450 [facility] 10e9/L Specimen Anatomical Collection Method Collection Time Receive d Time (Source) Location / / Volume Laterality 01/19/2006 10:32 01/19/2006 AM RIVET TOSSER 10:33 AM RIVET TOSSER Dominick Shanks MD LABORATORY Performing Organization Address City/State/ZIP Code Phon e Number [facility] A.M.A. COMPREHENSIVE MET.PANEL (01/19/2006 10:32 AM RIVET TOSSER) P athologist Signature Sodium 142 133 - 144 [facility] mmol/L [facility] Potassium 3.8 3.4 - 5.3 [facility] mmol/L [facility] Chloride 109 94 - 109 [facility] mmol/L [facility] Carbon Dioxide 21 20 - 32 [facility] mmol/L [facility] Anion Gap 13 6 - 17 [facility] mmol/L [facility] Glucose 93 60 - 110 [facility] mg/dL [facility] Urea Nitrogen 14 5 - 24 [facility] mg/dL [facility] Creatinine 0.90 0.60 - [facility] 1.30 mg/dL [facility] GFR Estimate 74 >60 [facility] mL/min/1.7 [facility] m2 LAB GFR Estimate If 89 >60 [facility] Black mL/min/1.7 [facility] m2 LAB Comment: Stages of Chronic Kidney Disease Stage 1: ??GFR 90 or greater and other e vidence of kidney damage* Stage 2: ??GFR 60-89 and other evidence of kidney damage * Stage 3: ??GFR 30-59 Stage 4: ??GFR 15-29 Stage 5: ??GFR less than 15 or dialysis *Chronic kidney disease is defined as ki dney damage or GFR less than 60 mL/min/1.73 m2 for three months or grea ter. ??Kidney damage is defined as pathologic abnormalities or markers or damage, including abnormalities in blood or urine tests or imaging studies. Calcium 9.1 8.5 - 10.4 mg/dL [facility] Bilirubin Total 0.4 0.2 - 1.3 mg/dL [facility] Albumin 3.8 3.3 - 4.6 g/dL [facility] Protein Total 7.4 6.0 - 8.2 g/dL [facility] Alkaline Phosphatase 77 40 - 150 U/L [facility] ALT 28 0 - 50 U/L [facility] AST 18 0 - 45 U/L [facility] Specimen Anatomical Collection Method Collection Time Receive d Time (Source) Location / / Volume Laterality 01/19/2006 10:32 01/19/2006 AM RIVET TOSSER 10:33 AM RIVET TOSSER Dominick Shanks MD LABORATORY Performing Organization Address City/State/ZIP Code Phon e Number [facility] [address] [place] [address] [facility] (ABNORMAL) A.M.A. LIPID PANEL (01/19/2006 10:32 AM RIVET TOSSER) P athologist Signature Cholesterol 221 (H) 0 - 200 [place] mg/dL [facility] Comment: LDL Cholesterol is the primary guide to therapy: LDL-cholesterol goal in high risk patients is <100 mg/dL and in very high risk patients is <70 mg/dL. The NCEP recommends further evaluation of: patients with cholesterol <200 mg/dL if additional risk factors are present, cholesterol >240 mg/dL, triglycerides >150 mg/dL, or HDL <40 mg/dL. Triglycerides 130 0 - 150 mg/dL [facility] HDL Cholesterol 44 (L) 50 - 110 mg/dL [facility] LDL Cholesterol Calculated 151 (H) 0 - 129 mg/dL [facility] Comment: LDL Cholesterol is the primary guide to therapy: LDL-cholesterol goal in high risk patients is <100 mg/dL and in very high risk patients is <70 mg/dL. VLDL-Cholesterol 26 0 - 30 mg/dL [facility] Cholesterol/HDL Ratio 5.1 (H) 0.0 - 5.0 [facility] Specimen Anatomical Collection Method Collection Time Receive d Time (Source) Location / / Volume Laterality 01/19/2006 10:32 01/19/2006 AM RIVET TOSSER 10:33 AM RIVET TOSSER Dominick Shanks MD LABORATORY Performing Organization Address City/State/ZIP Code Phon e Number [facility] [address] [place] [address] [facility] documented in this encounter Visit Diagnoses Diagnosis Mixed hyperlipidemia Routine general medical examination at a [facility] care facility Synovitis and tenosynovitis, unspecified documented in this encounter Care Teams Director Of Construction Relationship Specialty Start Date End Date Dominick Shanks MD PCP - General 08/17/02 3 [place] [address] documented as of this encounter
--- OUTSIDE RECORDS SUMMARY | 2022-01-17 10:55 | XMS_ITS | Encounter Summary ---
:1965 Author Organization [facility] Address [address] [place] [address]. [place] [address] Care Team Providers Name Role Phone Dominick Higgins MD Primary Care Provider Reason for Visit Reason Comments Physical Encounter Details Date Type Department Care Team Description 02/08/2006 Office Visit [facility] Dominick Higgins EDICAL EXAM (Primary Dx); Shea Love MD MIXED HYPERLIPIDEMIA; [address] [employer] XXX NO INFO FOUND HYPERTENSION NOS; [place] [address] XXX EXCESSIVE MENSTRUATION [phone] XXX [place] [address] Social History Tobacco Use Types Packs/Day Years Used Date Smoking Tobacco: Never Alcohol Use Standard Drinks/Week Comments No 0 (1 standard drink = 0.6 oz pure alcoho l) Sex Assigned at Date Recorded Not on file documented as of this encounter Last Filed Vital Signs Vital Sign Reading Time Taken Comments Blood Pressure 140/90 02/08/2006 11:00 AM APPRENTICE JOCKEY Pulse - - Temperature 37.4 ??C (99.4 ??F) 02/08/2006 11:00 AM APPRENTICE JOCKEY Respiratory Rate - - Oxygen Saturation - - Inhaled Oxygen Concentration - - Weight 100.3 kg (221 lb 3.2 oz) 02/08/2006 11:00 AM APPRENTICE JOCKEY Height 175.3 cm (5' 9) 02/08/2006 11:00 AM APPRENTICE JOCKEY Body Mass Index 32.67 02/08/2006 11:00 AM APPRENTICE JOCKEY documented in this encounter Progress Notes Rosenda Rodriguez - 02/14/2006 10:24 AM CST 02-08-06-Nathalie Andrés-PE. Last menses 01-26-06. Not as heavy as they have been with the BCP. She is willing to continue trying it. SOR: HEENT, no change. CR, no symptoms. She has not been taking medication for elevated cholesterol.GI, no change in bowel habits, no bleeding. , as noted. Heavy menses even with the periods as theyare. NM neg. Hgb. and endocrine neg. Note that BP is up at times. It has been consistently elevated. Exam, weigh is the same as last year. Neck supple. Thyroid neg. Chest clear. Heart, no murmur. Breasts, no masses. Abdomen is neg. Pelvic, hypertrophic cervix. Adequate support. Good estrogen effect. No masses. Uterus about 5 weeks. No adnexal mass. Extremes and neuro neg. Labs from 01-19 are all normal except for her elevated lipids. They are not too bad. Her ratio is 5.1. Lisinopril 10 mg. 1 daily plus Crestor 10 mg. 4 weeks of samples. Will recheck in 3 mos. BP card andto continue evaluation. ENTICE JOCKEY documented in this encounter Nursing Notes 02/08/2006 11:00 AM CST >> YAIMA SOMMER 02/08/2006 12:09 pm Nathalie Rodriguez presents for px. Initial BP 140/90 Temp (Src) 99.4 (Tympanic) Ht 5' 9 (1.75m) Wt 221 lbs 3.2 oz (100.3kg) LMP 01/26/2006 Body mass index is 32.65 kg/(m^2).. BP completed using cuff size: large. Yaima Sommer/ CAMILA documented in this encounter Plan of Treatment Not on filedocumented as of this encounter Procedures Procedure Name Priority Date/Time Associated Diagnosis Comme nts HCL UA MICRO IF Routine 02/08/2006 12:18 PM Routine Medical Ex am Results for this POSITIVE APPRENTICE JOCKEY procedure are i n the results section. CL AFF MICRO Routine 02/08/2006 12:18 PM Results for this EXAM-URINE APPRENTICE JOCKEY procedure are i n the results section. HCL PAP THIN LAYER Routine 02/08/2006 12:00 AM Routine Medical Exam Results for this SCREEN APPRENTICE JOCKEY procedure are i n the results section. documented in this encounter Results (ABNORMAL) MICRO EXAM-URINE (02/08/2006 12:18 PM APPRENTICE JOCKEY) [facility] Method Time Signature WBC Urine 2-5 (A) 0 - 2 [facility] /HPF RBC Urine O - 2 0 - 2 [facility] /HPF Squamous EPI Many (A) FEW /LPF [facility] Bacteria Urine Moderate (A) NEG /HPF [facility] Specimen Anatomical Collection Method Collection Time Receive d Time (Source) Location / / Volume Laterality 02/08/2006 12:18 02/08/2006 PM APPRENTICE JOCKEY 12:19 PM APPRENTICE JOCKEY Dominick Higgins MD LABORATORY Performing Organization Address City/[facility]/ZIP Code Phon e Number [facility] (ABNORMAL) UA MICRO IF POSITIVE (02/08/2006 12:18 PM APPRENTICE JOCKEY) [facility] Method Time Signature Color Urine Yellow [facility] Appearance Urine Slightly [facility] Cloudy Glucose Urine Negative NEG mg/dL [facility] Bilirubin Urine Negative NEG [facility] Ketones Urine Negative NEG mg/dL [facility] Specific Reading 1.015 1.003 - [facility] Urine 1.035 Blood Urine Negative NEG [facility] pH Urine 7.5 (H) 5.0 - 7.0 [facility] pH Protein Albumin Negative NEG mg/dL [facility] Urine Urobilinogen 0.2 0.2 - 1.0 [facility] Urine EU/dL Nitrite Urine Negative NEG [facility] Leukocyte Large (A) NEG [facility] Esterase Urine Source Midstream [facility] Urine Specimen Anatomical Collection Method Collection Time Receive d Time (Source) Location / / Volume Laterality 02/08/2006 12:18 02/08/2006 PM APPRENTICE JOCKEY 12:19 PM APPRENTICE JOCKEY Dominick Higgins MD LABORATORY Performing Organization Address City/[facility]/ZIP [facility] Phon e Number [facility] A THIN LAYER PAP SCREEN (02/08/2006 12:00 AM APPRENTICE JOCKEY) Component Value Ref Test Analysis Performed At [facility] Method Time Signature PAP NIL COPATH Copath Report COPATH Patient Name: NATHALIE RODRIGUEZ MR#: [id number] Specimen #: [id number] Collected: 02/08/2006 Received: 02/12/2006 Reported: 02/13/2006 09:32 Ordering Phy(s): DOMINICK HIGGINS SPECIMEN/STAIN PROCESS: Pap thin layer prep screening ([facility]) ? Pap-Cyto x 1, Reflex HPV x 1 SOURCE: Cervical, endocervical ---- Pap thin layer prep screening ([facility]) SPECIMEN ADEQUACY: Satisfactory for evaluation. -Transformation zone component present. CYTOLOGIC INTERPRETATION: Negative for Intraepithelial Lesion or Malignancy Electronically signed out by: EVELIA Leyva (ASCP) [facility] CLINICAL HISTORY: LMP: 01-26-06 Oral Control Pill, Previous normal pap Date of Last Pap: 01-16-05, TESTING LAB LOCATION: [address] ??[id number] COLLECTION SITE: Client: ??[facility] Location: [facility] (S) Specimen (Source) Anatomical Collection Method Collection Time Re ceived Time Location / / Volume Laterality 02/08/2006 02/12/2006 9:32 AM APPRENTICE JOCKEY Dominick Higgins MD LABORATORY Performing Organization Address City/State/ZIP Code Phon e Number [facility] documented in this encounter Visit Diagnoses Diagnosis Routine general medical examination at a health care facility - Primary Mixed hyperlipidemia Unspecified essential hypertension Excessive or frequent menstruation documented in this encounter Care Teams Milk Vendor Relationship Specialty Start Date End Date Dominick Higgins MD PCP - General 08/17/02 05/01/16 [place] [address] documented as of this encounter
--- OUTSIDE RECORDS SUMMARY | 2022-01-17 10:55 | XMS_ITS | Encounter Summary ---
:1965 Author Organization [facility] Address [address] [place] [address]. [place] [address] Care Team Providers Name Role Phone Dominick Shanks MD Primary Care Provider [phone] Reason for Visit Reason Onset Date Comments Refill Request 12/06/2005 Lo/Ovral Encounter Details Date Type Department Care Team Description 12/06/2005 Refill [facility] Dominick Castro Refill Request 1447 [facility] MD Ivan (Lo/Ovral) [place] [address] XXX NO INFO FOUND [phone] [place] [address] (Wo rk) Social History Tobacco Use Types Packs/Day Years Used Date Smoking Tobacco: Never Alcohol Use Standard Drinks/Week Comments No 0 (1 standard drink = 0.6 oz pure alcoho l) Sex Assigned at Date Recorded Not on file documented as of this encounter Miscellaneous Notes Telephone Encounter - Sofia Chowdhury - 12/06/2005 11:21 AM CDT Rx called into pharmacy. Sofia Thomason CMA documented in this encounter Plan of Treatment Not on filedocumented as of this encounter Visit Diagnoses Not on filedocumented in this encounter Care Teams Reordering Clerk Relationship Specialty Start Date End Date Dominick Shanks MD PCP - General 7/7/03 3/21/17 [place] [address] documented as of this encounter
--- OUTSIDE RECORDS SUMMARY | 2022-01-17 10:55 | XMS_ITS | Encounter Summary ---
:1965 Author Organization [facility] Address [address] [place] [address]. [place] [address] Care Team Providers Name Role Phone Dominick Shanks MD Primary Care Provider [phone] Stan Lomas MD Primary Care Provider Rowan Rivas MD Unavailable [phone] Encounter Details Date Type Department Care Team Description 11/02/2005 [facility] Dominick Castro SCAN - HISTORY AND [facility]47 [facility] MD Ivan PHYSICAL (Primary Dx) [place] [address] XXX NO INFO FOUND [phone] [place] [address] (Wo rk) Social History Tobacco Use Types Packs/Day Years Used Date Smoking Tobacco: Never Smokeless Tobacco: Never Alcohol Use Standard Drinks/Week Comments No 0 (1 standard drink = 0.6 oz pure alcoho l) Sex Assigned at Date Recorded Not on file documented as of this encounter Plan of Treatment Not on filedocumented as of this encounter Visit Diagnoses Diagnosis SCAN - HISTORY AND PHYSICAL - Primary documented in this encounter Care Teams Senior Network Security Architect Relationship Specialty Start Date End Date Dominick Shanks, PCP - General 08/17/0205/01 [place] [address] Stan Lomas MD PCP - General Family Practice 05/02/16 [facility] [address] [place] [address] Rowan Rivas Assigned Heart and 02/12/21 MD [facility] Provider [address] [place] [address] documented as of this encounter
--- OUTSIDE RECORDS SUMMARY | 2022-01-17 10:56 | XMS_ITS | Encounter Summary ---
:1965 Author Organization [facility] Address [address] [place] [address]. [place] [address] Care Team Providers Name Role Phone Dominick Shanks MD Primary Care Provider [phone] Reason for Visit Reason Onset Date Comments Rectal Problem 10/09/2005 wants rx Encounter Details Date Type Department Care Team Description 10/09/2005 Telephone [facility] Dominick Shanks Rectal Pr oblem (wants Shea Love MD rx) 1447 [facility] XXX NO INFO FOUND [place] [address] XXX [phone] XXX [place] [address] (Wo rk) Social History Tobacco Use Types Packs/Day Years Used Date Smoking Tobacco: Never Alcohol Use Standard Drinks/Week Comments No 0 (1 standard drink = 0.6 oz pure alcoho l) Sex Assigned at Date Recorded Not on file documented as of this encounter Miscellaneous Notes Telephone Encounter - Hiral Conley - 10/09/2005 2:37 PM CDT rx called to pharmacy by montrell Conley RN documented in this encounter Plan of Treatment Not on filedocumented as of this encounter Visit Diagnoses Not on filedocumented in this encounter Care Teams Roving Sizer Relationship Specialty Start Date End Date Dominick Shanks MD PCP - General 08/17/02 05/01/16 [place] [address] documented as of this encounter
--- OUTSIDE RECORDS SUMMARY | 2022-01-17 10:56 | XMS_ITS | Encounter Summary ---
:1965 Author Organization [facility] Address [address] [place] [address] Care Team Providers Name Role Phone Dominick Shanks MD Primary Care Provider [phone] Encounter Details Date Type Department Care Team Description 10/18/2005 Orders Only [facility] Dominick Shanks EXCESSIVE MENSTRUATION Shea Love MD [address] [place] [address] XXX NO INFO FOUND [place] [address] XXX [phone] [place] [address] Social History Tobacco Use Types Packs/Day Years Used Date Smoking Tobacco: Never Alcohol Use Standard Drinks/Week Comments No 0 (1 standard drink = 0.6 oz pure alcoho l) Sex Assigned at Date Recorded Not on file documented as of this encounter Plan of Treatment Not on filedocumented as of this encounter Procedures Procedure Name Priority Date/Time Associated Diagnosis Comme [facility] PELVIC NON-OB, COMPLETE Routine 10/16/2005 Excessive M enstruation documented in this encounter Results SONO PELVIS COMPLETE (10/16/2005) Anatomical Region Laterality Modality Other Narrative This result has an attachment that is no t available. Dominick Shanks MD SPECIAL IMAGING STUDIES documented in this encounter Visit Diagnoses Diagnosis Excessive or frequent menstruation documented in this encounter Care Teams Trial Court Justice Relationship Specialty Start Date End Date Dominick Shanks MD PCP - General 08/17/02 05/01/16 XXX NO INFO FOUND XXX [place] [address] documented as of this encounter
--- OUTSIDE RECORDS SUMMARY | 2022-01-17 10:56 | XMS_ITS | Encounter Summary ---
:1965 Author Organization [facility] Address [address] [place] [address] Care Team Providers Name Role Phone Dominick Shanks MD Primary Care Provider [phone] Encounter Details Date Type Department Care Team Description 04/17/2005 Orders Only [facility] Dominick Shanks FAMILY HX BREAST MCIG Shea Love MD [address] [place] [address] XXX NO INFO FOUND [place] [address] XXX [phone] [place] [address] Social History Tobacco Use Types Packs/Day Years Used Date Smoking Tobacco: Never Alcohol Use Standard Drinks/Week Comments No 0 (1 standard drink = 0.6 oz pure alcoho l) Sex Assigned at Date Recorded Not on file documented as of this encounter Plan of Treatment Not on filedocumented as of this encounter Procedures Procedure Name Priority Date/Time Associated Diagnosis Comme nts C MAMMOGRAM, SCREENING Routine 04/02/2005 Family Hx Breast M alig documented in this encounter Results MAMMOGRAM, SCREENING (04/02/2005) P athologist Signature MAMMOGRAM Anatomical Region Laterality Modality Other Narrative This result has an attachment that is no t available. Dominick Shanks MD SPECIAL IMAGING STUDIES documented in this encounter Visit Diagnoses Diagnosis Family history of malignant neoplasm of breast documented in this encounter Care Teams Emergency Telecommunications Dispatcher Relationship Specialty Start Date End Date Dominick Shanks MD PCP - General 08/17/02 05/01/16 [place] [address] documented as of this encounter
--- OUTSIDE RECORDS SUMMARY | 2022-01-17 10:56 | XMS_ITS | Encounter Summary ---
:1965 Author Organization [facility] Address [address] [place] [address]. [place] [address] Care Team Providers Name Role Phone Dominick Shanks MD Primary Care Provider [phone] Reason for Visit Reason Onset Date Comments Medication Request 10/22/2005 Encounter Details Date Type Department Care Team Description 10/18/2005 Telephone [facility] Dominick Shanks Medicatio n Request () Shea Love MD [facility] XXX NO INFO FOUND [place] [address] XXX [phone] [place] [address] (Wo rk) Social History Tobacco Use Types Packs/Day Years Used Date Smoking Tobacco: Never Alcohol Use Standard Drinks/Week Comments No 0 (1 standard drink = 0.6 oz pure alcoho l) Sex Assigned at Date Recorded Not on file documented as of this encounter Miscellaneous Notes Telephone Encounter - Jodee Moses - 10/22/2005 10:49 AM CDT .rxc by johnathan WALLIS RN documented in this encounter Plan of Treatment Not on filedocumented as of this encounter Visit Diagnoses Not on filedocumented in this encounter Care Teams Officer Captain Relationship Specialty Start Date End Date Dominick Shanks MD PCP - General 08/17/02 05/01/16 XXX [place] [address] documented as of this encounter
--- OUTSIDE RECORDS SUMMARY | 2022-01-17 10:56 | XMS_ITS ---
:1965 Author Care Team Providers Name Role Phone Referral Primary Care Provider Unavailable Allergies Code Code System Name Reaction Severity Status Onset NKDA ? Medications Name Status Start Date Stop Date ? ? Cipro 500 mg tablet Active ? Not availabl e Take 1 tablet every 12 hours by oral route for 10 days. irbesartan 150 mg tablet Active ? Not alxe ilable TAKE 1 TABLET BY MOUTH ONCE DAILY nitrofurantoin monohydrate/macrocrystals 100 mg capsule Complete d ? 12/27/2021 TAKE 1 CAPSULE (100 MG) BY MOUTH EVERY 12 HOURS FOR 5 DAYS. MUST ADMINISTER WITH A MEAL OR FOOD simvastatin 40 mg tablet Active ? Not alex ilable TAKE 1 TABLET BY MOUTH ONCE DAILY AT BEDTIME sulfamethoxazole 800 mg-trimethoprim 160 mg tablet Completed ? 12/27/2021 TAKE 1 TABLET BY MOUTH TWICE DAILY Problems Name Status Onset Date Source ? Chronic Cystitis Active 12/27/2021 ? Procedures Date Name Performed by ? ? Total Hysterectomy Information not avai lable Results Lab Results Date Name Specimen Result Interpretation Description Value Range Status Address ? 12/27/2021 Urinalysis, ? pH-Status 5.5 ? ? [facility]: [address] [facility] [address] ? ? ? Leuko-Status Trace ? ? _ [facility]: [address] [facility] [address], [place] 12/27/2021 Urinalysis, ? No observation ? ? ? Dipstick recorded. Past Encounters Encounter Date Diagnosis Provider 12/27/2021 History of Recurrent Urinary Tract Matth ew Santo Roche MD: 1515 Infection; Chronic Cystitis [facility], [address], [place] [address], Ph. Social History Tobacco Smoking Status Never Smoker Vaccine List Vaccine Type COVID-19, mRNA, LNP-S, PF, 30 mcg/0.3 mL dose ([employer]) 06/27/2020 07/18/2020 02/20/2021 influenza, injectable, quadrivalent, pre servative free 11/29/2016 10/27/2017 11/10/2018 influenza, recombinant, quadrIvalent,inj ectable, preservative free 10/13/2019 10/21/2020 10/31/2021 influenza, seasonal, injectable 12/22/2002 12/12/2004 12/11/2005 01/06/2008 11/02/2008 10/29/2010 10/10/2011 11/01/2012 influenza, seasonal, injectable, preserv ative free 10/22/2014 11/05/2015 Tdap 06/27/2011 02/01/2021 Plan of Care Reminders Provider Appointments None recorded. ? ? Lab None recorded. ? ? Referral None recorded. ? ? Procedures None recorded. ? ? Surgeries None recorded. ? ? Imaging None recorded. ? ? Vitals Height Weight BMI 5 ft 9 in 207 lbs 30.6 kg/m2
--- OUTSIDE RECORDS SUMMARY | 2022-01-17 10:56 | XMS_ITS | Encounter Summary ---
:1965 Author Organization [employer] [facility] Address [address] [place] [address]. [place] [address] Care Team Providers Name Role Phone Dominick Shanks MD Primary Care Provider [phone] Reason for Visit Reason Comments Physical Blood Draw Encounter Details Date Type Department Care Team Description 01/16/2005 Office Visit [facility] Dominick Shanks ROUTINE G YN EXAMINATION (Primary Dx); Shea Love MD ROUTINE MEDICAL EXAM; 1447 [facility] XXX NO INFO FOUND MIXED HYPERLIPIDEMIA; [place] [address] XXX FAMILY HX BREAST MALIG [phone] [place] [address] Social History Tobacco Use Types Packs/Day Years Used Date Smoking Tobacco: Never Alcohol Use Standard Drinks/Week Comments No 0 (1 standard drink = 0.6 oz pure alcoho l) Sex Assigned at Date Recorded Not on file documented as of this encounter Last Filed Vital Signs Vital Sign Reading Time Taken Comments Blood Pressure 120/86 01/16/2005 9:30 AM MEDICAL ACCOUNTANT Pulse 76 01/16/2005 9:30 AM MEDICAL ACCOUNTANT Temperature 37 ??C (98.6 ??F) 01/16/2005 9:30 AM MEDICAL ACCOUNTANT Respiratory Rate - - Oxygen Saturation - - Inhaled Oxygen Concentration - - Weight 101.3 kg (223 lb 6.4 oz) 01/16/2005 9:30 AM MEDICAL ACCOUNTANT Height 176.5 cm (5' 9.5) 01/16/2005 9:30 AM MEDICAL ACCOUNTANT Body Mass Index 32.52 01/16/2005 9:30 AM MEDICAL ACCOUNTANT documented in this encounter Progress Notes Erika Elaine - 01/23/2005 11:02 AM CST 01-16-05-Nathalie Rodriguez-Annual exam. Doing very well. Still has her bus driving job. She notes a 6 lb weight gain and she is not very happy about that. She is going to start an exercise with a stepper.She is a non-smoker. ROS: HEENT negative. Cardiorespiratory negative. Good exercise tolerance. No cough. No sleep problems. GI negative. negative. She is a III. She has had a previous tubal. Neuromuscular negative. Hem negative. Neuro and skin negative. Exam, head and neck negative. Chest clear. Breasts no masses. Heart no murmur. Abdomen is soft and non-tender, no masses. Pelvic normal exam. Just started to get a little bleeding. Pap is taken. Uterusis posterior but mobile. No masses. Extremities, neuro, skin are all negative. Labs are drawn. No scripts. Will get mammogram. There is a strong family Hx of breast CA. There is also a family history of diabetes. Recheck in 1 year. Discussed dietary and exercise issues. CAL ACCOUNTANT Yarely May - 01/16/2005 9:30 AM MEDICAL ACCOUNTANT Addended by: YARELY MAY on: 02/02/2005 10:54:18 AM Modules accepted: Orders CAL ACCOUNTANT documented in this encounter Nursing Notes 01/16/2005 9:30 AM CST >> HIRAL CONLEY 01/16/2005 9:34 am Nathalie Rodriguez presents for px. Initial BP 120/86 Pulse 76 Temp 98.6 Ht 5' 9.5 (1.77m) Wt 223 lbs 6.4 oz (101.3kg) LMP 12/23/2004 Body Mass Index is 32.53 kg/(m^2).. BP completed using cuff size: large Hiral Conley RN documented in this encounter Plan of Treatment Not on filedocumented as of this encounter Procedures Procedure Name Priority Date/Time Associated Diagnosis Comme nts CL AFF CBC WITH Routine 01/16/2005 10:32 Routine Medical Exam Results for this PLATELETS AM MEDICAL ACCOUNTANT procedure are i n the results section. HCL BASIC Routine 01/16/2005 10:32 Routine Medical Exam Res ults for this METABOLIC PANEL AM MEDICAL ACCOUNTANT procedure ar e in the results section. CL AFF A.M.A. Routine 01/16/2005 10:32 Mixed Hyperlipidemia Re sults for this LIPID PANEL AM MEDICAL ACCOUNTANT procedure are i n the results section. HCL UA MICRO IF Routine 01/16/2005 10:31 Routine Medical Exam Results for this POSITIVE AM MEDICAL ACCOUNTANT procedure are i n the results section. CL AFF MICRO Routine 01/16/2005 10:31 Routine Medical Exam Res ults for this EXAM-URINE AM MEDICAL ACCOUNTANT procedure are i n the results section. HCL PAP THIN LAYER Routine 01/16/2005 12:00 Routine Stations Superintendent Examin ation Results for this SCREEN AM MEDICAL ACCOUNTANT procedure are i n the results section. documented in this encounter Results A.M.A. BASIC METABOLIC PANEL (01/16/2005 10:32 AM MEDICAL ACCOUNTANT) P athologist Signature Sodium 143 133 - 144 [facility] mmol/L [facility] Potassium 3.9 3.4 - 5.3 [facility] mmol/L [facility] Chloride 108 94 - 109 [facility] mmol/L [facility] Carbon Dioxide 24 20 - 32 [facility] mmol/L [facility] Anion Gap 11 6 - 17 [facility] mmol/L [facility] Glucose 96 60 - 110 [facility] mg/dL [facility] Urea Nitrogen 10 5 - 24 [facility] mg/dL [facility] Creatinine 0.90 0.60 - [facility] 1.30 mg/dL [facility] GFR Estimate 74 >60 [facility] mL/min/1.7 [facility] m2 LAB GFR Estimate If >80 >60 [facility] Black mL/min/1.7 [facility] m2 LAB Calcium 9.2 8.5 - 10.4 [facility] mg/dL [facility] Specimen Anatomical Collection Method Collection Time Receive d Time (Source) Location / / Volume Laterality 01/16/2005 10:32 01/16/2005 AM MEDICAL ACCOUNTANT 10:39 AM MEDICAL ACCOUNTANT Dominick Shanks MD LABORATORY Performing Organization Address City/State/ZIP Code Phon e Number [facility] [address] [place] [address] [facility] (ABNORMAL) CBC WITH PLATELETS (01/16/2005 10:32 AM MEDICAL ACCOUNTANT) Analysis Performed At Patho logist Time Signature WBC 7.7 4.0 - 11.0 [facility] 10e9/L RBC Count 5.39 (H) 3.8 - 5.2 [facility] 10e12/L Hemoglobin 15.3 11.7 - [facility] 15.7 g/dL Hematocrit 46.9 35.0 - [facility] 47.0 % MCV 87 78 - 100 [facility] fl MCH 28.4 26.5 - [facility] 33.0 pg MCHC 32.6 32.0 - [facility] 36.0 g/dL RDW 13.7 10.0 - [facility] 15.0 % Platelet Count 264 150 - 450 [facility] 10e9/L Specimen Anatomical Collection Method Collection Time Receive d Time (Source) Location / / Volume Laterality 01/16/2005 10:32 01/16/2005 AM MEDICAL ACCOUNTANT 10:39 AM MEDICAL ACCOUNTANT Dominick Shanks MD LABORATORY Performing Organization Address City/State/ZIP Code Phon e Number [facility] (ABNORMAL) A.M.A. LIPID PANEL (01/16/2005 10:32 AM MEDICAL ACCOUNTANT) P athologist Signature Cholesterol 215 (H) 0 - 200 [facility] mg/dL [facility] Comment: LDL Cholesterol is the primary guide to therapy: LDL-cholesterol goal in high risk patients is <100 mg/dL and in very high risk patients is <70 mg/dL. The NCEP recommends further evaluation of: patients with cholesterol <200 mg/dL if additional risk factors are present, cholesterol >240 mg/dL, triglycerides >150 mg/dL, or HDL <40 mg/dL. Triglycerides 97 0 - 150 mg/dL [facility] HDL Cholesterol 44 (L) 50 - 110 mg/dL [facility] LDL Cholesterol Calculated 152 (H) 0 - 129 mg/dL [facility] Comment: LDL Cholesterol is the primary guide to therapy: LDL-cholesterol goal in high risk patients is <100 mg/dL and in very high risk patients is <70 mg/dL. VLDL-Cholesterol 19 0 - 30 mg/dL [facility] Cholesterol/HDL Ratio 4.9 0.0 - 5.0 [facility] Specimen Anatomical Collection Method Collection Time Receive d Time (Source) Location / / Volume Laterality 01/16/2005 10:32 01/16/2005 AM MEDICAL ACCOUNTANT 10:39 AM MEDICAL ACCOUNTANT Dominick Shanks MD LABORATORY Performing Organization Address City/State/ZIP Code Phon e Number [facility] [address] [place] [address] [facility] (ABNORMAL) MICRO EXAM-URINE (01/16/2005 10:31 AM MEDICAL ACCOUNTANT) [facility] Method Time Signature WBC Urine 5-10 (A) 0 - 2 [facility] /HPF RBC Urine O - 2 0 - 2 [facility] /HPF Squamous EPI Moderate (A) FEW /LPF [facility] Bacteria Urine Few (A) NEG /HPF [facility] Specimen Anatomical Collection Method Collection Time Receive d Time (Source) Location / / Volume Laterality 01/16/2005 10:31 01/16/2005 AM MEDICAL ACCOUNTANT 10:39 AM MEDICAL ACCOUNTANT Dominick Shanks MD LABORATORY Performing Organization Address City/State/ZIP Code Phon e Number [facility] (ABNORMAL) UA MICRO IF POSITIVE (01/16/2005 10:31 AM MEDICAL ACCOUNTANT) [facility] Method Time Signature Color Urine Yellow [facility] Appearance Urine Clear [facility] Glucose Urine Negative NEG mg/dL [facility] Bilirubin Urine Negative NEG [facility] Ketones Urine Negative NEG mg/dL [facility] Specific [place] 1.015 1.003 - [facility] Urine 1.035 Blood Urine Trace (A) NEG [facility] pH Urine 6.5 5.0 - 7.0 [facility] pH Protein Albumin Negative NEG mg/dL [facility] Urine Urobilinogen 0.2 0.2 - 1.0 [facility] Urine EU/dL Nitrite Urine Negative NEG [facility] Leukocyte Large (A) NEG [facility] Esterase Urine Source Midstream [facility] Urine Specimen Anatomical Collection Method Collection Time Receive d Time (Source) Location / / Volume Laterality 01/16/2005 10:31 01/16/2005 AM MEDICAL ACCOUNTANT 10:39 AM MEDICAL ACCOUNTANT Dominick Shanks MD LABORATORY Performing Organization Address City/State/ZIP Code Phon e Number [facility] A THIN LAYER PAP SCREEN (01/16/2005 12:00 AM MEDICAL ACCOUNTANT) Component Value Ref Test Analysis Performed At [facility] Range Method Time Signature PAP NIL COPATH Copath Report COPATH Patient Name: NATHALIE RODRIGUEZ MR#: [id number] Specimen #: [id number] Collected: 01/16/2005 Received: 01/17/2005 Reported: 01/18/2005 14:21 Ordering Phy(s): DOMINICK SHANKS SPECIMEN/STAIN PROCESS: Pap thin layer prep screening ([facility]) ? Pap-Cyto x 1, Reflex HPV x 1 SOURCE: Cervical ---- Pap thin layer prep screening ([facility]) SPECIMEN ADEQUACY: Satisfactory for evaluation. -Transitional zone component present. CYTOLOGIC INTERPRETATION: Negative for Intraepithelial Lesion or Malignancy Electronically signed out by: EVELIA Leyva (ASCP) [facility] CLINICAL HISTORY: LMP: 12-23-04 Previous normal pap Date of Last Pap: 10-15, TESTING LAB LOCATION: [address] ??[address] COLLECTION SITE: Client: ??[facility] Location: [facility] (S) Specimen (Source) Anatomical Collection Method Collection Time Re ceived Time Location / / Volume Laterality 01/16/2005 01/17/2005 9:13 AM MEDICAL ACCOUNTANT Dominick Shanks MD LABORATORY Performing Organization Address City/State/ZIP Code Phon e Number [facility] documented in this encounter Visit Diagnoses Diagnosis Routine gynecological examination - Prim gaby Routine general medical examination at a health care facility Mixed hyperlipidemia Family history of malignant neoplasm of breast documented in this encounter Care Teams Autopsy Pathologist Relationship Specialty Start Date End Date Dominick Shanks MD PCP - General 08/17/02 05/01/16 [place] [address] documented as of this encounter
--- OUTSIDE RECORDS SUMMARY | 2022-01-17 10:56 | XMS_ITS | Encounter Summary ---
:1965 Author Organization [facility] Address [address] [place] [address]. [place] [address] Care Team Providers Name Role Phone Dominick Shanks MD Primary Care Provider [phone] Reason for Visit Reason Comments Pharyngitis Encounter Details Date Type Department Care Team Description 04/03/2004 Office Visit [facility][note 2] ACUTE PHARYNGITIS (Primary [address] [facility] Dx) [place], [place] [id number] Social History Tobacco Use Types Packs/Day Years Used Date Smoking Tobacco: Never Assessed Sex Assigned at Date Recorded Not on file documented as of this encounter Last Filed Vital Signs Vital Sign Reading Time Taken Comments Blood Pressure - - Pulse - - Temperature 36.9 ??C (98.4 ??F) 04/03/2004 4:30 PM MACHINED PARTS QUALITY INSPECTOR Respiratory Rate - - Oxygen Saturation - - Inhaled Oxygen Concentration - - Weight 99.8 kg (220 lb) 04/03/2004 4:30 PM MACHINED PARTS QUALITY INSPECTOR Height - - Body Mass Index - - documented in this encounter Plan of Treatment Not on filedocumented as of this encounter Procedures Procedure Name Priority Date/Time Associated Diagnosis Comme nts HCL STREP GROUP A Routine 04/03/2004 4:58 PM Acute Pharyngitis Results for this AG (RAPID) MACHINED PARTS QUALITY INSPECTOR procedure are i n the results section. HCL BETA STREP Routine 04/03/2004 4:24 PM Acute Pharyngitis Re sults for this CONFIRM MACHINED PARTS QUALITY INSPECTOR procedure are i n the results section. HCL STREP GROUP A Routine 04/03/2004 4:23 PM Acute Pharyngitis Results for this AG (RAPID) MACHINED PARTS QUALITY INSPECTOR procedure are i n the results section. documented in this encounter Results STREP GROUP A AG (RAPID) (04/03/2004 4:58 PM MACHINED PARTS QUALITY INSPECTOR) Component Value Ref Test Analysis Performed At [facility] Range Method Time Signature Specimen Throat [facility] Description Rapid Strep A NEGATIVE: No Group A strepto coccal antigen detected by immunoassay, await [facility] Screen culture report. Report status FINAL [id number] [facility] Specimen Anatomical Collection Method Collection Time Receive d Time (Source) Location / / Volume Laterality 04/03/2004 4:58 PM 5 5:05 MACHINED PARTS QUALITY INSPECTOR PM MACHINED PARTS QUALITY INSPECTOR Dominick Shanks MD LABORATORY Performing Organization Address City/State/ZIP Code Phon e Number [facility] BETA STREP CONFIRM (04/03/2004 4:24 PM MACHINED PARTS QUALITY INSPECTOR) Component Value Ref Test Analysis Performed At [facility] Range Method Time Signature Specimen Throat [facility] Description Culture Micro No Beta [facility] Streptococcus isolated Report status FINAL [id number] [facility] Specimen Anatomical Collection Method Collection Time Receive d Time (Source) Location / / Volume Laterality 04/03/2004 4:24 PM 5 4:31 MACHINED PARTS QUALITY INSPECTOR PM MACHINED PARTS QUALITY INSPECTOR Dominick Shanks MD LABORATORY Performing Organization Address City/State/ZIP Code Phon e Number [facility] STREP GROUP A AG (RAPID) (04/03/2004 4:23 PM MACHINED PARTS QUALITY INSPECTOR) [facility] Method Time Signature Specimen Throat [facility] Description [facility] Rapid Strep A Test [place] Screen canceled - [facility] order LAB entry error Charge credited Report status FINAL [place] [id number] [facility] Specimen Anatomical Collection Method Collection Time Receive d Time (Source) Location / / Volume Laterality 04/03/2004 4:23 PM 5 4:30 MACHINED PARTS QUALITY INSPECTOR PM MACHINED PARTS QUALITY INSPECTOR Dominick Shanks MD LABORATORY Performing Organization Address City/State/ZIP Code Phon e Number [facility] [address] [place] [address] [facility] documented in this encounter Visit Diagnoses Diagnosis Acute pharyngitis - Primary documented in this encounter Care Teams White Work Cleaner Relationship Specialty Start Date End Date Dominick Shanks MD PCP - General 08/17/02 05/01/16 [place] [address] documented as of this encounter
--- OUTSIDE RECORDS SUMMARY | 2022-01-17 10:56 | XMS_ITS | Encounter Summary ---
:1965 Author Reason for Visit UTI Assessment and Plan 1. History of recurrent urinary tract i nfection ? urinalysis, dipstick 2. Chronic cystitis - I suspect that she has a chronic, und ertreated cystitis rather than true pattern of recurrent infections with different pathogens. She had no prior issues before this year. She is had multiple short courses of Macrobid which is not bacteri ocidal. I recommended we send the urine today for Pathnostics culture. If this is positive for infection, I would treat her with a longer course of a bacteriocidal antibiotic. -If the culture today is negative, I adv ised that she call us again when she has a significant flareup and we can send out a Pathnostics kit to her home rather than having it treated by her local clinic. She has my business card. Discussion Note: None recorded.Patient educational handouts: No information available. Plan of Care Reminders Provider Appointments None recorded. ? ? Lab Urinalysis, [facility]stick [facility] Referral None recorded. ? ? Procedures None recorded. ? ? Surgeries None recorded. ? ? Imaging None recorded. ? ? Medications Name Start Date ? ? Cipro 500 mg tablet ? Take 1 tablet every 12 hours by oral route for 10 day s. irbesartan 150 mg tablet ? TAKE 1 TABLET BY MOUTH ONCE DAILY simvastatin 40 mg tablet ? TAKE 1 TABLET BY MOUTH ONCE DAILY AT BEDTIME Medications Administered None recorded. Vitals Height Weight BMI 5 ft 9 in 207 lbs 30.6 kg/m2 Results Lab Results Date Name Specimen Result Interpretation Description Value Range Status Address ? 12/27/2021 Urinalysis, ? pH-Status 5.5 ? ? [facility]: [address] [facility] [address], [place] ? ? ? Leuko-Status Trace ? ? [facility]: [address] [facility] [address], [place] Allergies Code Code System Name Reaction Severity Onset NKDA ? ? ? Problems Name Status Onset Date Source ? Chronic Cystitis Active 12/27/2021 ? Procedures Date Name Performed by ? ? Total Hysterectomy Information not avai lable Vaccine List Vaccine Type COVID-19, mRNA, LNP-S, PF, 30 mcg/0.3 mL dose ([employer]) 06/27/2020 07/18/2020 02/20/2021 influenza, injectable, quadrivalent, pre servative free 11/29/2016 10/27/2017 11/10/2018 influenza, recombinant, quadrIvalent,inj ectable, preservative free 10/13/2019 10/21/2020 10/31/2021 influenza, seasonal, injectable 12/22/2002 12/12/2004 12/11/2005 01/06/2008 11/02/2008 10/29/2010 10/10/2011 11/01/2012 influenza, seasonal, injectable, preserv ative free 10/22/2014 11/05/2015 Tdap 06/27/2011 02/01/2021 Social History Tobacco Smoking Status Never Smoker What was the date of your most recent tobacco screening? Do you or have you ever used any other forms of tobacco or n icotine? N Family History Relation Problem Onset Age of Age Notes Father Family history of cancer of (No Information) N/A (No Notes) colon Mother Family history of cancer (No Information) N/A Multiple Myloma Functional Status Unknown. Past Encounters Encounter Date Diagnosis Provider 12/27/2021 History of Recurrent Urinary Tract Matth ew Satno Roche MD: 1515 Infection; Chronic Cystitis [facility], [address], [place] [phone], Ph. History of Present Illness Note: <div>New patient referred for recurrent urinary tract infections. I reviewed the recent clinic note from Sho Fonseca CNP from [facility] dated 10/19/2021. She has had recurrent flareups of frequency, nocturia, urethral throbbing pain for the last 6 months. She is been treated 3 separate times with short courses of Macrobid. She also reports having a culture done through [facility], which is not available to me, which showed E. coli. Over the last week she has had recurrent symptoms. She had no prior UTIs for the past 20 years up until April of this year. She reports normal force of stream. Urinalysis today shows trace leukocytes, otherwise negative. Postvoid residual 63 mL.</div> Review of Systems ? Comprehensive General Adult ROS Reported By: Patient Constitutional: Constitutional: no fever, no chills Eyes: Eyes: no dry eyes, no vision change, no irritation Endocrine: Endocrine: no fatigue, no in creased thirst Cardiovascular: Cardiovascular: no chest angelo n, no palpitations Integumentary: Skin: no rashes, no change i n skin color Respiratory: Respiratory: no wheezing, no cough, no shortness of breath Genitourinary: Genitourinary: no incontinen ce, no difficulty urinating Physical Exam ? Notes: <div>General: No acute distr ess, well developed/well nourished
Resp: respirations non labored, no audible wheeze
MSK: no gross deformities
Neuro: moving all extremities, grossly non focal
Psych: normal mood and affect, no c onfusion</div>
--- OUTSIDE RECORDS SUMMARY | 2022-01-17 10:56 | XMS_ITS | Encounter Summary ---
:1965 Author Organization [facility] Address [address] [place] [address]. [place] [address] Care Team Providers Name Role Phone Dominick Shanks MD Primary Care Provider [phone] Reason for Visit Reason Onset Date Comments Medication Request 06/19/2004 has hempalmira's Encounter Details Date Type Department Care Team Description 06/19/2004 Telephone [facility] Dominick Shanks Medicatio n Request (has Shea Love MD hemm's) [address] [facility] XXX NO INFO FOUND [place] [address] XXX [phone] [place] [address] (Wo rk) Social History Tobacco Use Types Packs/Day Years Used Date Smoking Tobacco: Never Assessed Sex Assigned at Date Recorded Not on file documented as of this encounter Miscellaneous Notes Telephone Encounter - Rachel Weber - 06/19/2004 11:01 AM CDT called to pharm by [facility] [phone] Rachel Weber R.N. documented in this encounter Plan of Treatment Not on filedocumented as of this encounter Visit Diagnoses Not on filedocumented in this encounter Care Teams Riveter Hand Relationship Specialty Start Date End Date Dominick Shanks MD PCP - General 08/17/02 05/01/16 [place] [address] documented as of this encounter
--- OUTSIDE RECORDS SUMMARY | 2022-01-17 10:56 | XMS_ITS | Encounter Summary ---
:1965 Author Organization [facility] Address [address] [place] [address]. [place] [address] Care Team Providers Name Role Phone Dominick Shanks MD Primary Care Provider [phone] Encounter Details Date Type Department Care Team Description 11/04/2003 Abstract [facility] Dominick Castro MD [address] [facility] XXX NO INFO FOUND XXX [place] [address] XXX [phone] [place] [address] (Wo rk) Social History Tobacco Use Types Packs/Day Years Used Date Smoking Tobacco: Never Assessed Sex Assigned at Date Recorded Not on file documented as of this encounter Plan of Treatment Not on filedocumented as of this encounter Visit Diagnoses Not on filedocumented in this encounter Care Teams Unloading Checker Relationship Specialty Start Date End Date Dominick Sahnks MD PCP - General 08/17/02 05/01/16 XXX NO INFO FOUND XXX XXX [place] [address] documented as of this encounter
--- OUTSIDE RECORDS SUMMARY | 2022-01-17 10:56 | XMS_ITS | Encounter Summary ---
:1965 Author Organization [facility] Address [address] [place] [address]. [place] [address] Care Team Providers Name Role Phone Dominick Shanks MD Primary Care Provider [phone] Encounter Details Date Type Department Care Team Description 11/10/2003 Abstract [facility] Emily Weeks [address] [place] [address] [id number] Social History Tobacco Use Types Packs/Day Years Used Date Smoking Tobacco: Never Assessed Sex Assigned at Date Recorded Not on file documented as of this encounter Plan of Treatment Not on filedocumented as of this encounter Procedures Procedure Name Priority Date/Time Associated Diagnosis Comme nts ABSTRACT MAMMO-NO CHARGE Routine 08/11/1999 documented in this encounter Results ABSTRACT MAMMO-NO CHARGE (08/11/1999) Anatomical Region Laterality Modality Other Emily Cardenas GENERAL IMAGING documented in this encounter Visit Diagnoses Not on filedocumented in this encounter Care Teams Housekeeping Assistant Relationship Specialty Start Date End Date Dominick Shanks MD PCP - General 08/17/02 05/01/16 [place] [address] documented as of this encounter
--- OUTSIDE RECORDS SUMMARY | 2022-01-17 10:56 | XMS_ITS | Encounter Summary ---
:1965 Author Organization [facility] Address [address] [place] [address]. [place] [address] Care Team Providers Name Role Phone Dominick Sahnks MD Primary Care Provider [phone] Reason for Visit Reason Comments Abnormal Bleeding Problem Encounter Details Date Type Department Care Team Description 10/03/2005 Office Visit [facility] Tobin Cummins, ANTOINETTEI VE MENSTRUATION Shea HOFFMAN (Primary Dx) [address] [place] [address] [place] [phone] [place] [phone] Social History Tobacco Use Types Packs/Day Years Used Date Smoking Tobacco: Never Alcohol Use Standard Drinks/Week Comments No 0 (1 standard drink = 0.6 oz pure alcoho l) Sex Assigned at Date Recorded Not on file documented as of this encounter Last Filed Vital Signs Vital Sign Reading Time Taken Comments Blood Pressure 130/78 10/03/2005 9:30 AM CDT Pulse - - Temperature 35.8 ??C (96.5 ??F) 10/03/2005 9:30 AM CDT Respiratory Rate - - Oxygen Saturation - - Inhaled Oxygen Concentration - - Weight 101.2 kg (223 lb) 10/03/2005 9:30 AM CDT Height - - Body Mass Index 32.46 01/16/2005 9:30 AM REST ROOM ATTENDANT documented in this encounter Progress Notes Tobin Cummins H - 10/03/2005 5:48 PM CDT Pt. complains of heavy vaginal bleeding since 09/28/2005 with clots. Tried Motrin over the weekend, bleeding slowed down, then started again this morning. No pain. No lightheadedness. LMP beginning of August. Menses has been normal in the past, and not on any hormones, had BTL and spouse had vasectomy. OBJECTIVE: BP 130/78 Temp (Src) 96.5 (Tympanic) Wt 223 lbs (101.2kg) No exam done today due to bleeding. ASSESSMENT: DUB PLAN: Recommanded cascade OCPs for heavy bleeding. 4 tabs for day one, 3 tabs for day 2,3,4 and 2 tabs forday 5,6.7, then 1 tab daily. Discussed side effects with OCPs taking, including GI upset, and blood clots. The visit was spent on counseling, total time 15 minutes. documented in this encounter Nursing Notes 10/03/2005 9:30 AM CDT >> BLANCA BARRAGAN 10/03/2005 9:22 am Nathalie Bowen presents for bleeding. Initial BP 130/78 Temp (Src) 96.5 (Tympanic) Wt 223 lbs (101.2kg) Estimated Body mass index is 32.47 kg/(m^2) as calculated from: Height of 5' 9.5 (1.765 m) as of 01/16/05 Weight of 223 lbs (101.152 kg) as of this encounter. BP completed using cuff size: regular Blanca Barragan CMA documented in this encounter Plan of Treatment Not on filedocumented as of this encounter Procedures Procedure Name Priority Date/Time Associated Diagnosis Comme nts HCL HEMOGLOBIN Routine 10/03/2005 10:19 Excessive Results f or this NONLAB AM CDT Menstruation procedure are i n the results section. documented in this encounter Results HGB (10/03/2005 10:19 AM CDT) P athologist Signature Hemoglobin 14.9 11.7 - 15.7 MISYS g/dL Specimen Anatomical Collection Method Collection Time Receive d Time (Source) Location / / Volume Laterality 10/03/2005 10:19 10/03/2005 AM CDT 10:26 AM CDT Tobin Cummins MD LABORATORY Performing Organization Address City/State/ZIP Code Phon e Number MISYS documented in this encounter Visit Diagnoses Diagnosis Excessive or frequent menstruation - Roopa gonzalez documented in this encounter Care Teams Seat Mender Relationship Specialty Start Date End Date Dominick Shanks MD PCP - General 08/17/02 05/01/16 [place] [address] documented as of this encounter
--- OUTSIDE RECORDS SUMMARY | 2022-01-17 10:56 | XMS_ITS | Encounter Summary ---
:1965 Author Organization [facility] Address [address] [place] [address]. [place] [address] Care Team Providers Name Role Phone Dominick Shanks MD Primary Care Provider [phone] Stan Lomas MD Primary Care Provider Rowan Rivas MD Unavailable [phone] Encounter Details Date Type Department Care Team Description 11/02/2005 [facility] Dominick Castro SCAN - OPERATIVE REPORT 1447 [facility] MD Ivan (Primary Dx) [place] [address] XXX NO INFO FOUND [phone] [place] [address] (Wo rk) Social History Tobacco Use Types Packs/Day Years Used Date Smoking Tobacco: Never Smokeless Tobacco: Never Alcohol Use Standard Drinks/Week Comments No 0 (1 standard drink = 0.6 oz pure alcoho l) Sex Assigned at Date Recorded Not on file documented as of this encounter Plan of Treatment Not on filedocumented as of this encounter Visit Diagnoses Diagnosis SCAN - OPERATIVE REPORT - Primary documented in this encounter Care Teams Hand Welt Butter Relationship Specialty Start Date End Date Dominick Shanks, PCP - General 08/17/0205/01 [place] [address] Stan Lomas MD PCP - General Family Practice 05/02/16 [facility] [address] [place] [address] Rowan Rivas Assigned Heart and 02/12/21 MD [facility] Provider [address] [place] [address] documented as of this encounter
--- OUTSIDE RECORDS SUMMARY | 2022-01-17 10:56 | XMS_ITS | Encounter Summary ---
:1965 Author Organization [facility] Address [address] [place] [address]. [place] [address] Care Team Providers Name Role Phone Dominick Shanks MD Primary Care Provider [phone] Reason for Visit Reason Comments Abnormal Uterine Bleeding Heavy/clotting Encounter Details Date Type Department Care Team Description 10/16/2005 Office Visit [facility] Dominick Shanks EXCESSIVE MENSTRUATION Shea Love MD (Primary Dx) 1447 [facility] XXX NO INFO FOUND [place] [address] XXX [phone] XXX [place] [address] Social History Tobacco Use Types Packs/Day Years Used Date Smoking Tobacco: Never Alcohol Use Standard Drinks/Week Comments No 0 (1 standard drink = 0.6 oz pure alcoho l) Sex Assigned at Date Recorded Not on file documented as of this encounter Last Filed Vital Signs Vital Sign Reading Time Taken Comments Blood Pressure 160/86 10/16/2005 9:30 AM CDT Pulse - - Temperature 37.7 ??C (99.9 ??F) 10/16/2005 9:30 AM CDT Respiratory Rate - - Oxygen Saturation - - Inhaled Oxygen Concentration - - Weight 102.2 kg (225 lb 3.2 oz) 10/16/2005 9:30 AM CDT Height - - Body Mass Index 32.78 01/16/2005 9:30 AM COCKTAIL SERVER documented in this encounter Progress Notes Rosenda Rodriguez - 10/23/2005 9:52 AM CDT 10-16-05-Nathalie Bowen-Nathalie returns because of heavy bleeding. She has been on control, Ortho 777 with some response. She has been taking 3 pills a day but still is passing clots. Now having some cramping. She has had a previous tubal. She is positive she is not . On exam, there is a moderate amount of blood in the vaginal canal. Uterus is posterior, somewhat tender. It is boggy. Can feel no adnexal masses. US scheduled. Will schedule a D&C as soon as her job will allow. Possibly do this weekend. Hgb. was excellent last visit and this is not repeated. documented in this encounter Nursing Notes 10/16/2005 9:30 AM CDT >> SHERRI SOMMER 10/16/2005 9:38 am Nathalie Bowen presents for heavy and clotting vaginal flow since 09-23-05. Initial BP 160/86 Temp (Src) 99.9 (Tympanic) Wt 225 lbs 3.2 oz (102.2kg) Estimated Body mass index is 32.79 kg/(m^2) as calculated from: Height of 5' 9.5 (1.765 m) as of 01/16/05 Weight of 225 lbs 3.2 oz (102.150 kg) as of this encounter. BP completed using cuff size: large. Sherri Sommer/ CAMILA documented in this encounter Plan of Treatment Not on filedocumented as of this encounter Visit Diagnoses Diagnosis Excessive or frequent menstruation - Roopa gonzalez documented in this encounter Care Teams Cultural Centre Manager Relationship Specialty Start Date End Date Dominick Shanks MD PCP - General 08/17/02 05/01/16 [place] [address] documented as of this encounter
--- OUTSIDE RECORDS SUMMARY | 2022-01-17 10:56 | XMS_ITS | Clinical Summary ---
:1965 Author Organization [facility] [place] [address] Care Team Providers Name Role Phone Dominick Shanks MD Primary Care Provider [phone] Allergies No known active allergies Medications Medication Sig Dispensed Refills Start Date End Date Status COZAAR 25 MG TAB take 1 tablet (25 0 Active mg) by oral route once daily CRESTOR 10 MG TAB take 1 tablet (10 0 Active mg) by oral route once daily MULTIVITAMIN TAB take 1 tablet by 0 Active oral route once daily with food IBUPROFEN 200 MG TAB Take 1 to 3 tablets 60 0 7 Active by mouth every 6 hours as needed for pain ESTRADIOL 1 MG TAB Take 1 tablet by 30 1 08/20/2006 Active mouth daily for 1 month. Active Problems Problem Noted Date Excessive or frequent menstruation 08/07/2006 Family History Medical History Relation Name Comments Cancer-breast Maternal Aunt pre salud Cancer-colon No Family History Cancer-ovarian No Family History Cancer-prostate No Family History Relation Name Status Comments Maternal Aunt Social History Tobacco Use Types Packs/Day Years Used Date Never Smoker Smokeless Tobacco: Never Used Sex Assigned at Date Recorded Not on file Obstetrics History Last Filed Vital Signs Vital Sign Reading Time Taken Comments Blood Pressure 135/78 05/24/2018 9:18 AM CDT Pulse 86 05/24/2018 9:18 AM CDT Temperature 36.9 ??C (98.5 ??F) 05/24/2018 9:18 AM CDT Respiratory Rate 16 05/24/2018 9:18 AM CDT Oxygen Saturation 94% 05/24/2018 9:18 AM CDT Inhaled Oxygen Concentration - - Weight 97 kg (213 lb 12.8 oz) 05/24/2018 9:18 AM CDT Height 175.3 cm (5' 9) 08/19/2006 6:23 AM CDT Body Mass Index - - Plan of Treatment Not on file Results Not on filefrom Last 3 Months Insurance Payer Benefit Plan / Subscriber ID Effective Dates Phone Addre ss Type Group [employer] OF [id number] 2016-Present [address] [address] [place] [address] Guarantor Name Account Type Relation to Date of Phone Billing Patient Address Nathalie Bowen Personal/Family Self 1965 [address] (Home) [place] [phone] (Work) Advance Directives Latest Code Status on File Code Status Date Activated Date Inactivated Comments Full Code 08/19/2006 6:15 AM 08/19/2006 10:37 AM Care Teams Ash Collector Relationship Specialty Start Date End Date Dominick Shanks MD PCP - General 08/15/06 [facility] [place] Garcia [id number]
--- OUTSIDE RECORDS SUMMARY | 2022-01-17 10:56 | XMS_ITS | Encounter Summary ---
:1965 Author Organization [facility] Address [address] [place] [address]. [place] [address] Care Team Providers Name Role Phone Dominick Shanks MD Primary Care Provider [phone] Reason for Visit Reason Comments Flu Shot Encounter Details Date Type Department Care Team Description 12/12/2004 Allied Health[facility] Dominick Castro Flu Shot Visit 1447 [facility] [place] [address] XXX NO INFO FOUND [phone] [place] [address] (Wo rk) Social History Tobacco Use Types Packs/Day Years Used Date Smoking Tobacco: Never Assessed Sex Assigned at Date Recorded Not on file documented as of this encounter Plan of Treatment Not on filedocumented as of this encounter Visit Diagnoses Diagnosis Need for prophylactic vaccination and in oculation against influenza - Primary documented in this encounter Care Teams Exhauster Engineer Relationship Specialty Start Date End Date Dominick Shanks MD PCP - General 08/17/02 05/01/16 XXX [place] [address] documented as of this encounter
[2022-01-17 22:24] LABS: Chloride* 110 mmol/L (96-114); Potassium* 3.8 mmol/L (3.6-5.1); Sodium* 143 mmol/L (135-149)
[2022-01-17 22:26] LABS: Cholesterol* 167 mg/dL (90-199); Creatinine* 0.7 mg/dL (0.5-1.5); Estimated Glomerular Filt Rate 101 ml/min
[2022-01-17 22:27] LABS: Blood Urea Nitrogen* 17 mg/dL (7-30); Calcium* 9.2 mg/dL (8.4-10.6); Carbon Dioxide* 27 mmol/L (20-32); Glucose* 89 mg/dL (60-115); HDL Cholesterol* 50 mg/dL (>=50); LDL Cholesterol Calculated 98 mg/dL (<100); Triglycerides* 93 mg/dL (40-149)
== END 2022-01-17 10:51 | disposition home or self-care (01) ==
PROVIDERS: PCP Family Medicine; Visit Provider Family Medicine
DX: I10 Essential (primary) hypertension (principal); E78.5 Hyperlipidemia, unspecified
CPT/HCPCS: 80048; 80061

== ENCOUNTER 2022-04-12 08:46 | Outpatient (CLI) | payer BC, SELFPAY ==
--- NOTE | 2022-04-12 09:15 | CRLHL7_ITS ---
For Patients: As a result of the Century Cures Act, medical imaging exams and procedure reports are released immediately into your electronic medical record. You may view this report before your referring provider. If you have questions, please contact your health care provider. BILATERAL SCREENING MAMMOGRAM WITH COMPUTER-AIDED DETECTION TECHNIQUE: CC and MLO views were obtained. These mammographic images have been obtained using full-field digital technique. These mammographic images were interpreted with the benefit of computer-aided detection. COMPARISON FILM: 04/22/19, 03/28/17, 03/24/15. FINDINGS: The breasts are almost entirely fatty IMPRESSION: There is no radiographic evidence for malignancy. ASSESSMENT: BI-RADS Category 1: Negative RECOMMENDATION: Routine screening mammogram in 1 year. A lay language report of this examination will be provided to the patient. Greg Whitten M.D. Diagnostic/Nuclear Medicine Radiologist [email or web address] DENYS/Dictated by: Greg Whitten MD @ 04/12/2022 9:56:00 AM (Electronically Signed)
== END 2022-04-12 08:47 | disposition home or self-care (01) ==
LOC: MAMMO 08:48
PROVIDERS: PCP Family Medicine; Visit Provider Family Medicine
DX: Z12.31 Encounter for screening mammogram for malignant neoplasm of breast (principal)
CPT/HCPCS: 77067

== ENCOUNTER 2022-06-06 09:23 | Outpatient (CLI) | payer BC, SELFPAY | END 2022-06-06 09:24 | disposition home or self-care (01) | LOC: NFLDREF 06-08 14:52 | PROVIDERS: PCP Family Medicine; Referring Provider Family Medicine; Visit Provider Family Medicine | DX: N39.0 Urinary tract infection, site not specified (principal) | CPT/HCPCS: 87086; 87186 ==

== ENCOUNTER 2022-11-19 13:56 | Outpatient (CLI) | payer BC, SELFPAY | END 2022-11-19 13:57 | disposition home or self-care (01) | LOC: NFLDREF 11-21 20:30 | PROVIDERS: PCP Family Medicine; Referring Provider Family Medicine; Visit Provider Family Medicine | DX: R30.0 Dysuria (principal) | CPT/HCPCS: 87086; 87186 ==

== ENCOUNTER 2023-01-09 09:33 | Outpatient (CLI) | payer BC, SELFPAY | END 2023-01-09 09:34 | disposition home or self-care (01) | PROVIDERS: PCP Family Medicine; Visit Provider Family Medicine | DX: I10 Essential (primary) hypertension (principal); E78.2 Mixed hyperlipidemia | CPT/HCPCS: 80048; 80061 ==

== ENCOUNTER 2024-01-01 10:34 | Outpatient (CLI) | payer BC, SELFPAY ==
--- OUTSIDE RECORDS SUMMARY | 2024-01-01 10:37 | XMS_ITS | Clinical Summary ---
Author Organization [facility] Address [address] [place] [address]. [place] [address] Care Team Providers Care Ceramic Engineering Professor Name Role Phone Stan Lomas MD Primary Care Provider Allergies Active Allergy Reactions Criticality Noted Date Comments No Known Drug Allergy 11/04/2003 Medications MULTI-VITAMIN OR TABS one daily 0 11/04/19 04 Active VITAMIN E 400 UNIT OR CAPS 1 qod 3 MONTHS 1 YEAR 01/04/20 07 Active VITAMIN C 500 MG OR TABS ONE TABLET DAILY 3 MONTHS 1 YEAR 01/04/20 07 Active simvastatin (ZOCOR) 40 MG tabletIndications: Mixed hyperlipidemia Take 1 tablet by mouth at HS 90 tablet 3 02/20/19 13 Active losartan (COZAAR) 50 MG tabletIndications: Unspecified essential hypertension Take 0.5 tablets by mouth daily. 90 tablet 3 02/20/19 13 Active Additional Information Patient not taking.Reported on 02/08/2021 estradiol (ESTRACE) 1 MG tabletIndications: Need for prophylactic hormone replacement therapy (postmenopausal) Take 1 tablet by mouth daily. 90 tablet 3 02/20/19 13 Active Additional Information Patient not taking.Reported on 02/08/2021 irbesartan (AVAPRO) 150 MG tablet Take 150 mg by mouth daily 02/02/20 21 Active Active Problems Problem Noted Date Diagnosed Date HYPERLIPIDEMIA LDL GOAL <130 12/11/2009 Essential hypertension 02/14/2006 Overview (11/11/2014): Problem list name updated by automated process. Provider to review Mixed hyperlipidemia 01/16/2005 Family history of malignant neoplasm of breast 1 03/19/2004 Status post hysterectomy Overview (02/21/2012): 2008 Resolved Problems Problem Noted Date Diagnosed Date Resolved Date Excessive or frequent menstruation 02/14/2006 05/03/2008 Immunizations Name Administration Dates Next Due HepB 02/17/2000,09/13/1999,08/16/1999 Influenza (IIV3) PF 11/03/2008,01/06/2008,2005,12/12/2004,12/22/2002 TDAP Vaccine (Adacel) 06/27/2011 Family History Medical [...] 0 (1 standard drink = 0.6 oz pur e alcohol) Adolescent Education Answer Date Record ed Getting School Help Needed Not on file 11/19 Comments No Sex and Gender Information Value Date Recorded Sex Assigned at Not on file Legal Sex Female 4:22 AM REFINERY SUPERINTENDENT Gender Identity Not on file Sexual Orientation Not on file 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 on file Not on file Not on file Last Filed Vital Signs Vital Sign Reading Time Taken Comments Blood Pressure 132/80 02/21/2012 9:58 AM REFINERY SUPERINTENDENT Pulse 76 02/21/2012 9:58 AM REFINERY SUPERINTENDENT Temperature 36.6 C (97.8 F) 02/21/2012 9:58 AM REFINERY SUPERINTENDENT Respiratory Rate 18 08/13/2006 10:45 AM CDT Oxygen Saturation 99% 02/21/2012 9:58 AM REFINERY SUPERINTENDENT Inhaled Oxygen Concentration - - Weight 101.6 kg (224 lb) 02/21/2012 9:58 AM REFINERY SUPERINTENDENT Height 174.6 cm (5' 8.75) 02/21/2012 9:58 AM CS T Body Mass Index 33.32 02/21/2012 9:58 AM REFINERY SUPERINTENDENT Plan of Treatment Health Maintenance Due Date Last Done Comments ADVANCE CARE PLANNING 1965 ANNUAL REVIEW OF HM ORDERS 1965 CT COLONOGRAPHY 1965 FIT 1965 FLEX SIG 1965 sDNA (Cologuard) 1965 COLONOSCOPY 09/11/1975 COLORECTAL CANCER SCREENING 09/11/1975 HIV SCREENING 1980 HEPATITIS C SCREENING 09/11/1983 YEARLY PREVENTIVE VISIT 02/08/2012 02/08/20, 01/18/2010, 01/05/2009, Additional history exists MAMMO SCREENING 12/27/2012 12/27/2010, 08/11, 12/16/2007, Additional history exists BMP 02/12/2013 02/13/2012, 09/2009, 01/05/2009, Additional history exists LIPID 02/12/2013 02/13/2012, 01/12, 01/18/2010, Additional history exists GLUCOSE 02/12/2015 02/13/2012, 09/2009, 01/05/2009, Additional history exists ZOSTER IMMUNIZATION (1 of 2) 09/11/2015 PHQ-2 (once per calendar year) 2023 COVID-19 Vaccine (3 - 2023- season) 2023 07/18/2020, 06/27/2020 INFLUENZA VACCINE (#1) 2023 , 10/21/2020, 10/13/2019, Additional history exists DTAP/TDAP/TD IMMUNIZATION (3 - Td or Tdap) 02/01/2031 02/01/2021, 06/27/2011, 06/27/2011 RSV VACCINE (1 - 1-dose 75+ series) 2040 HEPATITIS B IMMUNIZATION Completed 001, 09/13/1999, 08/16/1999 PAP Discontinued 01/05/2009, 12/13, 02/08/2006, Additional history exists HPV IMMUNIZATION Aged Out No longer e ligible based on patient's age to complete this topic MENINGITIS IMMUNIZATION Aged Out No l onger eligible based on patient's age to complete this topic Pneumococcal Vaccine: Pediatrics (0 to 5 Years) and At-Risk Patients (6 to 64 Years) Aged Out No longer eligible based on patient's age to complete this topic RSV MONOCLONAL ANTIBODY Aged Out No l onger eligible based on patient's age to complete this topic Procedures Procedure Name Priority Date/Time Associated Diagnosis Comments LIPID REFLEX TO DIRECT LDL PANEL Routine 02/13/2012 8:45 AM REFINERY SUPERINTENDENT Hyperlipidemia LDL goal <130 HYPERTENSION NOS BASIC METABOLIC PANEL Routine 02/13/2012 8:45 AM REFINERY SUPERINTENDENT Hyperlipidemia LDL goal <130 HYPERTENSION NOS MA SCREENING DIGITAL BILATERAL Routine 12/27/2010 DIAGNOSIS NOT YET DEFINED HCL PAP THIN LAYER SCREEN Routine 01/05/2009 12:00 AM REFINERY SUPERINTENDENT Well Woman Exam with Routine Gynecological Exam from Last 3 Months or Most Recently Relevant to Health Maintenance Results * (ABNORMAL) Lipid panel reflex to direct LDL (02/13/2012 8:45 AM REFINERY SUPERINTENDENT) Cholesterol 211(H) 0 - 200 mg/dL [facility] Comment: LDL Cholesterol is the primary guide to therapy. The NCEP recommends further evaluation of: patients with cholesterol greater than 200 mg/dL if additional risk factors are present, cholesterol greater than 240 mg/dL, triglycerides greater than 150 mg/dL, or HDL less than 40 mg/dL. Triglycerides 112 0 - 150 mg/dL [facility] Comment:Fasting specimen HDL Cholesterol 55 50 - 110 mg/dL [facility] LDL Cholesterol Calculated 133(H) 0 - 129 mg/dL [facility] Comment: LDL Cholesterol is the primary guide to therapy: LDL-cholesterol goal in high risk patients is <100 mg/dL and in very high risk patients is <70 mg/dL. VLDL-Cholesterol 22 0 - 30 mg/dL [facility] Cholesterol/HDL Ratio 3.8 0.0 - 5.0 [facility] Blood specimen (specimen) 02/13/2012 8:45 AM REFINERY SUPERINTENDENT 02/19/2012 8:52 AM REFINERY SUPERINTENDENT us Miky Langford MD LAB - BLOOD ORDERABLES Final Res ult [facility] [address] [place] [address] * Basic metabolic panel (02/13/2012 8:45 AM REFINERY SUPERINTENDENT) Sodium 143 133 - 144 mmol/L [facility] Potassium 5.3 3.4 - 5.3 mmol/L [facility] Chloride 107 94 - 109 mmol/L [facility] Carbon Dioxide 24 20 - 32 mmol/L [facility] Anion Gap 13 6 - 17 mmol/L [facility] Glucose 73 60 - 99 mg/dL [facility] Comment:Fasting specimen Urea Nitrogen 14 5 - 24 mg/dL [facility] Creatinine 0.67 0.52 - 1.04 mg/dL [facility] GFR Estimate >90 >60 mL/min/1.7 m2 [facility] GFR Estimate If Black >90 >60 mL/min/1.7 m2 [facility] Calcium 10.1 8.5 - 10.4 mg/dL [facility] Blood specimen (specimen) 02/13/2012 8:45 AM REFINERY SUPERINTENDENT 02/19/2012 8:52 AM REFINERY SUPERINTENDENT us Miky Langford MD LAB - BLOOD ORDERABLES Final Res ult [facility] [address] [place] [address] * Mammo Screening digital (bilat) (12/27/2010) Anatomical Region Laterality Modality Breast Bilateral Other 12/27/2010 us Bienvenido Higgins MD IMG MAMMOGRAPHY ORDERABL ES Final Result * A THIN LAYER PAP SCREEN (01/05/2009 12:00 AM REFINERY SUPERINTENDENT) PAP NIL LEXY Goodrich Report Patient Name: NATHALIE RODRIGUEZ MR#: [id number] Specimen #: [id number] Collected: 01/05/2009 Received: 01/05/2009 Reported: 01/10/2009 09:39 Ordering Phy(s): BIENVENIDO HIGGINS SPECIMEN/STAIN PROCESS: Pap thin layer prep screening ([facility]) Pap-Cyto x 1, Reflex HPV x 1 SOURCE: Cervical, endocervical Pap thin layer prep screening ([facility]) SPECIMEN ADEQUACY: Satisfactory for evaluation. -Transformation zone component absent. CYTOLOGIC INTERPRETATION: Negative for Intraepithelial Lesion or Malignancy Electronically signed out by: TOMEKA Batista (ASCP) Processed and screened at [facility] CLINICAL HISTORY: Hysterectomy, Previous normal pap Date of Last Pap: 01-06-08, TESTING LAB LOCATION: [address] [address] COLLECTION SITE: Client: [facility] Location: [facility] (S) COPATH 01/05/2009 01/05/2009 2:2 4 PM REFINERY SUPERINTENDENT Bienvenido Higgins MD LABORATORY Final Re sult COPATH from Last 3 Months or Most Recently Relevant to Health Maintenance Insurance [facility] [address] Advance Directives For more information, please contact: [phone] * No Code Status (Latest Code Status on File) Date Activated Date Inactivated Comments 11/10/2003 4:45 PM 11/10/2003 4:45 PM Care Teams Ceramic Engineering Professor Relationship Specialty Start Date End Date Stan Lomas MD PCP - General Family Practice 05/02/16
--- OUTSIDE RECORDS SUMMARY | 2024-01-01 10:38 | XMS_ITS | Encounter Summary ---
Author Organization [facility] Address [address] [place] [address]. [place] [address] Care Team Providers Care Evp And Chief Operating Officer Name Role Phone Dominick Shanks MD Primary Care Provider + Stan Lomas MD Primary Care Provider [phone] Rowan Rivas MD Unavailable + [phone] Encounter Details Date Type Department Care Team (Late st Contact Info) Description 11/02/[address] [phone] Dominick Shanks MD [place] [address] SCAN - HISTORY AND PHYSICAL (Primary Dx) Social History Tobacco Use Types Packs/Day Years Used Date Smoking Tobacco: Never Smokeless Tobacco: Never Alcohol Use Standard Drinks/Week Comments No 0 (1 standard drink = 0.6 oz pur e alcohol) Comments No Sex and Gender Information Value Date Recorded Sex Assigned at Not on file Legal Sex Female 4:22 AM MARINE ELECTRICIAN HELPER Gender Identity Not on file Sexual Orientation Not on file 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 Not on file Not on file documented as of this encounter Plan of Treatment Not on file documented as of this encounter Visit Diagnoses Diagnosis SCAN - HISTORY AND PHYSICAL- Primary documented in this encounter Care Teams Evp And Chief Operating Officer Relationship Specialty Start Date End Date Dominick Shanks MD [place] [address] PCP - General 08/17/02 05/01/16 Stan Lomas MD [place] [address] PCP - General Family Practice 05/02/16 Rowan Rivas MD [address] [place] [address] Assigned Heart and Vascular Provider 02/12/21 08/10/22 documented as of this encounter
--- OUTSIDE RECORDS SUMMARY | 2024-01-01 10:38 | XMS_ITS | Clinical Summary ---
Author Organization [facility] Address [place], [place] [address] Care Team Providers Care Lens Grinder Rough Name Role Phone Dominick Shanks MD Primary Care Provider + Allergies No known active allergies Medications Medication Sig Dispensed Refills Start Date End Date Status COZAAR 25 MG TAB take 1 tablet (25 mg) by oral route once daily 0 Active CRESTOR 10 MG TAB take 1 tablet (10 mg) by oral route once daily 0 Active MULTIVITAMIN TAB take 1 tablet by oral route once daily with food 0 Active IBUPROFEN 200 MG TAB Take 1 to 3 tablets by mouth every 6 hours as needed for pain 60 0 08/20/2006 Active ESTRADIOL 1 MG TAB Take 1 tablet by mouth daily for 1 month. 30 1 08/20/2006 Active Additional Information Patient taking differently: 1/2 tablet QOD, Reported on 05/24/2018 Active Problems Problem Noted Date Diagnosed Date Excessive or frequent menstruation 08/07/2006 Family History Medical History Relation Name Comments Cancer-breast Maternal Aunt pre salud Cancer-colon No Family History Cancer-ovarian No Family History Cancer-prostate No Family History Relation Name Status Comments Maternal Aunt Social History Tobacco Use Types Packs/Day Years Used Date Smoking Tobacco: Never Smokeless Tobacco: Never Sex and Gender Information Value Date Recorded Sex Assigned at Not on file Gender Identity Not on file Sexual Orientation Not on file Obstetrics History Last Filed Vital Signs Vital Sign Reading Time Taken Comments Blood Pressure 135/78 05/24/2018 9:18 AM CDT Pulse 86 05/24/2018 9:18 AM CDT Temperature 36.9 C (98.5 F) 05/24/2018 9:18 AM CDT Respiratory Rate 16 05/24/2018 9:18 AM CDT Oxygen Saturation 94% 05/24/2018 9:18 AM CDT Inhaled Oxygen Concentration - - Weight 97 kg (213 lb 12.8 oz) 05/24/2018 9:18 AM CDT Height 175.3 cm (5' 9) 08/19/2006 6:23 AM CDT Body Mass Index - - Plan of Treatment Not on file Advance Directives * Full Code (Latest Code Status on File) Date Activated Date Inactivated Comments 08/19/2006 6:15 AM 08/19/2006 10:37 AM Care Teams Lens Grinder Rough Relationship Specialty Start Date End Date Dominick Shanks MD [facility] - [address] [place] [id number] PCP - General 08/15/06
--- OUTSIDE RECORDS SUMMARY | 2024-01-01 10:38 | XMS_ITS | Encounter Summary ---
Author Organization [facility] Address [address] [place] [address]. [place] [address] Care Team Providers Care Destination Imagination Coordinator Name Role Phone Dominick Shanks MD Primary Care Provider + Stan Lomas MD Primary Care Provider [phone] Rowan Rivas MD Unavailable + [phone] Encounter Details Date Type Department Care Team (Late st Contact Info) Description 11/02/[address] [phone] Dominick Shanks MD [place] [address] SCAN - OPERATIVE REPORT (Primary Dx) Social History Tobacco Use Types Packs/Day Years Used Date Smoking Tobacco: Never Smokeless Tobacco: Never Alcohol Use Standard Drinks/Week Comments No 0 (1 standard drink = 0.6 oz pur e alcohol) Comments No Sex and Gender Information Value Date Recorded Sex Assigned at Not on file Legal Sex Female 4:22 AM RELOCATION COORDINATOR Gender Identity Not on file Sexual Orientation Not on file 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 file Not on file Not on file documented as of this encounter Plan of Treatment Not on file documented as of this encounter Visit Diagnoses Diagnosis SCAN - OPERATIVE REPORT- Primary documented in this encounter Care Teams Destination Imagination Coordinator Relationship Specialty Start Date End Date Dominick Shanks MD [place] [address] PCP - General 08/17/02 05/01/16 Stan Lomas MD [place] [address] PCP - General Family Practice 05/02/16 Rowan Rivas MD [address] [place] [address] Assigned Heart and Vascular Provider 02/12/21 08/10/22 documented as of this encounter
--- OUTSIDE RECORDS SUMMARY | 2024-01-01 10:38 | XMS_ITS | Referral Summary ---
Author Organization [facility] Address [address] [place] [address]. 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 on file Not on file Not on file Last Filed Vital Signs Vital Sign Reading Time Taken Comments Blood Pressure 132/80 02/21/2012 9:58 AM SCIENTIFIC PROCESS OPERATOR Pulse 76 02/21/2012 9:58 AM SCIENTIFIC PROCESS OPERATOR Temperature 36.6 C (97.8 F) 02/21/2012 9:58 AM SCIENTIFIC PROCESS OPERATOR Respiratory Rate 18 08/13/2006 10:45 AM CDT Oxygen Saturation 99% 02/21/2012 9:58 AM SCIENTIFIC PROCESS OPERATOR Inhaled Oxygen Concentration - - Weight 101.6 kg (224 lb) 02/21/2012 9:58 AM SCIENTIFIC PROCESS OPERATOR Height 174.6 cm (5' 8.75) 02/21/2012 9:58 AM CS T Body Mass Index 33.32 02/21/2012 9:58 AM SCIENTIFIC PROCESS OPERATOR Plan of Treatment Not on file Procedures Procedure Name Priority Date/Time Associated Diagnosis Comments LIPID REFLEX TO DIRECT LDL PANEL Routine 02/13/2012 8:45 AM SCIENTIFIC PROCESS OPERATOR Hyperlipidemia LDL goal <130 HYPERTENSION NOS BASIC METABOLIC PANEL Routine 02/13/2012 8:45 AM SCIENTIFIC PROCESS OPERATOR Hyperlipidemia LDL goal <130 HYPERTENSION NOS MA SCREENING DIGITAL BILATERAL Routine 12/27/2010 DIAGNOSIS NOT YET DEFINED HCL PAP THIN LAYER SCREEN Routine 01/05/2009 12:00 AM SCIENTIFIC PROCESS OPERATOR Well Woman Exam with Routine Gynecological Exam from Last 3 Months or Most Recently Relevant to Health Maintenance Results * (ABNORMAL) Lipid panel reflex to direct LDL (02/13/2012 8:45 AM SCIENTIFIC PROCESS OPERATOR) Cholesterol 211(H) 0 - 200 mg/dL [facility] Comment: LDL Cholesterol is the primary guide to therapy. The NCEP recommends further evaluation of: patients with cholesterol greater than 200 mg/dL if additional risk factors are present, cholesterol greater than 240 mg/dL, triglycerides greater than 150 mg/dL, or HDL less than 40 mg/dL. Triglycerides 112 0 - 150 mg/dL [facility] Comment:Fasting specimen HDL Cholesterol 55 50 - 110 mg/dL [facility] LDL Cholesterol Calculated 133(H) 0 - 129 mg/dL [facility] Comment: LDL Cholesterol is the primary guide to therapy: LDL-cholesterol goal in high risk patients is <100 mg/dL and in very high risk patients is <70 mg/dL. VLDL-Cholesterol 22 0 - 30 mg/dL [facility] Cholesterol/HDL Ratio 3.8 0.0 - 5.0 [facility] Blood specimen (specimen) 02/13/2012 8:45 AM SCIENTIFIC PROCESS OPERATOR 02/19/2012 8:52 AM SCIENTIFIC PROCESS OPERATOR us Miky Langford MD LAB - BLOOD ORDERABLES Final Res ult [facility] [address] [place] [address] * Basic metabolic panel (02/13/2012 8:45 AM SCIENTIFIC PROCESS OPERATOR) Sodium 143 133 - 144 mmol/L [facility] Potassium 5.3 3.4 - 5.3 mmol/L [facility] Chloride 107 94 - 109 mmol/L [facility] Carbon Dioxide 24 20 - 32 mmol/L [facility] Anion Gap 13 6 - 17 mmol/L [facility] Glucose 73 60 - 99 mg/dL [facility] Comment:Fasting specimen Urea Nitrogen 14 5 - 24 mg/dL [facility] Creatinine 0.67 0.52 - 1.04 mg/dL [facility] GFR Estimate >90 >60 mL/min/1.7 m2 [facility] GFR Estimate If Black >90 >60 mL/min/1.7 m2 [facility] Calcium 10.1 8.5 - 10.4 mg/dL [facility] Blood specimen (specimen) 02/13/2012 8:45 AM SCIENTIFIC PROCESS OPERATOR 02/19/2012 8:52 AM SCIENTIFIC PROCESS OPERATOR us Miky Langford MD LAB - BLOOD ORDERABLES Final Res ult [facility] [address] [place] [address] * Mammo Screening digital (bilat) (12/27/2010) Anatomical Region Laterality Modality Breast Bilateral Other 12/27/2010 Bienvenido Higgins MD IMG MAMMOGRAPHY ORDERABL ES Final Result * A THIN LAYER PAP SCREEN (01/05/2009 12:00 AM SCIENTIFIC PROCESS OPERATOR) PAP FRANCISCO Goodrich Report Patient Name: NATHALIE RODRIGUEZ MR#: [id number] Specimen #: [id number] Collected: 01/05/2009 Received: 01/05/2009 Reported: 01/10/2009 09:39 Ordering Phy(s): BIENVENIDO HIGGINS SPECIMEN/STAIN PROCESS: Pap thin layer prep screening ([facility]) Pap-Cyto x 1, Reflex HPV x 1 SOURCE: Cervical, endocervical Pap thin layer prep screening ([facility]) SPECIMEN ADEQUACY: Satisfactory for evaluation. -Transformation zone component absent. CYTOLOGIC INTERPRETATION: Negative for Intraepithelial Lesion or Malignancy Electronically signed out by: TOMEKA Batista (ASCP) Processed and screened at [facility] CLINICAL HISTORY: Hysterectomy, Previous normal pap Date of Last Pap: 01-06-08, TESTING LAB LOCATION: [address] [id number] COLLECTION SITE: Client: [facility] Location: [facility] (S) COPATH 01/05/2009 01/05/2009 2:2 4 PM SCIENTIFIC PROCESS OPERATOR Bienvenido Higgins MD LABORATORY Final Re sult COPATH from Last 3 Months or Most Recently Relevant to Health Maintenance Insurance [facility] Advance Directives For more information, please contact: [phone] * No Code Status (Latest Code Status on File) Date Activated Date Inactivated Comments 11/10/2003 4:45 PM 11/10/2003 4:45 PM Care Teams Custom Leather Products Maker Relationship Specialty Start Date End Date Stan Lomas MD PCP - General Family Practice 05/02/16
== END 2024-01-01 10:35 | disposition home or self-care (01) ==
PROVIDERS: PCP Family Medicine; Visit Provider Family Medicine
DX: Z00.00 Encounter for general adult medical examination without abnormal findings (principal); I10 Essential (primary) hypertension; E78.5 Hyperlipidemia, unspecified; E78.00 Pure hypercholesterolemia, unspecified; Z13.0 Encounter for screening for diseases of the blood and blood-forming organs and certain disorders involving the immune mechanism; Z13.89 Encounter for screening for other disorder
CPT/HCPCS: 80048; 80061

== ENCOUNTER 2024-06-10 08:59 | Outpatient (CLI) | payer BC, SELFPAY ==
--- NOTE | 2024-06-10 09:15 | CRLHL7_ITS ---
For Patients: As a result of the Century Cures Act, medical imaging exams and procedure reports are released immediately into your electronic medical record. You may view this report before your referring provider. If you have questions, please contact your health care provider. INDICATION: BILATERAL SCREENING MAMMOGRAM, ASYMPTOMATIC 58 Y/O FEMALE COMPARISON: 04/12/22, 04/22/19, 03/28/17 TECHNIQUE: CC and MLO views were obtained. These mammographic images have been obtained using full-field digital technique. These mammographic images were interpreted with the benefit of computer aided detection and tomosynthesis. BREAST COMPOSITION: The breasts are almost entirely fatty. FINDINGS: No suspicious findings. ASSESSMENT: BI-RADS 1 Negative RECOMMENDATION: Annual screening mammogram. A lay language report of this examination will be provided to the patient. Dictated by: Crescencio Gonzalez MD @ 06/18/2024 10:55:06 (Electronically Signed)
== END 2024-06-10 09:00 | disposition home or self-care (01) ==
LOC: MAMMO 09:00
PROVIDERS: PCP Family Medicine; Visit Provider Family Medicine
DX: Z12.31 Encounter for screening mammogram for malignant neoplasm of breast (principal)
CPT/HCPCS: 77063; 77067

== ENCOUNTER 2024-09-03 06:57 | Outpatient (CLI) | payer BC, SELFPAY ==
--- NOTE | 2024-09-03 08:34 | P.ANES_ITS ---
Anesthesia Charges Start Date/Time Anesthesia Start Date: 09/03/24 Anesthesia Start Time: 07:50 Stop Date/Time Anesthesia Stop Date: 09/03/24 Anesthesia Stop Time: 08:32 Coding CPT Codes CPT Codes: RO LWR INTST NDSC NOS - 16821 ([id number]) P2 - PATIENT W/MILD SYST DISEASE, QK - TAXI CAB DRIVER 2-4 CNCRNT ANES PROC, QX - HISTORIAN DRAMATIC ARTS SVC W/ MD MED DIRECTION
--- NOTE | 2024-09-03 08:34 | W.ANESCHARGE ---
Anesthesia Charges Start Date/Time Anesthesia Start Date: 09/03/24 Anesthesia Start Time: 07:50 Stop Date/Time Anesthesia Stop Date: 09/03/24 Anesthesia Stop Time: 08:32 Coding CPT Codes CPT Codes: RO LWR INTST NDSC NOS - 08807 ([id number]) P2 - PATIENT W/MILD SYST DISEASE, QK - BRAKE RELINER 2-4 CNCRNT ANES PROC, QX - LEGAL EDITOR SVC W/ MD MED DIRECTION
--- NOTE | 2024-09-03 08:49 | P.ANES_ITS ---
Anesthesia Charges Start Date/Time Anesthesia Start Date: 09/03/24 Anesthesia Start Time: 07:50 Stop Date/Time Anesthesia Stop Date: 09/03/24 Anesthesia Stop Time: 08:32 Coding CPT Codes CPT Codes: RO LWR INTST NDSC NOS - 08805 ([id number]) QK - CHAIN SAW OPERATOR 2-4 CNCRNT RO PROC, QX - HOUSING MANAGEMENT REPRESENTATIVE SVC W/ MD MED DIRECTION, P2 - PATIENT W/MILD SYST DISEASE
--- NOTE | 2024-09-03 08:49 | W.ANESCHARGE ---
Anesthesia Charges Start Date/Time Anesthesia Start Date: 09/03/24 Anesthesia Start Time: 07:50 Stop Date/Time Anesthesia Stop Date: 09/03/24 Anesthesia Stop Time: 08:32 Coding CPT Codes CPT Codes: RO LWR INTST NDSC NOS - 02203 ([id number]) QK - AIRPORT GUIDE 2-4 CNCRNT RO PROC, QX - HYDRAULIC DREDGE OPERATOR SVC W/ MD MED DIRECTION, P2 - PATIENT W/MILD SYST DISEASE
== END 2024-09-03 06:58 | disposition home or self-care (01) ==
LOC: OP CLINIC 06:58
PROVIDERS: PCP Family Medicine; Visit Provider Surgery
DX: Z12.11 Encounter for screening for malignant neoplasm of colon (principal); Z86.0100 Personal history of colon polyps, unspecified; D12.2 Benign neoplasm of ascending colon; D12.3 Benign neoplasm of transverse colon; D12.5 Benign neoplasm of sigmoid colon; D12.8 Benign neoplasm of rectum; K64.8 Other hemorrhoids
CPT/HCPCS: 00811; 00812; 45385; 88305; J2704

== ENCOUNTER 2024-09-28 13:38 | Outpatient (CLI) | payer BC, SELFPAY | END 2024-09-28 13:39 | disposition home or self-care (01) | LOC: NFLDREF 10-01 12:42 | PROVIDERS: PCP Family Medicine; Referring Provider Family Medicine; Visit Provider Physician Assistant | DX: N39.0 Urinary tract infection, site not specified (principal); B96.20 Unspecified Escherichia coli [E. coli] as the cause of diseases classified elsewhere | CPT/HCPCS: 87086 ==

== ENCOUNTER 2024-12-16 09:51 | Outpatient (CLI) | payer BC, SELFPAY | END 2024-12-16 09:52 | disposition home or self-care (01) | PROVIDERS: PCP Family Medicine; Visit Provider Family Medicine | DX: I10 Essential (primary) hypertension (principal); E78.00 Pure hypercholesterolemia, unspecified | CPT/HCPCS: 80048; 80061; 87086 ==